=== PATIENT | male | born 1935 | race Caucasian/White ===

== ENCOUNTER 2017-03-01 08:23 | Emergency (ER) | payer OTHER, BC ==
[~2017-03-01] VITALS: Ht 172.7 cm; Wt 89.0 kg
[~2017-03-01 08:23] MED LIST: ASCO500T16 PO; ASPEC325 PO; CARV6.252 PO; CHOL100027 PO; CLC100X PO; LISI-461 PO; MULT-506 PO; ZCR20 PO
[2017-03-01 08:27] VITALS: TEMP 36.6; Ht 172.7 cm; Wt 89.0 kg
[2017-03-01] MEDS ORDERED: LISI-461 PO (08:55)
--- NOTE | 2017-03-01 08:56 | EMERGENCY ROOM VISIT NOTE ---
History Report prepared by Lm: Neetu Santos Under the Supervision of: Dr. Divina Galarza M.D. First contact with patient: 08:35 Chief Complaint: RECTAL PAIN Stated Complaint: RECTAL PAIN/HEMORRHOIDS Nursing Triage Summary: I think my "hemorrhoids are acting up" I am having rectal pain. "I dont know if there is any blood" History of Present Illness The patient is an 82 year old male who presents to the Emergency Room with complaints of persistent rectal pain that began two days ago. He currently rates his discomfort as a 5/10 in severity. The patient states that he has a history of hemorrhoids, noting that he has noticed increased pain for the past two days. He reports that his pain worsened suddenly. The patient reports increased bowel movements that are soft, but denies passing any large stools recently. He states that he began noticing that yesterday morning, but denies any hematochezia or melena. The patient additionally associates difficulty urinating and pain with urination. The patient denies any history of bowel surgeries or ulcerative colitis. He denies any abdominal pain. Source of History: patient Onset: two days ago Position: other (rectal) Symptom Intensity: 5/10 Timing: other (persistent) Associated Symptoms: + urinary symptoms (pain with urination), No abdominal pain, No melena, No hematochezia Note: Associated Symptoms: increased bowel movements that are soft. Review of Systems See HPI for pertinent positives & negatives. A total of 10 systems reviewed and were otherwise negative. Past Medical & Surgical Medical Problems: (1) Osteoporosis (2) Pneumothorax (3) Prostate ca Family History FH: cancer Social History Smoking Status: Never Smoker Marital Status: Housing Status: lives alone Occupation Status: retired Current/Historical Medications Scheduled Ascorbic Acid (Ascorbic Acid), 500 MG PO DAILY Aspirin (Aspirin), 325 MG PO QAM Carvedilol (Coreg), 12.5 MG PO BID Cholecalciferol (Vitamin D 1000 Unit), 1,000 INTER.UNIT PO DAILY Docusate Sodium (Docusate Sodium), 100 MG PO BID Lisinopril (Zestril), 10 MG PO DAILY Multivitamin (Multivitamin), 1 TAB PO DAILY Simvastatin (Simvastatin), 20 MG PO PM Allergies Coded Allergies: Sulfa Drugs (Unverified Allergy, Mild, UNKNOWN, 03/01/17) Physical Exam Vital Signs Date Time Temp Pulse Resp B/P (MAP) Pulse Ox O2 Delivery O2 Flow Rate FiO2 03/01/17 12:13 86 18 169/89 96 Room Air 03/01/17 10:39 90 16 175/82 97 Room Air 03/01/17 09:30 84 20 153/79 99 Room Air 03/01/17 08:27 36.6 90 18 183/94 95 Physical Exam Vital signs reviewed. General: Well-appearing male, in no significant distress. HEENT: No scleral icterus, PERRLA, neck supple. Atraumatic. Cardiovascular: Regular rate and rhythm, no extra sounds. Pulmonary: Clear to auscultation bilaterally, normal work of breathing. Abdomen: Soft, nontender, nondistended, positive bowel sounds. Rectal: Small amount of stool in rectum, no external hemorrhoids, no palpable mass, stool ball noted, guaiac negative Musculoskeletal: Atraumatic, no peripheral edema. Neurologic: Patient awake alert and oriented x 3 Skin: Warm, dry, no rash Medical Decision & Procedures ER Provider Diagnostic Interpretation: X-ray results as stated below per interpretation by me and the radiologist: SAM CLINICAL HISTORY: 82 years-old Male presenting with rectal pain, constipation. TECHNIQUE: Single supine view of the abdomen was obtained. COMPARISON: CT from 05/13/2009. FINDINGS: Brachytherapy seeds noted in the prostate. Large stool burden in the rectum. Mild gaseous distention of the more proximal colon. Moderate stool burden noted in the right colon. No bowel obstruction. No gross pneumoperitoneum. Osseous structures demonstrate mild degenerative change in the lumbar spine. Lung bases clear. IMPRESSION: 1. Large stool burden in the rectum. Electronically signed by: Thomas Vasquez M.D. 03/01/2017 10:10 AM Dictated Date/Time: 03/01/2017 10:08 AM Laboratory Results 03/01/17 09:23 Red Blood Count 4.66, Mean Corpuscular Volume 88.4, Mean Corpuscular Hemoglobin 30.0, Mean Corpuscular Hemoglobin Concent 34.0, Mean Platelet Volume 9.6, Neutrophils (%) (Auto) 75.8, Lymphocytes (%) (Auto) 11.8, Monocytes (%) (Auto) 11.4, Eosinophils (%) (Auto) 0.6, Basophils (%) (Auto) 0.2, Neutrophils # (Auto ) 6.29, Lymphocytes # (Auto) 0.98, Monocytes # (Auto) 0.95, Eosinophils # (Auto ) 0.05, Basophils # (Auto) 0.02 03/01/17 09:23 Test 03/01/17 09:23 03/01/17 09:45 White Blood Count 8.31 K/uL (4.8-10.8) Red Blood Count 4.66 M/uL (4.7-6.1) Hemoglobin 14.0 g/dL (14.0-18.0) Hematocrit 41.2 % (42-52) Mean Corpuscular Volume 88.4 fL (80-100) Mean Corpuscular Hemoglobin 30.0 pg (25-34) Mean Corpuscular Hemoglobin Concent 34.0 g/dl (32-36) Platelet Count 251 K/uL (130-400) Mean Platelet Volume 9.6 fL (7.4-10.4) Neutrophils (%) (Auto) 75.8 % Lymphocytes (%) (Auto) 11.8 % Monocytes (%) (Auto) 11.4 % Eosinophils (%) (Auto) 0.6 % Basophils (%) (Auto) 0.2 % Neutrophils # (Auto) 6.29 K/uL (1.4-6.5) Lymphocytes # (Auto) 0.98 K/uL (1.2-3.4) Monocytes # (Auto) 0.95 K/uL (0.11-0.59) Eosinophils # (Auto) 0.05 K/uL (0-0.5) Basophils # (Auto) 0.02 K/uL (0-0.2) RDW Standard Deviation 45.5 fL (36.4-46.3) RDW Coefficient of Variation 14.1 % (11.5-14.5) Immature Granulocyte % (Auto) 0.2 % Immature Granulocyte # (Auto) 0.02 K/uL (0.00-0.02) Anion Gap 8.0 mmol/L (3-11) Est Creatinine Clear Calc Drug Dose 62.8 ml/min Estimated GFR () 81.4 Estimated GFR (Non- 70.3 BUN/Creatinine Ratio 24.7 (10-20) Calcium Level 8.7 mg/dl (8.5-10.1) Total Bilirubin 0.9 mg/dl (0.2-1) Direct Bilirubin 0.3 mg/dl (0-0.2) Aspartate Amino Transf (AST/SGOT) 20 U/L (15-37) Alanine Aminotransferase (ALT/SGPT) 22 U/L (12-78) Alkaline Phosphatase 73 U/L (45-117) Total Protein 7.0 gm/dl (6.4-8.2) Albumin 3.7 gm/dl (3.4-5.0) Urine Color DK YELLOW Urine Appearance CLEAR (CLEAR) Urine pH 5.5 (4.5-7.5) Urine Specific [place] 1.028 (1.000-1.030) Urine Protein NEG (NEG) Urine Glucose (UA) NEG (NEG) Urine Ketones 2+ (NEG) Urine Occult Blood NEG (NEG) Urine Nitrite NEG (NEG) Urine Bilirubin NEG (NEG) Urine Urobilinogen NEG (NEG) Urine Leukocyte Esterase NEG (NEG) Laboratory results per my review. Medications Administered Medications (Trade) Dose Ordered Sig/Alie Route Start Time Stop Time Status Last Admin Dose Admin Miscellaneous (Soap Suds Enema) 1 ea NOW STAT OH 03/01/17 10:43 03/01/17 10:47 DC 03/01/17 10:43 1 ED Course 0850: Past medical records reviewed. The patient was evaluated in room A11B. A complete history and physical examination was performed. 1043: Ordered Soap Suds Enema 1 ea OH. 1150: I reevaluated the patient and he is doing well after having a large bowel movement. I discussed all the exam findings with him and I discussed the treatment plan. He verbalized complete understanding and agreement. He is ready to go home. Medical Decision The patient is an 82 year old male who presents to the ED with complaints of rectal pain. Differentials include Perirectal abscess, prostatitis, UTI, urinary retention, constipation, diverticulitis This pt was evaluated and appeared to be in no distress. IV access was obtained and lab work was drawn. Abdominal XR reveals large fecal burden. Bladder scan is ~200ml. UA is negative for infection. Pt was given a soap suds enema with large results. Pt was feeling much improved and was d/c. He will increase fiber in his diet and continue metamucil. Medication Reconcilliation Current Medication List: was personally reviewed by me Blood Pressure Screening Patient's blood pressure: Elevated blood pressure Blood pressure disposition: Referred to PCP Impression Primary Impression: Fecal retention Scribe Attestation The scribe's documentation has been prepared under my direction and personally reviewed by me in its entirety. I confirm that the note above accurately reflects all work, treatment, procedures, and medical decision making performed by me. Departure Information Dispostion Home / Self-Care Referrals Esteban Alcala D.O. (PCP) Forms HOME CARE DOCUMENTATION FORM, IMPORTANT VISIT INFORMATION, WORK / SCHOOL INSTRUCTIONS Patient Instructions My [facility] Additional Instructions Diagnosis: Fecal retention Continue your Metamucil supplementation daily. Increase the fiber in your diet. Please drink plenty of clear fluids. Follow-up with your physician this week for reevaluation. Return to the ER for worsening of symptoms or any medical concerns.
[2017-03-01] MEDS ORDERED: DOCU1TAB6 PO (08:57)
[2017-03-01 09:56] LABS: BUN/CREATININE RATIO 24.7 (10-20); CALCIUM 8.7 mg/dl (8.5-10.1)
[2017-03-01 10:01] LABS: MANUAL MICROSCOPIC REQUIRED? NO; REVIEW REQ? NO; URINE APPEARANCE CLEAR (CLEAR); URINE BILIRUBIN NEG (NEG); URINE COLOR DK YELLOW; URINE NITRITE NEG (NEG); URINE PH 5.5 (4.5-7.5); URINE SPECIFIC GRAVITY 1.028 (1.000-1.030); UROBILINOGEN NEG (NEG); ZZUR CULT IF INDIC CLEAN CATCH NO
--- NOTE | 2017-03-01 10:11 | DIAGNOSTIC IMAGING REPORT ---
[facility]UB CLINICAL HISTORY: 82 years-old Male presenting with rectal pain, constipation. TECHNIQUE: Single supine view of the abdomen was obtained. COMPARISON: CT from 05/13/2009. FINDINGS: Brachytherapy seeds noted in the prostate. Large stool burden in the rectum. Mild gaseous distention of the more proximal colon. Moderate stool burden noted in the right colon. No bowel obstruction. No gross pneumoperitoneum. Osseous structures demonstrate mild degenerative change in the lumbar spine. Lung bases clear. IMPRESSION: 1. Large stool burden in the rectum. Electronically signed by: Thomas Vasquez M.D. 03/01/2017 10:10 AM Dictated Date/Time: 03/01/2017 10:08 AM
[2017-03-01 10:14] LABS: BASO % 0.2 %; BASO ABS # 0.02 K/uL (0-0.2); COMPLETE YES; EOS % 0.6 %; HEMATOCRIT 41.2 % (42-52); IG% 0.2 %; LYMPH % 11.8 %; LYMPH ABS # 0.98 K/uL (1.2-3.4); MEAN CELL VOLUME 88.4 fL (80-100); MEAN PLATELET VOLUME 9.6 fL (7.4-10.4); MONO % 11.4 %; NEUT % 75.8 %; PLATELET COUNT 251 K/uL (130-400); RED BLOOD COUNT 4.66 M/uL (4.7-6.1); WHITE BLOOD COUNT 8.31 K/uL (4.8-10.8)
[2017-03-01] MEDS ORDERED: SOAP SUDS ENEMA PR STA (10:43)
[2017-03-01 12:13] VITALS: BP 169/89; PULSE 86; O2SAT 96
== END 2017-03-01 12:37 | disposition home or self-care (01) ==
LOC: C.EDB 08:25 → C.EDA 12:37
DX: K59.00 Constipation, unspecified (principal); K64.9 Unspecified hemorrhoids; M81.0 Age-related osteoporosis without current pathological fracture; Z79.82 Long term (current) use of aspirin; Z85.46 Personal history of malignant neoplasm of prostate

== ENCOUNTER 2019-07-25 07:15 | Inpatient (IN) ==
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
--- NOTE | 2019-07-06 10:36 | PAT Medication Instructions ---
Medication Instructions Date of Service July 06, 2019 Home Medications ascorbic acid (vitamin C) 500 mg PO DAILY aspirin 325 mg PO DAILY carvedilol 12.5 mg PO BID cholecalciferol (vitamin D3) 2,000 unit PO DAILY docusate sodium [Stool Softener] 100 mg PO BID hydrochlorothiazide 12.5 mg PO 2XWK lisinopril 20 mg PO QAM setkxucv-yjf-VT-lycopen-lutein [Centrum Silver] 1 tab PO DAILY risedronate 35 mg PO WK simvastatin 40 mg PO HS ASK your surgeon for instructions aspirin 325 mg PO DAILY STOP taking 2 weeks before surgery vpetfevn-vtv-QX-lycopen-lutein [Centrum Silver] 1 tab PO DAILY DO NOT take the morning of surgery ascorbic acid (vitamin C) 500 mg PO DAILY cholecalciferol (vitamin D3) 2,000 unit PO DAILY docusate sodium [Stool Softener] 100 mg PO BID hydrochlorothiazide 12.5 mg PO 2XWK lisinopril 20 mg PO QAM Take morning of surgery With a small sip of water, OTHERWISE NOTHING TO EAT OR DRINK AFTER MIDNIGHT: carvedilol 12.5 mg PO BID Take evening before surgery carvedilol 12.5 mg PO BID docusate sodium [Stool Softener] 100 mg PO BID simvastatin 40 mg PO HS Other Notes If you have any questions please call us at [phone] or [phone] or or [phone]
--- NOTE | 2019-07-06 10:59 | XRay Report ---
TWO VIEW CHEST CLINICAL HISTORY: Preoperative examination. FINDINGS: PA and lateral chest radiographs are compared to study dated 06/27/2014. The heart is enlarge d noting atherosclerotic calcification of the thoracic aorta. The pulmonary vasculature is noncongest ed. The lungs appear hyperinflated and hyperlucent with flattening of the diaphragm and increased ret rosternal clear space. This suggests obstructive physiology. There is bibasilar scarring/atelectasis. No airspace consolidation or pleural effusion is identified. There is no pneumothorax. The skeletal structures are osteopenic. The bony thorax appears intact. IMPRESSION: Cardiomegaly and suspect emphysema with no active disease in the chest. ACT 112: Negative or not required by law. Electronically signed by: Trent Maciel M.D. 07/06/2019 10:58 AM
[2019-07-06 11:38] LABS: Albumin Level 3.6 gm/dl (3.4-5.0); BUN Creatinine Ratio 24.5 (10-20); Calcium 8.8 mg/dl (8.5-10.1); Creatinine Clr Calc Pharmacy 70.6 ml/min; Est GFR (African American) 92.5; Est GFR (Non-African American) 79.8
[2019-07-06 12:12] LABS: Basophils # (auto) 0.03 K/uL (0-0.2); Basophils % (auto) 0.4 %; Eosinophils % (auto) 2.8 %; Hematocrit (blood only) 42.8 % (42-52); Hemoglobin 14.5 g/dL (14.0-18.0); Immature Granulocytes # (auto) 0.02 K/uL (0.00-0.02); Immature Granulocytes % (auto) 0.3 %; Lymphocytes # (auto) 1.62 K/uL (1.2-3.4); Lymphocytes % (auto) 23.1 %; Mean Corpuscular Hemoglobin 29.8 pg (25-34); Mean Corpuscular Hgb Conc 33.9 g/dL (32-36); Mean Corpuscular Volume 88.1 fL (80-100); Mean Platelet Volume 9.7 fL (7.4-10.4); Monocytes # (auto) 0.82 K/uL (0.11-0.59); Monocytes % (auto) 11.7 %; Neutrophils # (auto) 4.33 K/uL (1.4-6.5); Neutrophils % (auto) 61.7 %; Platelet Count 271 K/uL (130-400); RDW Coefficient of Variation 14.1 % (11.5-14.5); Red Blood Count 4.86 M/uL (4.7-6.1); White Blood Count 7.02 K/uL (4.8-10.8)
--- NOTE | 2019-07-06 12:16 | Electrocardiogram Report ---
Test Reason : Blood Pressure : / mmHG Vent. Rate : 063 BPM Atrial Rate : 063 BPM P-R Int : 198 ms QRS Dur : 144 ms QT Int : 438 ms P-R-T Axes : 068 081 -14 degrees QTc Int : 448 ms Normal sinus rhythm Left bundle branch block Abnormal ECG When compared with ECG of 27-JUN-2014 18:29, Premature ventricular complexes are no longer Present Left bundle branch block is now Present Confirmed by Alcides Smiley ([id number]) on 07/06/2019 12:16:27 PM Referred By: Ashok Booth Confirmed By:Alcides Smiley
[2019-07-06 12:22] LABS: Partial Thromboplastin Ratio 0.9; Partial Thromboplastin Time 25.6 Seconds (21.0-31.0); Prothrombin Time 10.2 Seconds (9.0-12.0)
[2019-07-06 12:32] LABS: Estimated Average Glucose 117 mg/dl; Hemoglobin A1C 5.7 % (4.5-5.6)
[2019-07-10 14:03] LABS: Appearance Urine Clear (Clear); Bilirubin Urine Negative (Negative); Blood Urine Negative (Negative); Color Urine Dark Yellow; Glucose Urine UA Negative (Negative); Ketones Urine Trace (Negative); Leukocyte Esterase Urine Negative (Negative); Nitrite Urine Negative (Negative); Protein Urine Negative (Negative); Specific Gravity Urine 1.032 (1.000-1.030); Urobilinogen Urine Negative (Negative)
[~2019-07-25 07:15] MED LIST changes: +ACETAMINOPHEN 500 MG TAB PO SCH; -ASCO500T16 PO; -ASPEC325 PO; +BUPIVACAINE 0.5 % 5 MG/1 ML PF 10ML VIAL ONE; +BUPIVACAINE/EPINEPHRINE 0.25% 1:200,000 30 ML VIAL ONE; -CARV6.252 PO; +CEFAZOLIN 2000MG 2,000 MG/15 ML SYR IV SCH; -CHOL100027 PO; -CLC100X PO; +CeleBREX 200 MG CAP PO SCH; +DEXAMETHASONE SOD INJ 4 MG/ML VIAL ONE; +FAMOTIDINE 20 MG TAB PO SCH; +GABAPENTIN 300 MG CAP PO SCH; -LISI-461 PO; +LR 500ML BOLUS, THEN 15ML/HR IV SCH; -MULT-506 PO; +ROPIVACAINE 0.5% HCL/PF 150 MG, BUPIVACAINE 0.5% MPF 30 ML, EPINEPHrine 30MG/30ML (OR U... INSTIL SCH; +TRANEXAMIC ACID / 0.7% NACL 1,000 MG/100 ML BAG IV SCH; -ZCR20 PO; +dexAMETHasone 4 MG TAB PO SCH
[2019-07-25] MEDS ORDERED: MIDAZOLAM HCL 1 MG/ML 2ML VIAL ONE (07:56)
[2019-07-25] MEDS ORDERED: fentaNYL citrate 100 MCG/2 ML VIAL ONE (07:57)
--- NOTE | 2019-07-25 08:23 | History & Physical Bridge Note ---
Date of Service July 25, 2019 History & Physical Bridge Note I have examined the patient, reviewed the History & Physical and in the interval since the performance of the History & Physical I have noted the following changes of clinical significance: no changes noted
[2019-07-25] MEDS ORDERED: ORTHO JOINT ANESTHETIC ONE (08:54)
[2019-07-25] MEDS ORDERED: BACITRACIN INJ 50,000 UNIT VIAL ONE (08:55)
[2019-07-25] MEDS ORDERED: ONDANSETRON INJ 2 MG/ML 2 ML VIAL ONE (08:56)
[2019-07-25] MEDS ORDERED: PROPOFOL IV EMULSION 10 MG/ML 20 ML VIAL IV ONE ×2 (08:56)
[2019-07-25] MEDS ORDERED: LIDOCAINE HCL 2% 2 ML VIAL/AMP(20MG/ML) INFIL ONE (08:56)
[2019-07-25] MEDS ORDERED: ONDANSETRON INJ 2 MG/ML 2 ML VIAL IV PRN ×2 (09:14→13:02)
[2019-07-25] MEDS ORDERED: ePHEDrine sulfate 50 MG/ML AMP IV PRN (09:14)
[2019-07-25] MEDS ORDERED: ATROPINE SULFATE 0.1 MG/ML 10ML SYR IV PRN (09:14)
[2019-07-25] MEDS ORDERED: fentaNYL citrate 100 MCG/2 ML VIAL IV PRN (09:14)
--- NOTE | 2019-07-25 10:50 | Operative Report ---
Post Operative Report Pre & Post Diagnosis Operation Date: 07/25/19 09:40 Pre-Op Diagnosis: RIGHT KNEE OSTEOARTHRITIS Post-Op Diagnosis: RIGHT KNEE OSTEOARTHRITIS I identified the patient and participated in the time-out.: Yes Procedure Operation Date: 07/25/19 09:40 Actual Procedures p Right Total Knee Arthroplasty, Cemented(Right) utilizing [employer] journey 2 patient matched total knee arthroplasty 7 femur 6 tibia 13 poly-32 oval patella- Ashok Booth DO Surgeon Ashok Booth DO Pharmacy Scheduler [facility] Estimated Blood Loss 5 Findings Consistent with Post-Op Diagnosis Patient resents with severe end-stage tricompartmental degenerative joint disease subchondral cystic changes marginal osteophytes bone to bone eburnated bone with varus alignment 3 degree flexion contracture and moderate to large effusion Specimens Bone and cartilage Drains Medium bore Hemovac Anesthesia Type MAC Spinal Regional Complications none Disposition Accompanied Patient To Recovery: No Disposition: Recovery Room Indications Patient presents with severe end-stage tricompartmental degenerative joint disease right knee no response to conservative management the above intraoperative findings no time surgery patient fell attempted Visco supplementation corticosteroid injection relative rest activity modification nonsteroidals presents with a severe end-stage DJD for total knee arthroplasty with the above intraoperative findings Description of Procedure After proper prepping and draping of the Right lower extremity anterior midline incision was made over the region of the extensor extensor mechanism after meticulous hemostasis was obtained and maintained in subcutaneous tissues a medial parapatellar incision was made The patella was subluxed lateralward the medial lateral gutter were cleaned from any hypertrophic synovitis and scar tissue of the distal femoral block was placed and the distal femoral osteotomy cut was made subsequently the chamfers anterior and posterior osteotomy cuts were made utilizing the 4-in-1 block the tibia was subsequently subluxed anteriorward medial and ateral meniscal remnants were excised in their entirety remnants of the anterior and posterior cruciate ligaments were excised in their entirety excellent exposure of the proximal tibia was obtained the tibial osteotomy guide was placed on the proximal tibial osteotomy cut was made once again the knee was irrigated with copious amounts of sterile saline solution the patella was subsequently everted lateralward thickened scar tissue around the patella was removed the patella was subsequently cut utilizing a freehand technique and was drilled prepared for final preparation and placement of patella socially flexion-extension gaps were checked and the equal and symmetric trials were placed to the appropriate femoral and tibial trials with poly-spacer being placed for equal flexion and extension gaps and full range of motion including extension to 0 and flexion to 140 the trial components after having been taken to recovery range of motion was subsequently removed meticulous hemostasis was obtained and maintained subsequently a knee block injection of joint cocktail including ropivacaine 0.5% 150 mg. Bupivacaine 0.5% epinephrine 1-200,030 mL's toradol 30 mg dexamethasone 4 mg ketamine 10 mg clonidine 100 micrograms normal saline solution 30 mg was infiltrated into the soft tissues of the posterior knee medial lateral gutters and periosteal synovium special attention was paid to protect neurovascular structures at all times subsequently trial components having been removed the knee was irrigated with sterile saline solution. debris was removed the proximal tibia was subsequently prepared and was made ready for the placement of the tibial component tibial component was also cemented and tamped into position the femoral component was subsequently placed and cemented in the position the patellar component was subsequently cemented in position because hemostasis once again obtained and maintained wound having been thoroughly irrigated with debridement and debridement lavage was performed as well as a medial parapatellar incision closed with #1 Vicryl in interrupted fashion subcutaneous was closed with #2 Vicryl skin was closed with skin clips. PA-C was necessary for prepping and drapping as well as wound closure of deep fascia Sub cutaneous tissue and skin and was necessary for the case. A sterile compressive dressing was placed patient was taken to recovery in stable condition of report dictated by Leobardo I attest to the content of the Intraoperative Record and any orders documented therein. Any exceptions are noted below. I attest to the content of the Intraoperative Record and any orders documented therein. Any exceptions are noted below.
--- NOTE | 2019-07-25 11:59 | XRay Report ---
XR knee RT 1 or 2V routine CLINICAL HISTORY: 84 years-old Male presenting with Surgical Post Op. TECHNIQUE: Frontal and crosstable lateral views of the right knee were obtained. COMPARISON: None. FINDINGS: Postsurgical changes of total right knee arthroplasty with patellar resurfacing. A surgical drain is in place. Expected intra-articular and soft tissue emphysema. Radiolucency along the tibial stem comp onent is likely within the acceptable range of normal postsurgical findings. No radiolucency subjacen t to the tibial plateau component or the femoral component. No periprosthetic fracture. No malalignme nt. IMPRESSION: Expected postsurgical appearance status post total right knee arthroplasty with patellar resurfacing. ACT 112: Negative or not required by law. Electronically signed by: Thomas Vasquez M.D. 07/25/2019 11:57 AM
[2019-07-25] MEDS ORDERED: MAGNESIUM HYDROXIDE SUSP 30 ML UDC PO PRN (13:02)
[2019-07-25] MEDS ORDERED: bisacodyL 10 MG SUPP PR PRN (13:02)
[2019-07-25] MEDS ORDERED: METOCLOPRAMIDE HCL INJ 5 MG/ML 2 ML VIAL IV PRN (13:02)
[2019-07-25] MEDS ORDERED: NALOXONE HCL 0.4 MG/1 ML VIAL/CARP IV PRN (13:02)
[2019-07-25] MEDS ORDERED: HYDROmorphone INJ 1 MG/ML SYRINGE IV PRN (13:02)
[2019-07-25] MEDS ORDERED: OXYCODONE HCL IR 5 MG TAB (IMMEDIATE RELEASE) PO PRN (13:02)
[2019-07-25] MEDS: SODIUM CHLORIDE 0.9% 1000ML 1,000 ML IV SCH ×2 (13:23→22:26)
--- NOTE | 2019-07-25 13:25 | Anesthesiology Progress Note ---
Date of Service July 25, 2019 Anesthesia Post Procedure Vital Signs Vital Signs: Temp Pulse Pulse Resp BP Pulse Ox 07/25/19 13:08 67 16 149/81 H 95 07/25/19 12:40 36.5 C 65 16 138/74 94 07/25/19 12:30 64 16 137/73 94 07/25/19 12:15 67 13 138/74 95 07/25/19 12:00 36.5 C 63 19 147/84 H 95 07/25/19 11:50 64 14 139/73 93 07/25/19 11:40 63 15 138/69 95 07/25/19 11:33 36.0 C L 65 18 125/68 99 07/25/19 07:50 36.4 C L 64 17 155/79 H 96 Transfer of Care Handoff Completed per policy Notes Mental Status: alert / awake / arousable Patient Amnestic to Procedure: Yes Nausea / Vomiting: adequately controlled Pain: adequately controlled Airway Patency, RR, SpO2: stable & adequate BP & HR: stable & adequate Hydration State: stable & adequate Neuraxial Anesthesia: was administered and sensory block is resolving Anesthetic Complications: no major complications apparent and Pt Satisfied with anesthetic care
[2019-07-25] MEDS: ACETAMINOPHEN 500 MG TAB PO SCH ×2 (14:10→21:45)
[2019-07-25] MEDS: KETOROLAC TROMETHAMINE 15 MG/ML VIAL IV SCH ×2 (14:11→20:07)
[2019-07-25] MEDS: CEFAZOLIN 2000MG 2,000 MG/15 ML SYR IV SCH (18:23)
[2019-07-25] MEDS: SIMVASTATIN 40 MG TAB PO SCH (20:15)
[2019-07-25] MEDS: DOCUSATE SODIUM 100 MG CAP PO SCH (20:16)
[2019-07-25] MEDS: SENNA 8.6 MG TAB PO SCH (20:16)
[2019-07-25] MEDS: carvediloL 12.5 MG TAB PO SCH (20:16)
[2019-07-26] MEDS: KETOROLAC TROMETHAMINE 15 MG/ML VIAL IV SCH ×2 (01:06→07:50)
[2019-07-26] MEDS: CEFAZOLIN 2000MG 2,000 MG/15 ML SYR IV SCH (01:07)
[2019-07-26] MEDS: ACETAMINOPHEN 500 MG TAB PO SCH ×3 (05:36→19:45)
[2019-07-26 06:21] LABS: Hematocrit (blood only) 34.1 % (42-52); Hemoglobin 11.7 g/dL (14.0-18.0); Mean Corpuscular Hemoglobin 29.8 pg (25-34); Mean Corpuscular Hgb Conc 34.3 g/dL (32-36); Mean Platelet Volume 9.6 fL (7.4-10.4); Platelet Count 214 K/uL (130-400); RDW Standard Deviation 44.6 fL (36.4-46.3); Red Blood Count 3.92 M/uL (4.7-6.1); White Blood Count 14.03 K/uL (4.8-10.8)
[2019-07-26 06:53] LABS: BUN Creatinine Ratio 22.3 (10-20); Calcium 7.9 mg/dl (8.5-10.1); Creatinine Clr Calc Pharmacy 62.9 ml/min; Est GFR (African American) 77.5; Est GFR (Non-African American) 66.9; Potassium 3.9 mmol/L (3.5-5.1)
--- NOTE | 2019-07-26 07:06 | Orthopedic Progress Note ---
Date of Service July 26, 2019 Assessment & Plan (1) History of total right knee replacement: POD #1 s/p Right TKA pt/ot dvt proph with ANUPAMA/SCD/ASA plan for d/c home with HHPT when stable Subjective POD #1 s/p Right TKA Review of Systems Constitutional: no fever, no chills and no sweats Respiratory: no cough and no dyspnea Cardiovascular: no chest pain and no dyspnea Gastrointestinal: no abdominal pain, no nausea and no vomiting Physical Exam Physical Exam: Vital Signs Temp 36.6 C 07/26/19 04:32 Pulse 75 07/26/19 04:32 Resp 15 07/26/19 04:32 BP 137/72 07/26/19 04:32 Pulse Ox 97 07/26/19 04:32 Intake & Output 07/25/19 07/26/19 07/26/19 18:59 06:59 18:59 Intake Total 1550 / 3731.667 2181.667 / 3731.66 7 Output Total 5 / 905 900 / 905 Balance 1545 / 2826.667 1281.667 / 2826.66 7 Weight 91.7 kg Intake: IV 900 / 2531.667 1631.667 / 2531.66 7 Lr 1,000 ml @ 15 mls/hr IV . 700 / 700 Q24H [facility] Rx#:[id number] Nss 1000ML 1,0 00 ml @ 100 mls/ 1631.667 / 1631.66 7 hr IV .Q10H [facility] Rx#:[id number] TRANEXAMIC ACI D / 0.7% NACL 1, 200 / 200 000 mg In 100 ml @ 600 mls/hr IV TODAY@0600 [facility] Rx#:[id number] IV Perioperative 650 / 650 Oral 550 / 550 Output: Urine 575 / 575 Estimated Blood Loss 5 / 5 Drain Output 325 / 325 Right Knee Hem ovac 325 / 325 Other: # Unmeasured Voi ds 1 Constitutional: WD/WN, vitals as above no acute distress Musculoskeletal: Right Leg: NVDI, calf SNT, negative anita sign. DP palpable, able to wiggle toes/ankle movement without difficulty. dressing clean dry and intact. Results & Data ([facility]) Vital Signs (Past 12 Hours) Vital Signs Temp Pulse Resp BP Pulse Ox 07/26/19 04:32 36.6 C 75 15 137/72 97 07/25/19 23:26 36.6 C 72 16 127/58 L 96 07/25/19 20:14 67 142/68 H Laboratory Results Laboratory Results WBC 14.03 K/uL (4.8-10.8) H 07/26/19 05:57 RBC 3.92 M/uL (4.7-6.1) L 07/26/19 05:57 Hgb 11.7 g/dL (14.0-18.0) L 07/26/19 05:57 Hct 34.1 % (42-52) L 07/26/19 05:57 MCV 87.0 fL (80-100) 07/26/19 05:57 MCH 29.8 pg (25-34) 07/26/19 05:57 MCHC 34.3 g/dL (32-36) 07/26/19 05:57 RDW Std Deviation 44.6 fL (36.4-46.3) 07/26/19 05:57 RDW Coeff of Shantal 14.0 % (11.5-14.5) 07/26/19 05:57 Plt Count 214 K/uL (130-400) 07/26/19 05:57 MPV 9.6 fL (7.4-10.4) 07/26/19 05:57 Immature Gran % (Auto) 0.3 % 07/06/19 10:12 Neut % (Auto) 61.7 % 07/06/19 10:12 Lymph % (Auto) 23.1 % 07/06/19 10:12 [place] % (Auto) 11.7 % 07/06/19 10:12 Eos % (Auto) 2.8 % 07/06/19 10:12 Baso % (Auto) 0.4 % 07/06/19 10:12 Immature Gran # (Auto) 0.02 K/uL (0.00-0.02) 07/06/19 10:12 Neut # (Auto) 4.33 K/uL (1.4-6.5) 07/06/19 10:12 Lymph # (Auto) 1.62 K/uL (1.2-3.4) 07/06/19 10:12 [place] # (Auto) 0.82 K/uL (0.11-0.59) H 07/06/19 10:12 Eos # (Auto) 0.20 K/uL (0-0.5) 07/06/19 10:12 Baso # (Auto) 0.03 K/uL (0-0.2) 07/06/19 10:12 PT 10.2 Seconds (9.0-12.0) 07/06/19 10:12 INR 1.0 (0.9-1.1) 07/06/19 10:12 APTT 25.6 Seconds (21.0-31.0) 07/06/19 10:12 PTT Ratio 0.9 07/06/19 10:12 Sodium 137 mmol/L (136-145) 07/26/19 05:57 Potassium 3.9 mmol/L (3.5-5.1) 07/26/19 05:57 Chloride 107 mmol/L (98-107) 07/26/19 05:57 Carbon Dioxide 23 mmol/L (21-32) 07/26/19 05:57 Anion Gap 7.0 (3-11) 07/26/19 05:57 BUN 23 mg/dl (7-18) H 07/26/19 05:57 Creatinine 1.03 mg/dl (0.6-1.4) 07/26/19 05:57 Est Cr Clr Drug Dosing 62.9 ml/min 07/26/19 05:57 Est GFR ( Amer) 77.5 07/26/19 05:57 Est GFR (Non-Af Amer) 66.9 07/26/19 05:57 BUN/Creatinine Ratio 22.3 (10-20) H 07/26/19 05:57 Glucose 110 mg/dl (70-99) H 07/26/19 05:57 Estimat Average Glucose 117 mg/dl 07/06/19 10:12 Hemoglobin A1c 5.7 % (4.5-5.6) H 07/06/19 10:12 Calcium 7.9 mg/dl (8.5-10.1) L 07/26/19 05:57 Albumin 3.6 gm/dl (3.4-5.0) 07/06/19 10:12 Urine Color Dark Yellow 07/10/19 Unknown Urine Appearance Clear (Clear) 07/10/19 Unknown Urine pH 5.0 (4.5-7.5) 07/10/19 Unknown Ur Specific [place] 1.032 (1.000-1.030) H 07/10/19 Unknown Urine Protein Negative (Negative) 07/10/19 Unknown Urine Glucose (UA) Negative (Negative) 07/10/19 Unknown Urine Ketones Trace (Negative) H 07/10/19 Unknown Urine Blood Negative (Negative) 07/10/19 Unknown Urine Nitrite Negative (Negative) 07/10/19 Unknown Urine Bilirubin Negative (Negative) 07/10/19 Unknown Urine Urobilinogen Negative (Negative) 07/10/19 Unknown Ur Leukocyte Esterase Negative (Negative) 07/10/19 Unknown Urine WBC (Auto) Cancelled 07/06/19 10:12 Urine RBC (Auto) Cancelled 07/06/19 10:12 U Hyaline Cast (Auto) Cancelled 07/06/19 10:12 U Epithel Cells (Auto) Cancelled 07/06/19 10:12 Urine Bacteria (Auto) Cancelled 07/06/19 10:12 Ur Renal Epithelial Cell Cancelled 07/06/19 10:12 Urine Crystals Cancelled 07/06/19 10:12 Calcium Oxalate Crystal Cancelled 07/06/19 10:12 Uric Acid Crystals Cancelled 07/06/19 10:12 Triple Phos Crystals Cancelled 07/06/19 10:12 Other Crystals Cancelled 07/06/19 10:12 Amorphous Sediment Cancelled 07/06/19 10:12 Granular Casts Cancelled 07/06/19 10:12 Waxy Casts Cancelled 07/06/19 10:12 RBC Casts Cancelled 07/06/19 10:12 WBC Casts Cancelled 07/06/19 10:12 Other Casts Cancelled 07/06/19 10:12 Urine Mucus Cancelled 07/06/19 10:12 Urine Other Cancelled 07/06/19 10:12 Urine Trichomonas Cancelled 07/06/19 10:12 Urine Yeast Cancelled 07/06/19 10:12 Urine Sperm Cancelled 07/06/19 10:12 Ur Oval Fat Bodies Cancelled 07/06/19 10:12 Blood Type O Positive 07/06/19 10:12 Antibody Screen NEGATIVE 07/06/19 10:12 Diagnostic Findings XR knee RT 1 or 2V routine CLINICAL HISTORY: 84 years-old Male presenting with Surgical Post Op. TECHNIQUE: Frontal and crosstable lateral views of the right knee were obtained. COMPARISON: None. FINDINGS: Postsurgical changes of total right knee arthroplasty with patellar resurfacing. A surgical drain is in place. Expected intra-articular and soft tissue emphysema. Radiolucency along the tibial stem component is likely within the acceptable range of normal postsurgical findings. No radiolucency subjacent to the tibial plateau component or the femoral component. No periprosthetic fracture. No malalignment. IMPRESSION: Expected postsurgical appearance status post total right knee arthroplasty with patellar resurfacing.
--- NOTE | 2019-07-26 08:26 | Anesthesiology Progress Note ---
Date of Service July 26, 2019 Anesthesia Post Procedure Vital Signs Vital Signs: Temp Pulse Pulse Resp BP Pulse Ox 07/26/19 07:34 36.5 C 76 16 146/66 H 97 07/26/19 04:32 36.6 C 75 15 137/72 97 07/25/19 23:26 36.6 C 72 16 127/58 L 96 07/25/19 20:14 67 142/68 H 07/25/19 18:37 36.4 C L 76 16 135/71 95 07/25/19 15:45 36.3 C L 73 16 153/82 H 95 07/25/19 14:40 36.6 C 74 16 157/77 H 98 07/25/19 13:40 36.4 C L 69 18 161/84 H 95 07/25/19 13:08 67 16 149/81 H 95 07/25/19 12:40 36.5 C 65 16 138/74 94 07/25/19 12:30 64 16 137/73 94 07/25/19 12:15 67 13 138/74 95 07/25/19 12:00 36.5 C 63 19 147/84 H 95 07/25/19 11:50 64 14 139/73 93 07/25/19 11:40 63 15 138/69 95 07/25/19 11:33 36.0 C L 65 18 125/68 99 Notes Mental Status: alert / awake / arousable and participated in evaluation Patient Amnestic to Procedure: Yes Nausea / Vomiting: adequately controlled Pain: adequately controlled Airway Patency, RR, SpO2: stable & adequate BP & HR: stable & adequate Hydration State: stable & adequate Neuraxial Anesthesia: was administered and sensory block resolved Anesthetic Complications: no major complications apparent and Pt Satisfied with anesthetic care
[2019-07-26] MEDS: ASPIRIN 325 MG ECTAB PO SCH (08:48)
[2019-07-26] MEDS: MULTIVITAMIN TAB PO SCH (08:48)
[2019-07-26] MEDS: DOCUSATE SODIUM 100 MG CAP PO SCH ×2 (08:48→19:46)
[2019-07-26] MEDS: carvediloL 12.5 MG TAB PO SCH ×2 (08:48→19:46)
[2019-07-26] MEDS: ASCORBIC ACID 500 MG TAB PO SCH (08:49)
[2019-07-26] MEDS: CHOLECALCIFEROL 1,000 UNITS 25 MCG TAB PO SCH (08:49)
[2019-07-26] MEDS: lisinopriL 20 MG TAB PO SCH (08:49)
--- NOTE | 2019-07-26 18:09 | Internal Medicine Consult Note ---
Date of Consultation July 26, 2019 Assessment & Plan (1) History of total right knee replacement: (2) Agitation: -Hospitalist medicine was consulted for "Increasing agitation and confusion" by Orthopedic Dr. Ashok Booth in regards of an 84 year old male with right knee arthritis and s/p Right Total Knee Arthroplasty, Cemented(Right) on 07/25/2019. It would appear that the initially plans was for patient to go to a physical rehabilitation center at the end of the hospital stay. However, today on 07/26/2019, patient pulled out the ELTON drain from the right knee as per nursing and he has been agitated and wanted to go home. -Hospitalist was consulted around 6 PM on 07/26/2019. Hospitalist immediately went to assess. Patient was wanting to walk out of the room with walker. Patient answering questions appropriately and he appears that he wanted to go home. Patient appears steady on the walker. He was cooperative to sit down on the hospital bed and allow the hospitalist to examined him. There are dressing over the right knee and the rest of the exam is benign. -On my evaluation, patient appears to be competent to make medical decisions to leave the hospital. However, as a consulting physician and not the patient's surgical doctor, I expressed to the patient's my lack of authority and expertise to financial services counselor him the risks and benefits of leaving the hospital and that as a consulting physician and not patient's primary doctor that I have no authority to discharge him from the hospital. Nursing staff have been informing patient's friend to come to the hospital as well as the surgical doctor. History of Present Illness Reason for Consultation: "Increasing agitation and confusion" Requesting Physician: Ashok Booth DO Attending Physician: Ashok Booth DO History of Present Illness -Hospitalist medicine was consulted for "Increasing agitation and confusion" by Orthopedic Dr. Ashok Booth in regards of an 84 year old male with right knee arthritis and s/p Right Total Knee Arthroplasty, Cemented(Right) on 07/25/2019. It would appear that the initially plans was for patient to go to a physical rehabilitation center at the end of the hospital stay. However, today on 07/26/2019, patient pulled out the ELTON drain from the right knee as per nursing and he has been agitated and wanted to go home. -Hospitalist was consulted around 6 PM on 07/26/2019. Hospitalist immediately went to assess. Patient was wanting to walk out of the room with walker. Patient an swering questions appropriately and he appears that he wanted to go home. Patient appears steady on the walker. He was cooperative to sit down on the hospital bed and allow the hospitalist to examined him. There are dressing over the right knee and the rest of the exam is benign. -On my evaluation, patient appears to be competent to make medical decisions to leave the hospital. However, as a consulting physician and not the patient's surgical doctor, I expressed to the patient's my lack of authority and expertise to financial services counselor him the risks and benefits of leaving the hospital and that as a consulting physician and not patient's primary doctor that I have no authority to discharge him from the hospital. Nursing staff have been informing patient's friend to come to the hospital as well as the surgical doctor. Allergies Allergy/AdvReac Type Severity Reaction Status Date / Time Sulfa (Sulfonamide Allergy Unknown REACTION Verified 07/25/19 07:41 Antibiotics) WAS 40 YR AGO, PT DOES NOT REMEMBER Home Medications Home Medications Medication Instructions Recorded Confirmed Type ascorbic acid (vitamin C) [Vitamin 500 mg PO DAILY 07/05/19 07/25/19 History C] aspirin 325 mg PO DAILY 07/05/19 07/25/19 History carvedilol 12.5 mg PO BID 07/05/19 07/05/19 History cholecalciferol (vitamin D3) 2,000 unit PO DAILY 07/05/19 07/25/19 History [Vitamin D3] docusate sodium [Stool Softener] 100 mg PO BID 07/05/19 07/25/19 History hydrochlorothiazide 12.5 mg PO 2XWK 07/05/19 07/05/19 History lisinopril 20 mg PO QAM 07/05/19 07/25/19 History cxniqwnn-umw-UG-lycopen-lutein 1 tab PO DAILY 07/05/19 07/25/19 History [Centrum Silver] risedronate 35 mg PO WK 07/05/19 07/05/19 History simvastatin 40 mg PO HS 07/05/19 07/05/19 History Patient History Family History Unknown No family history of adverse response to anesthesia Social History Preferred Language: Luxem[place]ish Communication Ability: Effective Adjuster Piano Action Required: No Beliefs That Will Affect Care: None Current Living Situation: Alone Other Information That Helps Us Care for You: No Feels Safe at Home: Yes Smoking Status: Never smoker Do You Dip or Chew Tobacco: No ; Hx Substance Use: No Review of Systems Review of Systems: All systems reviewed & are unremarkable except as noted in HPI & below Constitutional: as per Subjective / HPI Physical Exam Constitutional: comfortable Eyes: PERRL, conjunctivae normal, anicteric sclerae EOM intact bilaterally ENMT: external ear and nose normal, oropharynx normal Neck: normal visual inspection Respiratory: normal respiratory effort, lungs clear to auscultation Cardiovascular: RRR, no murmur, no edema Gastrointestinal (Abdomen): normal bowel sounds, soft, nontender, no hepatosplenomegaly Musculoskeletal: Head/Neck/Chest: normocephalic and head atraumatic Neurologic: PERRL, EOMI, accommodation nl, no face palsy, no dysarthria CN's II-XI intact bilaterally Psychiatric: A+Ox3, euthymic affect Results & Data Vital Signs (Past 12 Hours) Vital Signs Temp Pulse Resp BP Pulse Ox 07/26/19 15:01 36.4 C L 71 16 126/75 92 07/26/19 11:28 36.6 C 74 16 132/69 98 07/26/19 07:34 36.5 C 76 16 146/66 H 97
[2019-07-26] MEDS ORDERED: LORazepam 0.5 MG/1 ML VIAL IV STA (19:40)
[2019-07-26] MEDS ORDERED: LORazepam 0.5 MG TAB PO STA (19:41)
[2019-07-26] MEDS: SIMVASTATIN 40 MG TAB PO SCH (19:46)
[2019-07-26] MEDS: SENNA 8.6 MG TAB PO SCH (19:46)
[2019-07-26] MEDS: SODIUM CHLORIDE 0.9% 1000ML 1,000 ML IV SCH (22:59)
[2019-07-27] MEDS ORDERED: LORazepam 0.25 MG/0.5 ML VIAL IV STA (00:39)
[2019-07-27 04:00] LABS: Appearance Urine Clear (Clear); Bilirubin Urine Negative (Negative); Blood Urine Negative (Negative); Color Urine Dark Yellow; Glucose Urine UA Negative (Negative); Ketones Urine Trace (Negative); Leukocyte Esterase Urine Negative (Negative); Nitrite Urine Negative (Negative); Protein Urine Negative (Negative); Specific Gravity Urine 1.032 (1.000-1.030); Urobilinogen Urine Negative (Negative)
[2019-07-27] MEDS: ACETAMINOPHEN 500 MG TAB PO SCH ×3 (05:14→21:12)
--- NOTE | 2019-07-27 07:19 | Orthopedic Progress Note ---
Date of Service July 27, 2019 Assessment & Plan (1) History of total right knee replacement: POD #2 s/p Right TKA pt/ot dvt proph with ANUPAMA/SCD/ASA will place consult for CM to discuss poss rehab vs SNF, patient lives alone at home. Subjective POD #2 s/p Right TKA patient has slight confusion this am, after questioning able to answer questions appropriately. At first thought he was at home in his bed but then able to answer that he is here in the hospital and just had his knee replaced. Review of Systems Review of Systems: All systems reviewed & are unremarkable except as noted in HPI & below Constitutional: no fever and no chills Respiratory: no cough and no dyspnea Cardiovascular: no chest pain, no dyspnea and no orthopnea Gastrointestinal: no abdominal pain, no nausea and no vomiting Physical Exam Physical Exam: Vital Signs Temp 36.4 C L 07/26/19 23:13 Pulse 79 07/26/19 23:13 Resp 16 07/26/19 23:13 BP 143/74 H 07/26/19 23:13 Pulse Ox 97 07/26/19 23:13 Intake & Output 07/26/19 07/27/19 07/27/19 18:59 06:59 18:59 Intake Total 650.333 / 650.333 Output Total 150 / 350 200 / 350 Balance -150 / 300.333 450.333 / 300.333 Intake: IV 525.333 / 525.333 Nss 1000ML 1,0 00 ml @ 80 mls/hr 525.333 / 525.333 IV .[id number] SC H Rx#:[id number] Oral 125 / 125 Output: Urine 150 / 350 200 / 350 Other: # Unmeasured Voi ds 1 1 Constitutional: WD/WN, vitals as above no acute distress Musculoskeletal: Right leg: NVDI, calf SNT, negative anita sign. DP palpable, able to wiggle toes/ankle movement without difficulty. Prineo clean dry and intact. expected post-operative bruising noted. Results & Data ([facility]) Vital Signs (Past 12 Hours) Vital Signs Temp Pulse Resp BP Pulse Ox 07/26/19 23:13 36.4 C L 79 16 143/74 H 97 Laboratory Results Laboratory Results WBC 14.03 K/uL (4.8-10.8) H 07/26/19 05:57 RBC 3.92 M/uL (4.7-6.1) L 07/26/19 05:57 Hgb 11.7 g/dL (14.0-18.0) L 07/26/19 05:57 Hct 34.1 % (42-52) L 07/26/19 05:57 MCV 87.0 fL (80-100) 07/26/19 05:57 MCH 29.8 pg (25-34) 07/26/19 05:57 MCHC 34.3 g/dL (32-36) 07/26/19 05:57 RDW Std Deviation 44.6 fL (36.4-46.3) 07/26/19 05:57 RDW Coeff of Shantal 14.0 % (11.5-14.5) 07/26/19 05:57 Plt Count 214 K/uL (130-400) 07/26/19 05:57 MPV 9.6 fL (7.4-10.4) 07/26/19 05:57 Immature Gran % (Auto) 0.3 % 07/06/19 10:12 Neut % (Auto) 61.7 % 07/06/19 10:12 Lymph % (Auto) 23.1 % 07/06/19 10:12 Treasure % (Auto) 11.7 % 07/06/19 10:12 Eos % (Auto) 2.8 % 07/06/19 10:12 Baso % (Auto) 0.4 % 07/06/19 10:12 Immature Gran # (Auto) 0.02 K/uL (0.00-0.02) 07/06/19 10:12 Neut # (Auto) 4.33 K/uL (1.4-6.5) 07/06/19 10:12 Lymph # (Auto) 1.62 K/uL (1.2-3.4) 07/06/19 10:12 Treasure # (Auto) 0.82 K/uL (0.11-0.59) H 07/06/19 10:12 Eos # (Auto) 0.20 K/uL (0-0.5) 07/06/19 10:12 Baso # (Auto) 0.03 K/uL (0-0.2) 07/06/19 10:12 PT 10.2 Seconds (9.0-12.0) 07/06/19 10:12 INR 1.0 (0.9-1.1) 07/06/19 10:12 APTT 25.6 Seconds (21.0-31.0) 07/06/19 10:12 PTT Ratio 0.9 07/06/19 10:12 Sodium 137 mmol/L (136-145) 07/26/19 05:57 Potassium 3.9 mmol/L (3.5-5.1) 07/26/19 05:57 Chloride 107 mmol/L (98-107) 07/26/19 05:57 Carbon Dioxide 23 mmol/L (21-32) 07/26/19 05:57 Anion Gap 7.0 (3-11) 07/26/19 05:57 BUN 23 mg/dl (7-18) H 07/26/19 05:57 Creatinine 1.03 mg/dl (0.6-1.4) 07/26/19 05:57 Est Cr Clr Drug Dosing 62.9 ml/min 07/26/19 05:57 Est GFR ( Amer) 77.5 07/26/19 05:57 Est GFR (Non-Af Amer) 66.9 07/26/19 05:57 BUN/Creatinine Ratio 22.3 (10-20) H 07/26/19 05:57 Glucose 110 mg/dl (70-99) H 07/26/19 05:57 Estimat Average Glucose 117 mg/dl 07/06/19 10:12 Hemoglobin A1c 5.7 % (4.5-5.6) H 07/06/19 10:12 Calcium 7.9 mg/dl (8.5-10.1) L 07/26/19 05:57 Albumin 3.6 gm/dl (3.4-5.0) 07/06/19 10:12 Urine Color Dark Yellow 07/27/19 03:45 Urine Appearance Clear (Clear) 07/27/19 03:45 Urine pH 5.0 (4.5-7.5) 07/27/19 03:45 Ur Specific Raymond 1.032 (1.000-1.030) H 07/27/19 03:45 Urine Protein Negative (Negative) 07/27/19 03:45 Urine Glucose (UA) Negative (Negative) 07/27/19 03:45 Urine Ketones Trace (Negative) H 07/27/19 03:45 Urine Blood Negative (Negative) 07/27/19 03:45 Urine Nitrite Negative (Negative) 07/27/19 03:45 Urine Bilirubin Negative (Negative) 07/27/19 03:45 Urine Urobilinogen Negative (Negative) 07/27/19 03:45 Ur Leukocyte Esterase Negative (Negative) 07/27/19 03:45 Urine WBC (Auto) Cancelled 07/06/19 10:12 Urine RBC (Auto) Cancelled 07/06/19 10:12 U Hyaline Cast (Auto) Cancelled 07/06/19 10:12 U Epithel Cells (Auto) Cancelled 07/06/19 10:12 Urine Bacteria (Auto) Cancelled 07/06/19 10:12 Ur Renal Epithelial Cell Cancelled 07/06/19 10:12 Urine Crystals Cancelled 07/06/19 10:12 Calcium Oxalate Crystal Cancelled 07/06/19 10:12 Uric Acid Crystals Cancelled 07/06/19 10:12 Triple Phos Crystals Cancelled 07/06/19 10:12 Other Crystals Cancelled 07/06/19 10:12 Amorphous Sediment Cancelled 07/06/19 10:12 Granular Casts Cancelled 07/06/19 10:12 Waxy Casts Cancelled 07/06/19 10:12 RBC Casts Cancelled 07/06/19 10:12 WBC Casts Cancelled 07/06/19 10:12 Other Casts Cancelled 07/06/19 10:12 Urine Mucus Cancelled 07/06/19 10:12 Urine Other Cancelled 07/06/19 10:12 Urine Trichomonas Cancelled 07/06/19 10:12 Urine Yeast Cancelled 07/06/19 10:12 Urine Sperm Cancelled 07/06/19 10:12 Ur Oval Fat Bodies Cancelled 07/06/19 10:12 Blood Type O Positive 07/06/19 10:12 Antibody Screen NEGATIVE 07/06/19 10:12
[2019-07-27] MEDS: ASPIRIN 325 MG ECTAB PO SCH (07:34)
[2019-07-27] MEDS: carvediloL 12.5 MG TAB PO SCH ×2 (07:34→21:12)
[2019-07-27] MEDS: CHOLECALCIFEROL 1,000 UNITS 25 MCG TAB PO SCH (07:35)
[2019-07-27] MEDS: ASCORBIC ACID 500 MG TAB PO SCH (07:35)
[2019-07-27] MEDS: MULTIVITAMIN TAB PO SCH (07:35)
[2019-07-27] MEDS: lisinopriL 20 MG TAB PO SCH (07:35)
[2019-07-27] MEDS: DOCUSATE SODIUM 100 MG CAP PO SCH ×2 (07:35→21:12)
[2019-07-27] MEDS: SODIUM CHLORIDE 0.9% 1000ML 1,000 ML IV SCH (11:31)
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
--- NOTE | 2019-07-27 17:19 | Hospitalist Progress Note ---
Date of Service July 27, 2019 Assessment & Plan (1) History of total right knee replacement: (2) Agitation: -Hospitalist medicine was consulted for "Increasing agitation and confusion" by Orthopedic Dr. Ashok Booth in regards of an 84 year old male with right knee arthritis and s/p Right Total Knee Arthroplasty, Cemented(Right) on 07/25/2019. It would appear that the initially plans was for patient to go to a physical rehabilitation center at the end of the hospital stay. However, today on 07/26/2019, patient pulled out the ELTON drain from the right knee as per nursing and he has been agitated and wanted to go home. -Hospitalist was consulted around 6 PM on 07/26/2019. Hospitalist immediately went to assess. Patient was wanting to walk out of the room with walker. Patient answering questions appropriately and he appears that he wanted to go home. Patient appears steady on the walker. He was cooperative to sit down on the hospital bed and allow the hospitalist to examined him. There are dressing over the right knee and the rest of the exam is benign. -patient had Hazel Whiteside called on 07/26/2019 because of his insistent to leave the hospital and nursing concerned about his medical decision making ability -patient did get Psychiatry evaluation and intermittent dose of Ativan overnight -07/26/2019 urine analysis is without infection -07/27/2019: patient has agreed to stay in hospital for symptomatic management of right knee. right knee with ice. Patient reports some discomfort there. Otherwise no acute complaints of shortness of breath or chest pain or abdomen pain or nausea or dizziness or headache. Patient's friend at bedside also clarifying that plans for patient to be discharged to [facility] on 07/28/2019 with family to provide the transport (3) HTN (hypertension): -continue blood pressure medications of lisinopril Subjective patient has agreed to stay in hospital for symptomatic management of right knee. right knee with ice. Patient reports some discomfort there. Otherwise no acute complaints of shortness of breath or chest pain or abdomen pain or nausea or dizziness or headache. Patient's friend at bedside also clarifying that plans for patient to be discharged to [facility] on 07/28/2019 with family to provide the transport Review of Systems Review of Systems: All systems reviewed & are unremarkable except as noted in HPI & below Physical Exam Constitutional: comfortable Eyes: PERRL, conjunctivae normal, anicteric sclerae EOM intact bilaterally ENMT: external ear and nose normal, oropharynx normal Neck: normal visual inspection Respiratory: normal respiratory effort, lungs clear to auscultation Cardiovascular: RRR, no murmur, no edema Gastrointestinal (Abdomen): normal bowel sounds, soft, nontender, no hepatosplenomegaly Musculoskeletal: Head/Neck/Chest: normocephalic and head atraumatic right knee with dressing and ice pack over the knee Neurologic: PERRL, EOMI, accommodation nl, no face palsy, no dysarthria CN's II-XI intact bilaterally Psychiatric: A+Ox3, euthymic affect Results & Data ([facility]) Vital Signs (Past 12 Hours) Vital Signs Temp Pulse Resp BP Pulse Ox 07/27/19 15:01 36.6 C 78 16 144/72 H 96 07/27/19 07:33 36.9 C 83 14 149/68 H 95
[2019-07-27] MEDS: SENNA 8.6 MG TAB PO SCH (21:12)
[2019-07-27] MEDS: SIMVASTATIN 40 MG TAB PO SCH (21:12)
[2019-07-28] MEDS: ACETAMINOPHEN 500 MG TAB PO SCH (05:59)
[2019-07-28] MEDS ORDERED: RISEDRONATE SODIUM 35 MG TAB PO SCH (06:30)
[2019-07-28] MEDS: ASCORBIC ACID 500 MG TAB PO SCH (08:49)
[2019-07-28] MEDS: DOCUSATE SODIUM 100 MG CAP PO SCH (08:49)
[2019-07-28] MEDS: MULTIVITAMIN TAB PO SCH (08:49)
[2019-07-28] MEDS: carvediloL 12.5 MG TAB PO SCH (08:49)
[2019-07-28] MEDS: lisinopriL 20 MG TAB PO SCH (08:49)
[2019-07-28] MEDS: CHOLECALCIFEROL 1,000 UNITS 25 MCG TAB PO SCH (08:49)
[2019-07-28] MEDS: ASPIRIN 325 MG ECTAB PO SCH (08:49)
--- NOTE | 2019-07-28 09:58 | Orthopedic Progress Note ---
Date of Service July 28, 2019 Assessment & Plan (1) History of total right knee replacement: POD #3 s/p Right TKA pt/ot dvt proph with ANUPAMA/SCD/ASA DC [facility]. Subjective Pt lying in bed awake, alert. No complaints this AM. Pain controlled. Denies SOB,CP, LH. Patient had an earlier bout with confusion when he was first admitted after surgery. Nursing states that patient did well overnight and has had no other problems since that time. Physical Exam Physical Exam: Incision C/D/I. Calves soft, NT. NV intact. Swelling of the knee noted consistent with surgery. Ecchymosis noted posteriorly. Results & Data ([facility]) Vital Signs (Past 12 Hours) Vital Signs Temp Pulse Resp BP Pulse Ox 07/28/19 07:03 36.7 C 86 17 168/72 H 96 07/27/19 23:17 36.4 C L 81 17 151/70 H 96
--- NOTE | 2019-07-28 10:39 | Hospitalist Progress Note ---
Date of Service July 28, 2019 Assessment & Plan (1) History of total right knee replacement: (2) Agitation: -Hospitalist medicine was consulted for "Increasing agitation and confusion" by Orthopedic Dr. Ashok Booth in regards of an 84 year old male with right knee arthritis and s/p Right Total Knee Arthroplasty, Cemented(Right) on 07/25/2019. It would appear that the initially plans was for patient to go to a physical rehabilitation center at the end of the hospital stay. However, today on 07/26/2019, patient pulled out the ELTON drain from the right knee as per nursing and he has been agitated and wanted to go home. -Hospitalist was consulted around 6 PM on 07/26/2019. Hospitalist immediately went to assess. Patient was wanting to walk out of the room with walker. Patient answering questions appropriately and he appears that he wanted to go home. Patient appears steady on the walker. He was cooperative to sit down on the hospital bed and allow the hospitalist to examined him. There are dressing over the right knee and the rest of the exam is benign. -patient had [facility] called on 07/26/2019 because of his insistent to leave the hospital and nursing concerned about his medical decision making ability -patient did get Psychiatry evaluation and intermittent dose of Ativan overnight -07/26/2019 urine analysis is without infection -07/27/2019: patient has agreed to stay in hospital for symptomatic management of right knee. right knee with ice. Patient reports some discomfort there. Otherwise no acute complaints of shortness of breath or chest pain or abdomen pain or nausea or dizziness or headache. Patient's friend at bedside also clarifying that plans for patient to be discharged to [facility] on 07/28/2019 with family to provide the transport -07/28/2019 discharge to [facility] as per orthopedics (3) HTN (hypertension): -continue blood pressure medications of lisinopril, patient may continue home blood pressure medications on discharge, outpatient management of blood pressures. expect that when pain of left knee decreases, then blood pressures will have improvements Subjective Patient seen and examined at bedside. no acute distress. he is pleasant. he denies worsening discomforts of left knee. breathing on room air. no respiratory distress. patient has no acute complaints or concerns Review of Systems Review of Systems: All systems reviewed & are unremarkable except as noted in HPI & below Physical Exam Constitutional: comfortable Eyes: PERRL, conjunctivae normal, anicteric sclerae EOM intact bilaterally ENMT: external ear and nose normal, oropharynx normal Neck: normal visual inspection Respiratory: normal respiratory effort, lungs clear to auscultation Cardiovascular: RRR, no murmur, no edema Gastrointestinal (Abdomen): normal bowel sounds, soft, nontender, no hepatosplenomegaly Musculoskeletal: Head/Neck/Chest: normocephalic and head atraumatic right knee bruising Neurologic: PERRL, EOMI, accommodation nl, no face palsy, no dysarthria CN's II-XI intact bilaterally Psychiatric: A+Ox3, euthymic affect Results & Data ([facility]) Vital Signs (Past 12 Hours) Vital Signs Temp Pulse Pulse Resp BP Pulse Ox 07/28/19 10:11 36.7 C 86 84 17 168/72 H 96 07/28/19 07:03 36.7 C 86 17 168/72 H 96 07/27/19 23:17 36.4 C L 81 17 151/70 H 96
--- NOTE | 2019-07-29 19:20 | Discharge Summary ---
Date of Service date of discharge: July 28, 2019 date of admission: 07-25-19 Admission HPI Per Admitting Provider Mr Cooper is a 84 year old male who complains of right knee pain, presents for pre-op eval prior to a right total knee replacement. He presents with pain and stiffness on the right side. He states that the symptoms have been chronic non- traumatic. 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 The symptoms occur constantly with intermittent worsening. Currently the patient states that the symptoms are moderate-severe. The pain is described as aching, discomforting, throbbing, sharp and shooting. The symptoms are aggravated by ascending stairs, descending stairs, daily activities, driving, first steps while awake, kneeling, movement, repetitive activities, sleeping on the affected side, squatting, walking and weight bearing. In addition to right knee pain the patient is also experiencing decreased mobility, difficulty bending, difficulty going to sleep, limping, nighttime awakening, pain, stiffness, tenderness and weakness. Patient has been treated with previous injections, visco supplementation and corticosteroid injections. No relief with injections. Patient ambulates daily with cane. Principal Diagnosis right knee osteoarthritis Discharge Exam Vital Signs Temp 36.7 C 07/28/19 10:11 Pulse 86 07/28/19 10:11 Resp 17 07/28/19 10:11 BP 168/72 H 07/28/19 10:11 Pulse Ox 96 07/28/19 10:11 Musculoskeletal Right knee: NVDI, calf SNT, negative anita sign. DP palpable, able to wiggle toes/ankle movement without difficulty. Prineo dressing clean dry and intact. expected post-operative bruising noted. Discharge Data Allergies Allergy/AdvReac Type Severity Reaction Status Date / Time Sulfa (Sulfonamide Allergy Unknown Unknown Verified 07/29/19 15:23 Antibiotics) Consultations 07/25/19 13:02 Consult Case Management - Discharge Planning Routine 07/26/19 17:37 Consult Hospitalist Routine 07/26/19 18:32 Consult Psychiatry Routine Procedures Performed Operation Date: 07/25/19 09:40 Actual Procedures p Right Total Knee Arthroplasty, Cemented(Right) - Ashok Booth DO Ordered Studies 07/25/19 05:00 US - OR guided needle placemen Routine Hospital Course (1) History of total right knee replacement: POD #3 s/p Right TKA pt/ot dvt proph with ANUPAMA/SCD/ASA DC [facility]. Total Time Total Time Spent Total Time Spent (In Minutes): 20 Total Time Includes: Examination of the Patient, Discharge Planning and Medication Reconciliation Discharge Plan Discharge Items Patient Disposition: Transfer Inpatient Rehab Fac Reason For Visit: RIGHT KNEE OSTEOARTHRITIS Discharge Diagnosis: Right Total knee replacement Activity: Per Instructions section Lifting: Wait until after follow-up appointment Weightbearing: Full weightbearing Weightbearing Comment: as tolerated with walker Non-emergency contact: Surgeon Call non-emergency contact if: you have any medication questions, your pain is not controlled, your temperature is above 101, your wound has increased redness and your wound pain has increased Follow-up/Referrals: Esteban Alcala, [Primary Care Provider] - Diet: Regular Addtl Attending Provider Instructions: ACTIVITY RECOMMENDATIONS: SELF CARE INSTRUCTIONS AFTER TOTAL KNEE REPLACEMENT A. You may need to continue a physical therapy program after discharge from the hospital. There are several options available to you. Your doctor will assist you in selecting the best one for you. 1. An out-patient facility 2 to 3 times a week for therapy or home therapy. 2. Continue working on all exercises taught to you in the hospital. Your goals should be to increase bending of your knee to 90 degrees and beyond and to fully straighten your knee. B. You may progress at your own pace from walking with a walker or crutches to a cane; then to no assistive devices. C. Make walking a part of your daily routine. Be up as much as comfortable with rest periods throughout the day. Rest with leg elevation is very important. Use the ice wrap frequently for the first 3-4 weeks. D. There are no restrictions on activities. You may ride in a car, shop, participate in rod buster and all social activities. E. Wear the long elastic stockings (ANUPAMA hose) 20 hours a day for 2 weeks after surgery. They can be removed several times a day for laundering and for a bath. F. You may shower, no tub baths until cleared by your doctor. SPECIAL CARE INSTRUCTIONS: VERY IMPORTANT TO READ AND REVIEW A. There are a few signs you need to watch for after you are home. Call [facility] if you notice any of the followin. Increased severe knee pain. Some pain is expected especially when you exercise. 2. Increased swelling in your leg or knee; pain or swelling of the calf muscle in either lower leg. 3. Any fluid drainage from the incision. 4. Shortness of breath or chest pain. B. Please call [facility] at if you have any concerns or questions about your operation or recovery. The doctor or his nurse will return your call promptly. C. You must take antibiotics before dental work, bladder, bowel or other surgery. Your doctor will provide you with a permanent care to carry describing this precaution. IMPORTANT: * REMEMBER TO TAKE ASPIRIN, 81 MG, TWICE DAILY FOR 4 WEEKS UNLESS OTHERWISE DIRECTED. THIS IS YOUR BLOOD THINNER. * HIGH RISK PATIENTS MAY BE PRESCRIBED A STRONGER BLOOD THINNER. THIS WILL BE PROVIDED AT DISCHARGE. * CALL IF INCREASED PAIN, REDNESS, DRAINAGE OR FEVER GREATER THAT 101. * WEAR ANUPAMA HOSE 20 HOURS PER DAY FOR 2 WEEKS. * DERMABOND Prineo- This is a mesh tape dressing that is covered with glue. It should remain in place until the incision is properly healed, usually 10-14 days. This dressing is designed to naturally slough off. You may trim the excess mesh tape as it peels off. Incision may be briefly wet in a shower. Dry immediately by blotting with a clean, dry towel. Do not bath or swim until instructed by your doctor. Do not scratch, rub, or pick at the dressing. Do not apply any topical ointments or lotions until dressing is completely removed and/or instructed by your doctor. There may be a small piece of suture material at one end of your incision. Do not pull or trim this. If it is bothersome or catching on clothing, you may cover it with a band-aid. IF INCISION IS LEAKING THROUGH DRESSING, CALL THE OFFICE . FOLLOW UP VISIT: If appointment is not already scheduled: Please call [facility] to make a follow-up appointment for 2 weeks after your surgery at . Addtl Hand I Tube Bender Provider Instructions: outpatient management of blood pressures Pending Studies at Discharge: No Stand-Alone Forms: My DermApproved, Opioid Pain Management Skilled Items Patient informed of condition?: Yes DNR: No Discharge Level of Care: Acute rehab Communicable Disease: No Discharge Prognosis: Stable Lines: None Urinary Catheter: No Medications and DC Order Prescriptions: Continued carvedilol 12.5 mg Tablet 12.5 mg PO Q12H RF: 0 aspirin 325 mg Tablet 325 mg PO QAM RF: 0 lisinopril 20 mg Tablet 20 mg PO QAM RF: 0 ascorbic acid (vitamin C) [Vitamin C] 500 mg Tablet 500 mg PO QAM RF: 0 docusate sodium [Stool Softener] 100 mg Capsule 100 mg PO BID RF: 0 risedronate 35 mg Tablet 35 mg PO WK RF: 0 hydrochlorothiazide 12.5 mg Tablet 12.5 mg PO 2XWK RF: 0 cholecalciferol (vitamin D3) [Vitamin D3] 2,000 unit Tablet 2,000 unit PO QAM RF: 0 No Action atorvastatin 20 mg Tablet 20 mg PO HS RF: 0 multivitamin with minerals Tablet 1 tab PO QAM RF: 0 enoxaparin 40 mg/0.4 mL Syringe 40 mg SUBCUT DAILY RF: 0 acetaminophen 500 mg tablet 1,000 mg PO Q8H RF: 0 oxycodone 5 mg tablet 5 mg PO Q4H PRN (Reason: Pain) RF: 0 sennosides-docusate sodium [Senokot-S] 8.6-50 mg Tablet 1 tab-cap PO QDL PRN (Reason: Constipation) RF: 0 bisacodyl 10 mg Suppository 10 mg WV DAILY PRN (Reason: Constipation) RF: 0 Fleet Enema 19-7 gram/118 mL Enema 133 ml WV DAILY PRN (Reason: Constipation) RF: 0 polyethylene glycol 3350 17 gram/dose Powder 17 g PO QDL PRN (Reason: Constipation) RF: 0 Discharge Orders: Discharge Order (Routine); Ordered 07/28/19 Ordered By: Anupam Jeronimo/Other Patient Handouts: Surgery Prevent DVT After Admission Data Admit Date/Time: 07/25/19 11:39 Attending Provider: Ashok Booth Admit Provider: Ashok Booth Primary Care Provider: Esteban Alcala Other Providers: [facility] ; Dylan Cabrera ; Hoa Edwards Other Interventions: Discharge Summary Assessment (RN) Last Done: 07/28/19 10:11 DC Date/Time DO NOT enter until pt leaves facility: 07/28/19 11:39
== END 2019-07-28 11:39 | DRG 470 ==
LOC: ASU 07:15 → 3E 11:39

== ENCOUNTER 2022-08-13 11:06 | Inpatient (IN) ==
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
[2022-08-13] MEDS ORDERED: SODIUM CHLORIDE 0.9% 500 ML IV SCH (12:00)
--- NOTE | 2022-08-13 12:24 | CT Scan Report ---
CT SCAN OF THE BRAIN WITHOUT IV CONTRAST CLINICAL HISTORY: Change in mental status. Delirium. COMPARISON STUDY: CT of the brain dated 07/29/2019. TECHNIQUE: Unenhanced axial CT scan of the brain is performed from the vertex to the skull base. A do se lowering technique was utilized adhering to the principles of ALARA. CT DOSE: 614.27 mGy.cm FINDINGS: Brain parenchyma: There is age-related involutional change noting mild subcortical and periventricula r microangiopathic disease. There is no hemorrhage, mass effect, or evidence of acute territorial isc hemia by CT criteria. Chronic lacunar infarcts are noted in the right basal ganglia. Whiteside-white matte r differentiation is preserved. No extra-axial fluid collection is seen. Ventricles, sulci, cisterns: Prominent secondary to involutional change. Intracranial vasculature: There is atherosclerotic calcification of the cavernous carotid and vertebr al arteries. Calvarium: Unremarkable. Sinuses and mastoids: The visualized paranasal sinuses are clear. The mastoid air cells are well pneu matized. Orbits: The bony orbits are grossly intact. IMPRESSION: There is no hemorrhage, mass effect, or evidence of acute territorial ischemia by CT valery alves. ACT 112: Negative or not required by law. Electronically signed by: Trent Maciel M.D. 08/13/2022 12:22 PM
--- NOTE | 2022-08-13 12:38 | XRay Report ---
XR chest 1V portable CLINICAL HISTORY: weakness TECHNIQUE: Single frontal radiograph of the chest was obtained. Comparison: Comparison is made to chest radiograph 07/29/2019 FINDINGS: No lines and tubes are seen. Cardiomegaly is noted. The lungs are clear. No evidence of pleural effus ion or pneumothorax. IMPRESSION: No acute chest disease. Cardiomegaly is noted. ACT 112: Negative or not required by law. Electronically signed by: Jose Juan Hernandez M.D. 08/13/2022 12:37 PM
[2022-08-13 12:42] LABS: Basophils # (auto) 0.05 K/uL (0-0.2); Basophils % (auto) 0.8 %; Eosinophils # (auto) 0.25 K/uL (0-0.50); Eosinophils % (auto) 3.8 %; Hematocrit (blood only) 42.1 % (42.0-52.0); Hemoglobin 14.3 g/dl (14.0-18.0); Immature Granulocytes # (auto) 0.02 K/uL (0.01-0.20); Immature Granulocytes % (auto) 0.3 %; Mean Corpuscular Hemoglobin 29.4 pg (25.0-34.0); Mean Corpuscular Volume 86.6 fL (80.0-100.0); Mean Platelet Volume 9.7 fL (9.4-12.4); Monocytes # (auto) 0.64 K/uL (0.11-0.59); Monocytes % (auto) 9.6 %; Neutrophils % (auto) 64.5 %; Platelet Count 239 K/uL (130-400); RDW Coefficient of Variation 13.8 % (11.5-14.5); RDW Standard Deviation 43.8 fL (36.4-46.3); Red Blood Count 4.86 M/uL (4.70-6.10); White Blood Count 6.66 K/ul (4.8-10.8)
[2022-08-13 13:01] LABS: Albumin Globulin Ratio 1.5 (0.9-2); BUN Creatinine Ratio 26.5 (10-20); Bilirubin,Total 0.5 mg/dl (0.2-1.0); Calcium 8.8 mg/dl (8.5-10.1); Creatinine Clr Calc Pharmacy 71.9 ml/min; Est GFR (African American) 92.3 ml/min; Est GFR (Non-African American) 79.7 ml/min; Globulin 2.6 gm/dl (2.5-4.0); Potassium 3.6 mmol/L (3.5-5.1); Total Protein 6.6 gm/dl (6.0-8.3)
[2022-08-13 13:16] LABS: Partial Thromboplastin Time 26.6 Seconds (21.0-31.0); Prothrombin Time 10.4 Seconds (9.0-12.0)
[2022-08-13 13:25] LABS: Appearance Urine Clear (Clear); Bilirubin Urine Negative (Negative); Blood Urine Negative (Negative); Color Urine Yellow; Glucose Urine UA Negative (Negative); Ketones Urine Negative (Negative); Leukocyte Esterase Urine Negative (Negative); Nitrite Urine Negative (Negative); Protein Urine Negative (Negative); Specific Gravity Urine 1.012 (1.000-1.030); Urobilinogen Urine Negative (Negative)
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
--- NOTE | 2022-08-13 15:37 | Communication Note ---
Date of Service: August 13, 2022 History and physical exam performed by me. History provided by patient's brother and [id number] due to patient's dementia. Notable for 87-year-old man with dementia who was brought in by family due to progression of symptoms and need for long-term placement. Patient has been having worsening of his dementia. Lives in his house and gets caregivers that come from 5 PM to 9 AM daily. Caregiver helps with food and some ADLs. Ambulates with a walker. According to family, mixes up his days and nights and in the past had been confused about finding somebody in the house. However, the 'person' the patient has been complaining about being in his house is his own reflection in the mirror. When family tries to convince him that there was no one else in the house, he gets agitated. Family reports that he has become too much for them to manage at home even with caregivers hence, presentation to the hospital with goal of long-term placement Patient is currently alert and oriented to person only, not oriented to place and time. Cooperative. Denies all complaints. On exam, General: Elderly man, no acute distress Eyes: PERRL, conjunctivae normal, not pale, anicteric sclerae, EOM intact bilaterally ENMT: External ear and nose normal, oropharynx normal Respiratory: Normal respiratory effort, no respiratory distress, lungs clear to auscultation, no crackles and no wheezes Cardiovascular: RRR S1 S2 Gastrointestinal (Abdomen): Abdomen is not distended, soft, non-tender to palpation, no guarding, no palpable hepatosplenomegaly, normal bowel sounds Musculoskeletal: Trace pedal edema Genitourinary: No CVA tenderness Neurologic: No focal weakness, +memory deficits. Easily confused. Follows simple commands Psychiatric: Alert and oriented to person only, cooperative Labs are essentially unremarkable. Progression of dementia. Delirium Brother Trenton Cooper is medical POA. Paperwork visualized Patient is also DNR based on living will provided by brother. Will do seroquel 12.5mg po HS prn agitation Melatonin HS Continue other home meds. CM c/s for placement PT/OT Reorient as needed Other plans as detailed by Cherelle Spencer PA-C
--- NOTE | 2022-08-13 16:22 | Electrocardiogram Report ---
Test Reason : Blood Pressure : / mmHG Vent. Rate : 064 BPM Atrial Rate : 064 BPM P-R Int : 208 ms QRS Dur : 162 ms QT Int : 456 ms P-R-T Axes : 057 057 023 degrees QTc Int : 470 ms Normal sinus rhythm Left bundle branch block Abnormal ECG When compared with ECG of 29-JUL-2019 14:23, No significant change was found Confirmed by Alex Resendiz ([id number]) on 08/13/2022 4:21:34 PM Referred By: REFERRED SELF Confirmed By:Prem Resendiz
[2022-08-13] MEDS ORDERED: POLYETHYLENE (MIRALAX) 17 GM PACK PO PRN (16:52)
[2022-08-13] MEDS ORDERED: ONDANSETRON INJ 2 MG/ML 2 ML VIAL IV PRN (16:52)
[2022-08-13] MEDS ORDERED: ACETAMINOPHEN 325 MG TAB PO PRN (16:52)
[2022-08-13] MEDS: ENOXAPARIN INJ 30 MG/0.3 ML SYR SQ SCH (18:02)
[2022-08-13] MEDS: MELATONIN 3 MG TAB PO SCH (20:12)
[2022-08-13] MEDS: DOCUSATE SODIUM 100 MG CAP PO SCH (20:13)
[2022-08-13] MEDS: carvediloL 12.5 MG TAB PO SCH (20:14)
[2022-08-14] MEDS: carvediloL 12.5 MG TAB PO SCH ×2 (07:16→18:25)
[2022-08-14 08:18] LABS: Hematocrit (blood only) 39.8 % (42.0-52.0); Hemoglobin 13.7 g/dl (14.0-18.0); Mean Corpuscular Hemoglobin 29.7 pg (25.0-34.0); Mean Corpuscular Hgb Conc 34.4 g/dL (32.0-36.0); Mean Corpuscular Volume 86.1 fL (80.0-100.0); Mean Platelet Volume 9.4 fL (9.4-12.4); Platelet Count 215 K/uL (130-400); RDW Standard Deviation 43.9 fL (36.4-46.3); Red Blood Count 4.62 M/uL (4.70-6.10)
[2022-08-14 08:34] LABS: BUN Creatinine Ratio 24.4 (10-20); Calcium 8.4 mg/dl (8.5-10.1); Creatinine Clr Calc Pharmacy 72.2 ml/min; Est GFR (African American) 92.8 ml/min; Est GFR (Non-African American) 80.1 ml/min; Potassium 3.7 mmol/L (3.5-5.1)
[2022-08-14] MEDS: lisinopril 2.5 MG TAB PO SCH (08:42)
[2022-08-14] MEDS: DOCUSATE SODIUM 100 MG CAP PO SCH ×2 (08:42→20:12)
[2022-08-14] MEDS: ASPIRIN 81 MG ECTAB PO SCH (08:42)
[2022-08-14] MEDS: CHOLECALCIFEROL 1,000 UNITS 25 MCG TAB PO SCH (08:43)
[2022-08-14] MEDS: FERROUS SULFATE 325 MG TAB PO SCH (08:43)
--- NOTE | 2022-08-14 15:30 | Hospitalist Progress Note ---
Date of Service August 14, 2022 Assessment & Plan (1) Delirium: (2) Dementia: Plan 87 y/o M with PMH dementia, dilated cardiomyopathy, nonobstructive CAD, HTN, HLD, chronic LBBB, BPH presented to ER for worsening congitive function over past year with increased delerium (1) Dementia: (2) Delirium: In ER patient oriented to person only. Labs unremarkable, UA negative. Negative SARS-CoV-2. CT head: No acute intracranial abnormality CXR: No acute infiltrate Family requesting long-term placement as patient becoming unsafe and more difficult to care for at home Monitor for delirium. Patient will need frequent reorientation Continue melatonin Start Seroquel 12.5 mg at bedtime as needed agitation PT/OT eval Case management for assistance with placement (3) Non-occlusive coronary artery disease: (4) Cardiomyopathy: History nonobstructive CAD. History of dilated cardiomyopathy with return to normal systolic function Continue aspirin, carvedilol, simvastatin (5) HTN (hypertension): Continue carvedilol, HCTZ (6) Chronic bundle branch block: Chronic LBBB DVT Prophylaxis: Lovenox SQ DNR/DNI - pt's brother and PHUONG Larry Cooper Follows with Dr Esteban Alcala for routine care Admission and Anticipated Discharge Date Admission Date: August 13, 2022 Subjective Patient seen and examined at bedside as a follow-up of worsening dementia. Patient was sitting up in bed, on room air, NAD, reports no pain or discomfort, is not oriented, reports no headache or dizziness or chest pain or palpitation. Per RN, patient ate fine, no new events overnight, no bowel movement so far. Physical Exam Physical Exam: GENERAL: Alert and awake. NAD, on RA. HEENT: No pallor, no icterus. Pupils equal, round and reactive to light. Oral mucosa moist. NECK: No JVD, no neck masses. HEART: S1 and S2 heard. Regular rate and rhythm. No murmur, no gallop. RESPIRATORY SYSTEM: Normal AP diameter. No accessory muscle use. No wheezing, no crackles. ABDOMEN: Soft, bowel sounds present, nontender, no distention. CENTRAL NERVOUS SYSTEM: No facial droop. Speech is clear. Obeys simple commands. Moves extremities. Confused. EXTREMITIES: No edema, no erythema seen. Results & Data Results & Data ([facility]) Vital Signs (Past 12 Hours) Vital Signs Temp Pulse Resp BP Pulse Ox O2 Del Method 08/14/22 14:55 36.8 C 62 16 145/71 H 96 Room Air 08/14/22 07:14 36.6 C 58 L 16 155/68 H 95 Room Air
[2022-08-14] MEDS: ENOXAPARIN INJ 30 MG/0.3 ML SYR SQ SCH (17:15)
[2022-08-14] MEDS ORDERED: OLANZapine 10 MG/2.1 ML SDV IM PRN (20:08)
[2022-08-14] MEDS ORDERED: OLANZapine 10 MG/2.1 ML SDV IM STA (20:08)
[2022-08-14] MEDS: MELATONIN 3 MG TAB PO SCH (20:12)
[2022-08-15] MEDS: lisinopril 2.5 MG TAB PO SCH (07:14)
[2022-08-15] MEDS: CHOLECALCIFEROL 1,000 UNITS 25 MCG TAB PO SCH (07:15)
[2022-08-15] MEDS: carvediloL 12.5 MG TAB PO SCH ×2 (07:16→18:34)
[2022-08-15] MEDS: ASPIRIN 81 MG ECTAB PO SCH (07:16)
[2022-08-15] MEDS: DOCUSATE SODIUM 100 MG CAP PO SCH ×2 (07:17→19:42)
[2022-08-15 07:31] LABS: Hematocrit (blood only) 41.4 % (42.0-52.0); Hemoglobin 14.1 g/dl (14.0-18.0); Mean Corpuscular Hemoglobin 29.4 pg (25.0-34.0); Mean Corpuscular Hgb Conc 34.1 g/dL (32.0-36.0); Mean Corpuscular Volume 86.4 fL (80.0-100.0); Mean Platelet Volume 9.7 fL (9.4-12.4); Platelet Count 215 K/uL (130-400); RDW Coefficient of Variation 13.9 % (11.5-14.5); Red Blood Count 4.79 M/uL (4.70-6.10); White Blood Count 6.65 K/ul (4.8-10.8)
[2022-08-15 08:11] LABS: BUN Creatinine Ratio 27.8 (10-20); Calcium 8.7 mg/dl (8.5-10.1); Creatinine Clr Calc Pharmacy 82.3 ml/min; Est GFR (African American) 97.9 ml/min; Est GFR (Non-African American) 84.5 ml/min; Magnesium 2.1 mg/dl (1.7-2.4); Phosphorus 3.3 mg/dl (2.5-4.9); Potassium 3.5 mmol/L (3.5-5.1)
--- NOTE | 2022-08-15 15:53 | Hospitalist Progress Note ---
Date of Service August 15, 2022 Assessment & Plan (1) Delirium: (2) Dementia: Plan 87 y/o M with PMH dementia, dilated cardiomyopathy, nonobstructive CAD, HTN, HLD, chronic LBBB, BPH presented to ER for worsening congitive function over past year with increased delerium (1) Dementia: (2) Delirium: In ER patient oriented to person only. Labs unremarkable, UA negative. Negative SARS-CoV-2. CT head: No acute intracranial abnormality CXR: No acute infiltrate Family requesting long-term placement as patient becoming unsafe and more difficult to care for at home Monitor for delirium. Patient will need frequent reorientation Continue melatonin Start Seroquel 12.5 mg at bedtime as needed agitation PT/OT eval Case management for assistance with placement (3) Non-occlusive coronary artery disease: (4) Cardiomyopathy: History nonobstructive CAD. History of dilated cardiomyopathy with return to normal systolic function Continue aspirin, carvedilol, simvastatin (5) HTN (hypertension): Continue carvedilol, HCTZ (6) Chronic bundle branch block: Chronic LBBB DVT Prophylaxis: Lovenox SQ DNR/DNI - pt's brother and PHUONG Larry Cooper Follows with Dr Esteban Alcala for routine care Admission and Anticipated Discharge Date Admission Date: August 13, 2022 Subjective Patient seen and examined at bedside as a follow-up of worsening dementia. Patient was sitting up in bed, on room air, NAD, reports no pain or discomfort, is not oriented, reports no headache or dizziness or chest pain or palpitation. Per RN, was agitated overnight and needed im zyprexa, pt ate ok. Physical Exam Physical Exam: GENERAL: Alert and awake. NAD, on RA. HEENT: No pallor, no icterus. Pupils equal, round and reactive to light. Oral mucosa moist. NECK: No JVD, no neck masses. HEART: S1 and S2 heard. Regular rate and rhythm. No murmur, no gallop. RESPIRATORY SYSTEM: Normal AP diameter. No accessory muscle use. No wheezing, no crackles. ABDOMEN: Soft, bowel sounds present, nontender, no distention. CENTRAL NERVOUS SYSTEM: No facial droop. Speech is clear. Obeys simple commands. Moves extremities. Confused. EXTREMITIES: No edema, no erythema seen. Results & Data Results & Data ([facility]) Vital Signs (Past 12 Hours) Vital Signs Temp Pulse Resp BP Pulse Ox O2 Del Method 08/15/22 15:26 36.6 C 57 L 16 113/66 94 Room Air 08/15/22 07:07 36.4 C L 66 18 168/75 H 97 Room Air
[2022-08-15] MEDS: ENOXAPARIN INJ 30 MG/0.3 ML SYR SQ SCH (17:13)
[2022-08-15] MEDS: QUEtiapine FUMARATE 25 MG TABLET PO PRN (19:42)
[2022-08-15] MEDS: MELATONIN 3 MG TAB PO SCH (19:42)
[2022-08-16] MEDS: hydroCHLOROthiazide 25 MG TAB PO SCH (07:56)
[2022-08-16] MEDS: DOCUSATE SODIUM 100 MG CAP PO SCH ×2 (07:56→20:19)
[2022-08-16] MEDS: lisinopril 2.5 MG TAB PO SCH (07:56)
[2022-08-16] MEDS: ASPIRIN 81 MG ECTAB PO SCH (07:56)
[2022-08-16] MEDS: FERROUS SULFATE 325 MG TAB PO SCH (07:56)
[2022-08-16] MEDS: CHOLECALCIFEROL 1,000 UNITS 25 MCG TAB PO SCH (07:57)
[2022-08-16] MEDS: carvediloL 12.5 MG TAB PO SCH ×2 (07:57→18:27)
--- NOTE | 2022-08-16 15:02 | Hospitalist Progress Note ---
Date of Service August 16, 2022 Assessment & Plan (1) Delirium: (2) Dementia: Plan 87 y/o M with PMH dementia, dilated cardiomyopathy, nonobstructive CAD, HTN, HLD, chronic LBBB, BPH presented to ER for worsening congitive function over past year with increased delerium (1) Dementia: (2) Delirium: In ER patient oriented to person only. Labs unremarkable, UA negative. Negative SARS-CoV-2. CT head: No acute intracranial abnormality CXR: No acute infiltrate Family requesting long-term placement as patient becoming unsafe and more difficult to care for at home Monitor for delirium. Patient will need frequent reorientation Continue melatonin Start Seroquel 12.5 mg at bedtime as needed agitation PT/OT eval Case management for assistance with placement (3) Non-occlusive coronary artery disease: (4) Cardiomyopathy: History nonobstructive CAD. History of dilated cardiomyopathy with return to normal systolic function Continue aspirin, carvedilol, simvastatin (5) HTN (hypertension): Continue carvedilol, HCTZ, increase lisinopril from 2.5 to 5 mg daily. uptitrate bp meds an needed. (6) Chronic bundle branch block: Chronic LBBB DVT Prophylaxis: Lovenox SQ DNR/DNI - pt's brother and Larry BACA Follows with Dr Esteban Alcala for routine care DC: awaiting placement. Admission and Anticipated Discharge Date Admission Date: August 13, 2022 Subjective Patient seen and examined at bedside as a follow-up of worsening dementia. Patient was sitting up in bed, on room air, NAD, reports no pain or discomfort, is not oriented, reports no headache or dizziness or chest pain or palpitation. Physical Exam Physical Exam: GENERAL: Alert and awake. NAD, on RA. HEENT: No pallor, no icterus. Pupils equal, round and reactive to light. Oral mucosa moist. NECK: No JVD, no neck masses. HEART: S1 and S2 heard. Regular rate and rhythm. No murmur, no gallop. RESPIRATORY SYSTEM: Normal AP diameter. No accessory muscle use. No wheezing, no crackles. ABDOMEN: Soft, bowel sounds present, nontender, no distention. CENTRAL NERVOUS SYSTEM: No facial droop. Speech is clear. Obeys simple commands. Moves extremities. Confused. EXTREMITIES: No edema, no erythema seen. Results & Data Results & Data ([facility]) Vital Signs (Past 12 Hours) Vital Signs Temp Pulse Resp BP Pulse Ox O2 Del Method 08/16/22 14:43 36.5 C 74 16 174/78 H 98 Room Air 08/16/22 07:32 36.4 C L 60 16 154/73 H 99 Room Air
[2022-08-16] MEDS: ENOXAPARIN INJ 30 MG/0.3 ML SYR SQ SCH (16:47)
[2022-08-16] MEDS: MELATONIN 3 MG TAB PO SCH (20:18)
[2022-08-16] MEDS: QUEtiapine FUMARATE 25 MG TABLET PO PRN (20:19)
[2022-08-17] MEDS: carvediloL 12.5 MG TAB PO SCH ×2 (07:19→18:04)
[2022-08-17] MEDS: DOCUSATE SODIUM 100 MG CAP PO SCH ×2 (08:17→20:04)
[2022-08-17] MEDS: lisinopril 5 MG TAB PO SCH (08:17)
[2022-08-17] MEDS: CHOLECALCIFEROL 1,000 UNITS 25 MCG TAB PO SCH (08:17)
[2022-08-17] MEDS: ASPIRIN 81 MG ECTAB PO SCH (08:17)
--- NOTE | 2022-08-17 16:05 | Hospitalist Progress Note ---
Date of Service August 17, 2022 Assessment & Plan (1) Delirium: (2) Dementia: Plan 87 y/o M with PMH dementia, dilated cardiomyopathy, nonobstructive CAD, HTN, HLD, chronic LBBB, BPH presented to ER for worsening congitive function over past year with increased delerium (1) Dementia: (2) Delirium: In ER patient oriented to person only. Labs unremarkable, UA negative. Negative SARS-CoV-2. CT head: No acute intracranial abnormality CXR: No acute infiltrate Family requesting long-term placement as patient becoming unsafe and more difficult to care for at home Monitor for delirium. Patient will need frequent reorientation Continue melatonin Start Seroquel 12.5 mg at bedtime as needed agitation PT/OT eval Case management for assistance with placement (3) Non-occlusive coronary artery disease: (4) Cardiomyopathy: History nonobstructive CAD. History of dilated cardiomyopathy with return to normal systolic function Continue aspirin, carvedilol, simvastatin (5) HTN (hypertension): Continue carvedilol, HCTZ, increase lisinopril from 2.5 to 5 mg daily. uptitrate bp meds an needed. (6) Chronic bundle branch block: Chronic LBBB DVT Prophylaxis: Lovenox SQ DNR/DNI - pt's brother and Larry BACA Follows with Dr Esteban Alcala for routine care DC: awaiting placement. Admission and Anticipated Discharge Date Admission Date: August 13, 2022 Subjective Patient seen and examined at bedside as a follow-up of worsening dementia. Patient was sitting up in bed, on room air, NAD, reports no pain or discomfort, is not oriented, reports no headache or dizziness or chest pain or palpitation. Physical Exam Physical Exam: GENERAL: Alert and awake. NAD, on RA. HEENT: No pallor, no icterus. Pupils equal, round and reactive to light. Oral mucosa moist. NECK: No JVD, no neck masses. HEART: S1 and S2 heard. Regular rate and rhythm. No murmur, no gallop. RESPIRATORY SYSTEM: Normal AP diameter. No accessory muscle use. No wheezing, no crackles. ABDOMEN: Soft, bowel sounds present, nontender, no distention. CENTRAL NERVOUS SYSTEM: No facial droop. Speech is clear. Obeys simple commands. Moves extremities. Confused. EXTREMITIES: No edema, no erythema seen. Results & Data Results & Data ([place]) Vital Signs (Past 12 Hours) Vital Signs Temp Pulse Resp BP Pulse Ox O2 Del Method 08/17/22 14:25 36.9 C 65 18 116/63 96 Room Air 08/17/22 06:49 36.6 C 65 16 153/76 H 97 Room Air
[2022-08-17] MEDS: ENOXAPARIN INJ 30 MG/0.3 ML SYR SQ SCH (18:04)
[2022-08-17] MEDS: QUEtiapine FUMARATE 25 MG TABLET PO PRN (20:04)
[2022-08-17] MEDS: MELATONIN 3 MG TAB PO SCH (20:04)
[2022-08-18] MEDS: carvediloL 12.5 MG TAB PO SCH ×2 (08:00→18:21)
[2022-08-18] MEDS: DOCUSATE SODIUM 100 MG CAP PO SCH ×2 (08:01→20:10)
[2022-08-18] MEDS: ASPIRIN 81 MG ECTAB PO SCH (08:01)
[2022-08-18] MEDS: FERROUS SULFATE 325 MG TAB PO SCH (08:01)
[2022-08-18] MEDS: CHOLECALCIFEROL 1,000 UNITS 25 MCG TAB PO SCH (08:01)
[2022-08-18] MEDS: lisinopril 5 MG TAB PO SCH (08:01)
--- NOTE | 2022-08-18 10:31 | Hospitalist Progress Note ---
Date of Service August 18, 2022 Assessment & Plan (1) Delirium: (2) Dementia: Plan 87 y/o M with PMH dementia, dilated cardiomyopathy, nonobstructive CAD, HTN, HLD, chronic LBBB, BPH presented to ER for worsening cognitive function over past year with increased delirium (1) Dementia: (2) Delirium: In ER patient oriented to person only. Labs unremarkable, UA negative. Negative SARS-CoV-2. CT head: No acute intracranial abnormality CXR: No acute infiltrate Family requesting long-term placement as patient becoming unsafe and more difficult to care for at home Monitor for delirium. Patient will need frequent reorientation Continue melatonin Start Seroquel 12.5 mg at bedtime as needed agitation PT/OT eval Case management for assistance with placement (3) Non-occlusive coronary artery disease: (4) Cardiomyopathy: History nonobstructive CAD. History of dilated cardiomyopathy with return to normal systolic function Continue aspirin, carvedilol, simvastatin (5) HTN (hypertension): Continue carvedilol, HCTZ, increase lisinopril from 2.5 to 5 mg daily. uptitrate bp meds an needed. (6) Chronic bundle branch block: Chronic LBBB DVT Prophylaxis: Lovenox SQ DNR/DNI - pt's brother and Larry BACA Follows with Dr Esteban Alcala for routine care DC: awaiting placement. Admission and Anticipated Discharge Date Admission Date: August 13, 2022 Subjective Patient seen in follow-up of worsening dementia. Patient is sitting up in chair, on room air, NAD reports no pain or discomfort, no fever, chills, no chest pain, shortness of breath Friend at the bedside visiting Review of Systems Review of Systems: All systems reviewed & are unremarkable except as noted in Subjective Physical Exam Physical Exam: GENERAL: Alert and awake. NAD, on RA. HEENT: No pallor, no icterus. Pupils equal, round and reactive to light. Oral mucosa moist. NECK: No JVD, no neck masses. HEART: S1 and S2 heard. Regular rate and rhythm. No murmur, no gallop. RESPIRATORY: Normal AP diameter. No accessory muscle use. No wheezing, no crackles. ABDOMEN: Soft, bowel sounds present, nontender, no distention. NEURO: No facial droop. Speech is clear. Obeys simple commands. Moves extremities. Able to answer simple questions. confused EXTREMITIES: No edema, no erythema seen. Results & Data Results & Data ([facility]) Vital Signs (Past 12 Hours) Vital Signs Temp Pulse Resp BP Pulse Ox O2 Del Method O2 Flow Rate 08/18/22 09:27 Nasal Cannula 3 08/18/22 08:01 61 08/18/22 07:58 36.9 C 57 L 18 165/82 H 97 Room Air Medications Administered Current Inpatient Medications Acetaminophen (Acetaminophen 325 Mg Tab) 650 mg PO Q4H PRN PRN Reason: Pain or Fever Stop: 09/12/22 16:51 Aspirin (Aspirin 81 Mg Ectab) 81 mg PO DAILY [facility] Stop: 09/13/22 08:59 Last Admin: 08/18/22 08:01 Dose: 81 mg Carvedilol (Carvedilol 12.5 Mg Tab) 12.5 mg PO Q12H [facility] Stop: 09/12/22 18:59 Last Admin: 08/18/22 08:00 Dose: 12.5 mg Docusate Sodium (Docusate Sodium 100 Mg Cap) 100 mg PO BID [facility] Stop: 09/12/22 20:59 Last Admin: 08/18/22 08:01 Dose: 100 mg Enoxaparin Sodium (Enoxaparin Inj 30 Mg/0.3 Ml Syr) 30 mg SQ Q24H [facility] Stop: 09/12/22 17:29 Last Admin: 08/17/22 18:04 Dose: 30 mg Ferrous Sulfate (Ferrous Sulfate 325 Mg Tab) 325 mg PO Q48H [facility] Stop: 09/13/22 08:59 Last Admin: 08/18/22 08:01 Dose: 325 mg Hydrochlorothiazide (Hydrochlorothiazide 25 Mg Tab) 12.5 mg PO MoTh [facility] Stop: 09/15/22 08:59 Last Admin: 08/16/22 07:56 Dose: 12.5 mg Lisinopril (Lisinopril 5 Mg Tab) 5 mg PO DAILY [facility] Stop: 09/16/22 08:59 Last Admin: 08/18/22 08:01 Dose: 5 mg Melatonin (Melatonin 3 Mg Tab) 9 mg PO HS [facility] Stop: 09/12/22 20:59 Last Admin: 08/17/22 20:04 Dose: 9 mg Olanzapine (Olanzapine 10 Mg/2.1 Ml Sdv) 2.5 mg IM Q4H PRN PRN Reason: Anxiety/Agitation Stop: 09/13/22 20:07 Ondansetron HCl (Ondansetron Inj 2 Mg/Ml 2 Ml Vial) 4 mg IV Q6H PRN PRN Reason: Nausea Stop: 09/12/22 16:51 Polyethylene Glycol (Polyethylene (Miralax) 17 Gm Pack) 17 gm PO DAILY PRN PRN Reason: Constipation Stop: 09/12/22 16:51 Quetiapine Fumarate (Quetiapine Fumarate 25 Mg Tablet) 12.5 mg PO HS PRN PRN Reason: Agitation Stop: 09/12/22 16:51 Last Admin: 08/17/22 20:04 Dose: 12.5 mg Vitamin D (Cholecalciferol 1,000 Units 25 Mcg Tab) 2,000 units PO [facility] Stop: 09/13/22 08:59 Last Admin: 08/18/22 08:01 Dose: 2,000 units
[2022-08-18] MEDS: ENOXAPARIN INJ 30 MG/0.3 ML SYR SQ SCH (17:19)
[2022-08-18] MEDS: MELATONIN 3 MG TAB PO SCH (20:10)
[2022-08-18] MEDS: QUEtiapine FUMARATE 25 MG TABLET PO PRN (20:10)
[2022-08-19] MEDS: lisinopril 5 MG TAB PO SCH (08:21)
[2022-08-19] MEDS: carvediloL 12.5 MG TAB PO SCH ×2 (08:21→18:05)
[2022-08-19] MEDS: CHOLECALCIFEROL 1,000 UNITS 25 MCG TAB PO SCH (08:21)
[2022-08-19] MEDS: hydroCHLOROthiazide 25 MG TAB PO SCH (08:21)
[2022-08-19] MEDS: ASPIRIN 81 MG ECTAB PO SCH (08:21)
[2022-08-19] MEDS: DOCUSATE SODIUM 100 MG CAP PO SCH ×2 (08:21→20:11)
--- NOTE | 2022-08-19 08:42 | Hospitalist Progress Note ---
Date of Service August 19, 2022 Assessment & Plan (1) Delirium: (2) Dementia: Plan 87 y/o M with PMH dementia, dilated cardiomyopathy, nonobstructive CAD, HTN, HLD, chronic LBBB, BPH presented to ER for worsening cognitive function over past year with increased delirium (1) Dementia: (2) Delirium: In ER patient oriented to person only. Labs unremarkable, UA negative. Negative SARS-CoV-2. CT head: No acute intracranial abnormality CXR: No acute infiltrate Family requesting long-term placement as patient becoming unsafe and more difficult to care for at home Monitor for delirium. Patient will need frequent reorientation Continue melatonin Start Seroquel 12.5 mg at bedtime as needed agitation PT/OT eval Case management for assistance with placement (3) Non-occlusive coronary artery disease: (4) Cardiomyopathy: History nonobstructive CAD. History of dilated cardiomyopathy with return to normal systolic function Continue aspirin, carvedilol, simvastatin (5) HTN (hypertension): Continue carvedilol, HCTZ, increase lisinopril from 2.5 to 5 mg daily. uptitrate bp meds as needed. (6) Chronic bundle branch block: Chronic LBBB DVT Prophylaxis: Lovenox SQ DNR/DNI - pt's brother and PHUONG Larry Cooper Follows with Dr Esteban Alcala for routine care DC: awaiting placement. Admission and Anticipated Discharge Date Admission Date: August 13, 2022 Subjective Patient seen in follow-up of worsening dementia. Patient is walking in hallways w/ friend/ outpt caregiver He is on room air, in NAD reports no pain or discomfort, no fever, chills, no chest pain, shortness of breath Review of Systems Review of Systems: All systems reviewed & are unremarkable except as noted in Subjective Physical Exam Physical Exam: GENERAL: Alert and awake. NAD, on RA. HEENT: No pallor, no icterus. Pupils equal, round and reactive to light. Oral mucosa moist. NECK: No JVD, no neck masses. HEART: S1 and S2 heard. Regular rate and rhythm. No murmur, no gallop. RESPIRATORY: Normal AP diameter. No accessory muscle use. No wheezing, no crackles. ABDOMEN: Soft, bowel sounds present, nontender, no distention. NEURO: No facial droop. Speech is clear. Obeys simple commands. Moves extremities. Able to answer simple questions. EXTREMITIES: No edema, no erythema seen. Results & Data Results & Data ([facility]) Vital Signs (Past 12 Hours) Vital Signs Temp Pulse Resp BP Pulse Ox O2 Del Method 08/19/22 07:00 36.9 C 65 14 133/65 97 Room Air Medications Administered Current Inpatient Medications Acetaminophen (Acetaminophen 325 Mg Tab) 650 mg PO Q4H PRN PRN Reason: Pain or Fever Stop: 09/12/22 16:51 Aspirin (Aspirin 81 Mg Ectab) 81 mg PO DAILY [facility] Stop: 09/13/22 08:59 Last Admin: 08/19/22 08:21 Dose: 81 mg Carvedilol (Carvedilol 12.5 Mg Tab) 12.5 mg PO Q12H [facility] Stop: 09/12/22 18:59 Last Admin: 08/19/22 08:21 Dose: 12.5 mg Docusate Sodium (Docusate Sodium 100 Mg Cap) 100 mg PO BID [facility] Stop: 09/12/22 20:59 Last Admin: 08/19/22 08:21 Dose: 100 mg Enoxaparin Sodium (Enoxaparin Inj 30 Mg/0.3 Ml Syr) 30 mg SQ Q24H [facility] Stop: 09/12/22 17:29 Last Admin: 08/18/22 17:19 Dose: 30 mg Ferrous Sulfate (Ferrous Sulfate 325 Mg Tab) 325 mg PO Q48H [facility] Stop: 09/13/22 08:59 Last Admin: 08/18/22 08:01 Dose: 325 mg Hydrochlorothiazide (Hydrochlorothiazide 25 Mg Tab) 12.5 mg PO MoTh [facility] Stop: 09/15/22 08:59 Last Admin: 08/19/22 08:21 Dose: 12.5 mg Lisinopril (Lisinopril 5 Mg Tab) 5 mg PO DAILY [facility] Stop: 09/16/22 08:59 Last Admin: 08/19/22 08:21 Dose: 5 mg Melatonin (Melatonin 3 Mg Tab) 9 mg PO HS [facility] Stop: 09/12/22 20:59 Last Admin: 08/18/22 20:10 Dose: 9 mg Olanzapine (Olanzapine 10 Mg/2.1 Ml Sdv) 2.5 mg IM Q4H PRN PRN Reason: Anxiety/Agitation Stop: 09/13/22 20:07 Ondansetron HCl (Ondansetron Inj 2 Mg/Ml 2 Ml Vial) 4 mg IV Q6H PRN PRN Reason: Nausea Stop: 09/12/22 16:51 Polyethylene Glycol (Polyethylene (Miralax) 17 Gm Pack) 17 gm PO DAILY PRN PRN Reason: Constipation Stop: 09/12/22 16:51 Quetiapine Fumarate (Quetiapine Fumarate 25 Mg Tablet) 12.5 mg PO HS PRN PRN Reason: Agitation Stop: 09/12/22 16:51 Last Admin: 08/18/22 20:10 Dose: 12.5 mg Vitamin D (Cholecalciferol 1,000 Units 25 Mcg Tab) [facility] Stop: 09/13/22 08:59 Last Admin: 08/19/22 08:21 Dose: 2,000 units
[2022-08-19] MEDS: ENOXAPARIN INJ 30 MG/0.3 ML SYR SQ SCH (17:28)
[2022-08-19] MEDS: MELATONIN 3 MG TAB PO SCH (20:11)
[2022-08-19] MEDS: QUEtiapine FUMARATE 25 MG TABLET PO PRN (20:11)
[2022-08-20] MEDS: carvediloL 12.5 MG TAB PO SCH ×2 (06:11→18:09)
[2022-08-20] MEDS: DOCUSATE SODIUM 100 MG CAP PO SCH ×2 (08:31→20:21)
[2022-08-20] MEDS: ASPIRIN 81 MG ECTAB PO SCH (08:31)
[2022-08-20] MEDS: CHOLECALCIFEROL 1,000 UNITS 25 MCG TAB PO SCH (08:31)
[2022-08-20] MEDS: FERROUS SULFATE 325 MG TAB PO SCH (08:32)
[2022-08-20] MEDS: lisinopril 5 MG TAB PO SCH (08:32)
--- NOTE | 2022-08-20 09:52 | Hospitalist Progress Note ---
Date of Service August 20, 2022 Assessment & Plan (1) Delirium: (2) Dementia: Plan 87 y/o M with PMH dementia, dilated cardiomyopathy, nonobstructive CAD, HTN, HLD, chronic LBBB, BPH presented to ER for worsening cognitive function over past year with increased delirium (1) Dementia: (2) Delirium: In ER patient oriented to person only. Labs unremarkable, UA negative. Negative SARS-CoV-2. CT head: No acute intracranial abnormality CXR: No acute infiltrate Family requesting long-term placement as patient becoming unsafe and more difficult to care for at home Monitor for delirium. Patient will need frequent reorientation Continue melatonin Start Seroquel 12.5 mg at bedtime as needed agitation PT/OT eval Case management for assistance with placement (3) Non-occlusive coronary artery disease: (4) Cardiomyopathy: History nonobstructive CAD. History of dilated cardiomyopathy with return to normal systolic function Continue aspirin, carvedilol, simvastatin (5) HTN (hypertension): Continue carvedilol, HCTZ, increase lisinopril from 2.5 to 5 mg daily. uptitrate bp meds as needed. (6) Chronic bundle branch block: Chronic LBBB DVT Prophylaxis: Lovenox SQ DNR/DNI - pt's brother and POAMadiLarry Kenneth Follows with Dr Esteban Alcala for routine care DC: awaiting placement. Admission and Anticipated Discharge Date Admission Date: August 13, 2022 Subjective Patient seen in follow-up of worsening dementia. Patient is sitting in a chair, putting together puzzles w/ friend/ outpt caregiver and her children He is on room air, in NAD reports no pain or discomfort, no fever, chills, no chest pain, shortness of breath Review of Systems Review of Systems: All systems reviewed & are unremarkable except as noted in Subjective Physical Exam Physical Exam: GENERAL: Alert and awake. NAD, on RA. HEENT: No pallor, no icterus. Pupils equal, round and reactive to light. Oral mucosa moist. NECK: No JVD, no neck masses. HEART: S1 and S2 heard. Regular rate and rhythm. No murmur, no gallop. RESPIRATORY: Normal AP diameter. No accessory muscle use. No wheezing, no crackles. ABDOMEN: Soft, bowel sounds present, nontender, no distention. NEURO: No facial droop. Speech is clear. Obeys simple commands. Moves extremities. Able to answer simple questions. EXTREMITIES: No edema, no erythema seen. Results & Data Results & Data ([facility]) Vital Signs (Past 12 Hours) Vital Signs Temp Pulse Resp BP Pulse Ox O2 Del Method 08/20/22 07:35 36.4 C L 66 16 162/54 H 96 Room Air 08/20/22 06:14 76 159/78 H Medications Administered Current Inpatient Medications Acetaminophen (Acetaminophen 325 Mg Tab) 650 mg PO Q4H PRN PRN Reason: Pain or Fever Stop: 09/12/22 16:51 Aspirin (Aspirin 81 Mg Ectab) 81 mg PO DAILY [facility] Stop: 09/13/22 08:59 Last Admin: 08/20/22 08:31 Dose: 81 mg Carvedilol (Carvedilol 12.5 Mg Tab) 12.5 mg PO Q12H [facility] Stop: 09/12/22 18:59 Last Admin: 08/20/22 06:11 Dose: 12.5 mg Docusate Sodium (Docusate Sodium 100 Mg Cap) 100 mg PO BID [facility] Stop: 09/12/22 20:59 Last Admin: 08/20/22 08:31 Dose: 100 mg Enoxaparin Sodium (Enoxaparin Inj 30 Mg/0.3 Ml Syr) 30 mg SQ Q24H [facility] Stop: 09/12/22 17:29 Last Admin: 08/19/22 17:28 Dose: 30 mg Ferrous Sulfate (Ferrous Sulfate 325 Mg Tab) 325 mg PO Q48H [facility] Stop: 09/13/22 08:59 Last Admin: 08/20/22 08:32 Dose: 325 mg Hydrochlorothiazide (Hydrochlorothiazide 25 Mg Tab) 12.5 mg PO MoTh [facility] Stop: 09/15/22 08:59 Last Admin: 08/19/22 08:21 Dose: 12.5 mg Lisinopril (Lisinopril 5 Mg Tab) 5 mg PO DAILY [facility] Stop: 09/16/22 08:59 Last Admin: 08/20/22 08:32 Dose: 5 mg Melatonin (Melatonin 3 Mg Tab) 9 mg PO HS [facility] Stop: 09/12/22 20:59 Last Admin: 08/19/22 20:11 Dose: 9 mg Olanzapine (Olanzapine 10 Mg/2.1 Ml Sdv) 2.5 mg IM Q4H PRN PRN Reason: Anxiety/Agitation Stop: 09/13/22 20:07 Ondansetron HCl (Ondansetron Inj 2 Mg/Ml 2 Ml Vial) 4 mg IV Q6H PRN PRN Reason: Nausea Stop: 09/12/22 16:51 Polyethylene Glycol (Polyethylene (Miralax) 17 Gm Pack) 17 gm PO DAILY PRN PRN Reason: Constipation Stop: 09/12/22 16:51 Quetiapine Fumarate (Quetiapine Fumarate 25 Mg Tablet) 12.5 mg PO HS PRN PRN Reason: Agitation Stop: 09/12/22 16:51 Last Admin: 08/19/22 20:11 Dose: 12.5 mg Vitamin D (Cholecalciferol 1,000 Units 25 Mcg Tab) 2,000 units PO [facility] Stop: 09/13/22 08:59 Last Admin: 08/20/22 08:31 Dose: 2,000 units
[2022-08-20] MEDS: ENOXAPARIN INJ 30 MG/0.3 ML SYR SQ SCH (18:10)
[2022-08-20] MEDS: MELATONIN 3 MG TAB PO SCH (20:27)
[2022-08-20] MEDS: QUEtiapine FUMARATE 25 MG TABLET PO PRN (20:28)
[2022-08-21] MEDS: carvediloL 12.5 MG TAB PO SCH ×2 (06:08→18:18)
[2022-08-21] MEDS: lisinopril 5 MG TAB PO SCH (08:47)
[2022-08-21] MEDS: ASPIRIN 81 MG ECTAB PO SCH (08:47)
[2022-08-21] MEDS: CHOLECALCIFEROL 1,000 UNITS 25 MCG TAB PO SCH (08:48)
[2022-08-21] MEDS: DOCUSATE SODIUM 100 MG CAP PO SCH ×2 (08:50→20:26)
--- NOTE | 2022-08-21 14:47 | Hospitalist Progress Note ---
Date of Service August 21, 2022 Assessment & Plan (1) Delirium: (2) Dementia: Plan 87 y/o M with PMH dementia, dilated cardiomyopathy, nonobstructive CAD, HTN, HLD, chronic LBBB, BPH presented to ER for worsening cognitive function over past year with increased delirium (1) Dementia: (2) Delirium: In ER patient oriented to person only. Labs unremarkable, UA negative. Negative SARS-CoV-2. CT head: No acute intracranial abnormality CXR: No acute infiltrate Family requesting long-term placement as patient becoming unsafe and more difficult to care for at home Monitor for delirium. Patient will need frequent reorientation Continue melatonin Start Seroquel 12.5 mg at bedtime as needed agitation PT/OT eval Case management for assistance with placement (3) Non-occlusive coronary artery disease: (4) Cardiomyopathy: History nonobstructive CAD. History of dilated cardiomyopathy with return to normal systolic function Continue aspirin, carvedilol, simvastatin (5) HTN (hypertension): Continue carvedilol, HCTZ, increase lisinopril from 2.5 to 5 mg daily. uptitrate bp meds as needed. (6) Chronic bundle branch block: Chronic LBBB DVT Prophylaxis: Lovenox SQ DNR/DNI - pt's brother and Larry BACA Follows with Dr Esteban Alcala for routine care DC: awaiting placement. Admission and Anticipated Discharge Date Admission Date: August 13, 2022 Subjective Patient seen in follow-up of worsening dementia. Patient in room, being assisted to the bathroom He is on room air, in NAD reports no pain or discomfort, no fever, chills, no chest pain, shortness of breath Review of Systems Review of Systems: All systems reviewed & are unremarkable except as noted in Subjective Physical Exam Physical Exam: GENERAL: Alert and awake. NAD, on RA. HEENT: No pallor, no icterus. Pupils equal, round and reactive to light. Oral mucosa moist. NECK: No JVD, no neck masses. HEART: S1 and S2 heard. Regular rate and rhythm. No murmur, no gallop. RESPIRATORY: Normal AP diameter. No accessory muscle use. No wheezing, no crackles. ABDOMEN: Soft, bowel sounds present, nontender, no distention. NEURO: No facial droop. Speech is clear. Obeys simple commands. Moves extremities. Able to answer simple questions. EXTREMITIES: No edema, no erythema seen. Results & Data Results & Data ([facility]) Vital Signs (Past 12 Hours) Vital Signs Temp Pulse Resp BP Pulse Ox O2 Del Method 08/21/22 08:46 138/68 08/21/22 07:48 36.3 C L 60 16 148/71 H 92 Room Air 08/21/22 06:05 63 153/73 H Medications Administered Current Inpatient Medications Acetaminophen (Acetaminophen 325 Mg Tab) 650 mg PO Q4H PRN PRN Reason: Pain or Fever Stop: 09/12/22 16:51 Aspirin (Aspirin 81 Mg Ectab) 81 mg PO DAILY [facility] Stop: 09/13/22 08:59 Last Admin: 08/21/22 08:47 Dose: 81 mg Carvedilol (Carvedilol 12.5 Mg Tab) 12.5 mg PO Q12H [facility] Stop: 09/12/22 18:59 Last Admin: 08/21/22 06:08 Dose: 12.5 mg Docusate Sodium (Docusate Sodium 100 Mg Cap) 100 mg PO BID [facility] Stop: 09/12/22 20:59 Last Admin: 08/21/22 08:50 Dose: 100 mg Enoxaparin Sodium (Enoxaparin Inj 30 Mg/0.3 Ml Syr) 30 mg SQ Q24H [facility] Stop: 09/12/22 17:29 Last Admin: 08/20/22 18:10 Dose: 30 mg Ferrous Sulfate (Ferrous Sulfate 325 Mg Tab) 325 mg PO Q48H [facility] Stop: 09/13/22 08:59 Last Admin: 08/20/22 08:32 Dose: 325 mg Hydrochlorothiazide (Hydrochlorothiazide 25 Mg Tab) 12.5 mg PO MoTh [facility] Stop: 09/15/22 08:59 Last Admin: 08/19/22 08:21 Dose: 12.5 mg Lisinopril (Lisinopril 5 Mg Tab) 5 mg PO DAILY [facility] Stop: 09/16/22 08:59 Last Admin: 08/21/22 08:47 Dose: 5 mg Melatonin (Melatonin 3 Mg Tab) 9 mg PO HS [facility] Stop: 09/12/22 20:59 Last Admin: 08/20/22 20:27 Dose: 9 mg Olanzapine (Olanzapine 10 Mg/2.1 Ml Sdv) 2.5 mg IM Q4H PRN PRN Reason: Anxiety/Agitation Stop: 09/13/22 20:07 Ondansetron HCl (Ondansetron Inj 2 Mg/Ml 2 Ml Vial) 4 mg IV Q6H PRN PRN Reason: Nausea Stop: 09/12/22 16:51 Polyethylene Glycol (Polyethylene (Miralax) 17 Gm Pack) 17 gm PO DAILY PRN PRN Reason: Constipation Stop: 09/12/22 16:51 Quetiapine Fumarate (Quetiapine Fumarate 25 Mg Tablet) 12.5 mg PO HS PRN PRN Reason: Agitation Stop: 09/12/22 16:51 Last Admin: 08/20/22 20:28 Dose: 12.5 mg Vitamin D (Cholecalciferol 1,000 Units 25 Mcg Tab) 2,000 units PO [facility] Stop: 09/13/22 08:59 Last Admin: 08/21/22 08:48 Dose: 2,000 units
[2022-08-21] MEDS: ENOXAPARIN INJ 30 MG/0.3 ML SYR SQ SCH (18:18)
[2022-08-21] MEDS: MELATONIN 3 MG TAB PO SCH (20:25)
[2022-08-21] MEDS: QUEtiapine FUMARATE 25 MG TABLET PO PRN (20:26)
[2022-08-22] MEDS: carvediloL 12.5 MG TAB PO SCH ×2 (06:25→18:23)
[2022-08-22] MEDS: ASPIRIN 81 MG ECTAB PO SCH (08:59)
[2022-08-22] MEDS: lisinopril 5 MG TAB PO SCH (08:59)
[2022-08-22] MEDS: FERROUS SULFATE 325 MG TAB PO SCH (08:59)
[2022-08-22] MEDS: DOCUSATE SODIUM 100 MG CAP PO SCH ×2 (08:59→20:30)
[2022-08-22] MEDS: CHOLECALCIFEROL 1,000 UNITS 25 MCG TAB PO SCH (09:00)
--- NOTE | 2022-08-22 12:50 | Hospitalist Progress Note ---
Date of Service August 22, 2022 Assessment & Plan (1) Delirium: (2) Dementia: Plan 87 y/o M with PMH dementia, dilated cardiomyopathy, nonobstructive CAD, HTN, HLD, chronic LBBB, BPH presented to ER for worsening cognitive function over past year with increased delirium (1) Dementia: (2) Delirium: In ER patient oriented to person only. Labs unremarkable, UA negative. Negative SARS-CoV-2. CT head: No acute intracranial abnormality CXR: No acute infiltrate Family requesting long-term placement as patient becoming unsafe and more difficult to care for at home Monitor for delirium. Patient will need frequent reorientation Continue melatonin Start Seroquel 12.5 mg at bedtime as needed agitation PT/OT eval Case management for assistance with placement (3) Non-occlusive coronary artery disease: (4) Cardiomyopathy: History nonobstructive CAD. History of dilated cardiomyopathy with return to normal systolic function Continue aspirin, carvedilol, simvastatin (5) HTN (hypertension): Continue carvedilol, HCTZ, increase lisinopril from 2.5 to 5 mg daily. uptitrate bp meds as needed. (6) Chronic bundle branch block: Chronic LBBB DVT Prophylaxis: Lovenox SQ DNR/DNI - pt's brother and Larry BACA Follows with Dr Esteban Alcala for routine care DC: awaiting placement. Admission and Anticipated Discharge Date Admission Date: August 13, 2022 Subjective Patient seen in follow-up of worsening dementia. Patient in room, resting in bed in NAD He is breathing comfortably on room air reports no pain or discomfort, no fever, chills, no chest pain, shortness of breath Review of Systems Review of Systems: All systems reviewed & are unremarkable except as noted in Subjective Physical Exam Physical Exam: GENERAL: Alert and awake. NAD, on RA. HEENT: No pallor, no icterus. Pupils equal, round and reactive to light. Oral mucosa moist. NECK: No JVD, no neck masses. HEART: S1 and S2 heard. Regular rate and rhythm. No murmur, no gallop. RESPIRATORY: Normal AP diameter. No accessory muscle use. No wheezing, no crackles. ABDOMEN: Soft, bowel sounds present, nontender, no distention. NEURO: No facial droop. Speech is clear. Obeys simple commands. Moves extremities. Able to answer simple questions. EXTREMITIES: No edema, no erythema seen. Results & Data Results & Data ([facility]) Vital Signs (Past 12 Hours) Vital Signs Temp Pulse Resp BP Pulse Ox O2 Del Method 08/22/22 08:57 61 115/64 08/22/22 07:40 36.8 C 64 16 144/68 H 95 Room Air 08/22/22 06:23 61 142/61 H Medications Administered Current Inpatient Medications Acetaminophen (Acetaminophen 325 Mg Tab) 650 mg PO Q4H PRN PRN Reason: Pain or Fever Stop: 09/12/22 16:51 Aspirin (Aspirin 81 Mg Ectab) 81 mg PO DAILY [facility] Stop: 09/13/22 08:59 Last Admin: 08/22/22 08:59 Dose: 81 mg Carvedilol (Carvedilol 12.5 Mg Tab) 12.5 mg PO Q12H [facility] Stop: 09/12/22 18:59 Last Admin: 08/22/22 06:25 Dose: 12.5 mg Docusate Sodium (Docusate Sodium 100 Mg Cap) 100 mg PO BID [facility] Stop: 09/12/22 20:59 Last Admin: 08/22/22 08:59 Dose: 100 mg Enoxaparin Sodium (Enoxaparin Inj 30 Mg/0.3 Ml Syr) 30 mg SQ Q24H [facility] Stop: 09/12/22 17:29 Last Admin: 08/21/22 18:18 Dose: 30 mg Ferrous Sulfate (Ferrous Sulfate 325 Mg Tab) 325 mg PO Q48H [facility] Stop: 09/13/22 08:59 Last Admin: 08/22/22 08:59 Dose: 325 mg Hydrochlorothiazide (Hydrochlorothiazide 25 Mg Tab) 12.5 mg PO MoTh [facility] Stop: 09/15/22 08:59 Last Admin: 08/19/22 08:21 Dose: 12.5 mg Lisinopril (Lisinopril 5 Mg Tab) 5 mg PO DAILY [facility] Stop: 09/16/22 08:59 Last Admin: 08/22/22 08:59 Dose: 5 mg Melatonin (Melatonin 3 Mg Tab) 9 mg PO HS [facility] Stop: 09/12/22 20:59 Last Admin: 08/21/22 20:25 Dose: 9 mg Olanzapine (Olanzapine 10 Mg/2.1 Ml Sdv) 2.5 mg IM Q4H PRN PRN Reason: Anxiety/Agitation Stop: 09/13/22 20:07 Ondansetron HCl (Ondansetron Inj 2 Mg/Ml 2 Ml Vial) 4 mg IV Q6H PRN PRN Reason: Nausea Stop: 09/12/22 16:51 Polyethylene Glycol (Polyethylene (Miralax) 17 Gm Pack) 17 gm PO DAILY PRN PRN Reason: Constipation Stop: 09/12/22 16:51 Quetiapine Fumarate (Quetiapine Fumarate 25 Mg Tablet) 12.5 mg PO HS PRN PRN Reason: Agitation Stop: 09/12/22 16:51 Last Admin: 08/21/22 20:26 Dose: 12.5 mg Vitamin D (Cholecalciferol 1,000 Units 25 Mcg Tab) 2,000 units PO [facility] Stop: 09/13/22 08:59 Last Admin: 08/22/22 09:00 Dose: 2,000 units
[2022-08-22] MEDS: ENOXAPARIN INJ 30 MG/0.3 ML SYR SQ SCH (18:23)
[2022-08-22] MEDS: MELATONIN 3 MG TAB PO SCH (20:30)
[2022-08-23] MEDS: carvediloL 12.5 MG TAB PO SCH ×2 (07:25→18:29)
[2022-08-23] MEDS: CHOLECALCIFEROL 1,000 UNITS 25 MCG TAB PO SCH (09:22)
[2022-08-23] MEDS: hydroCHLOROthiazide 25 MG TAB PO SCH (09:22)
[2022-08-23] MEDS: DOCUSATE SODIUM 100 MG CAP PO SCH ×2 (09:22→20:31)
[2022-08-23] MEDS: ASPIRIN 81 MG ECTAB PO SCH (09:22)
[2022-08-23] MEDS: lisinopril 5 MG TAB PO SCH (09:23)
--- NOTE | 2022-08-23 10:18 | Hospitalist Progress Note ---
Date of Service August 23, 2022 Assessment & Plan (1) Delirium: (2) Dementia: Plan 87 y/o M with PMH dementia, dilated cardiomyopathy, nonobstructive CAD, HTN, HLD, chronic LBBB, BPH presented to ER for worsening cognitive function over past year with increased delirium (1) Dementia: (2) Delirium: In ER patient oriented to person only. Labs unremarkable, UA negative. Negative SARS-CoV-2. CT head: No acute intracranial abnormality CXR: No acute infiltrate Family requesting long-term placement as patient becoming unsafe and more difficult to care for at home Monitor for delirium. Patient will need frequent reorientation Continue melatonin Start Seroquel 12.5 mg at bedtime as needed agitation PT/OT eval Case management for assistance with placement (3) Non-occlusive coronary artery disease: (4) Cardiomyopathy: History nonobstructive CAD. History of dilated cardiomyopathy with return to normal systolic function Continue aspirin, carvedilol, simvastatin (5) HTN (hypertension): Continue carvedilol, HCTZ, increased lisinopril from 2.5 to 5 mg daily. uptitrate bp meds as needed. (6) Chronic bundle branch block: Chronic LBBB DVT Prophylaxis: Lovenox SQ DNR/DNI - pt's brother and Larry BACA Follows with Dr Esteban Alcala for routine care DC: awaiting placement. Admission and Anticipated Discharge Date Admission Date: August 13, 2022 Subjective Patient seen in follow-up of worsening dementia. Patient in room, resting in bed in NAD He is breathing comfortably on room air reports no pain or discomfort, no fever, chills, no chest pain, shortness of breath However he also reports seeing a male in his room, and reports that his male is sometimes in his house as well, and it is concerning to him. Review of Systems Review of Systems: All systems reviewed & are unremarkable except as noted in Subjective Physical Exam Physical Exam: GENERAL: Alert and awake. NAD, on RA. HEENT: No pallor, no icterus. Pupils equal, round and reactive to light. Oral mucosa moist. NECK: No JVD, no neck masses. HEART: S1 and S2 heard. Regular rate and rhythm. No murmur, no gallop. RESPIRATORY: Normal AP diameter. No accessory muscle use. No wheezing, no crackles. ABDOMEN: Soft, bowel sounds present, nontender, no distention. NEURO: No facial droop. Speech is clear. Obeys simple commands. Moves extremities. Able to answer simple questions. EXTREMITIES: No edema, no erythema seen. Results & Data Results & Data ([facility]) Vital Signs (Past 12 Hours) Vital Signs Temp Pulse Resp BP BP Pulse Ox O2 Del Method 08/23/22 09:20 71 147/79 H 08/23/22 07:33 36.6 C 61 16 146/68 H 95 Room Air 08/23/22 07:20 62 159/74 H 08/23/22 06:12 58 L 148/71 H Medications Administered Current Inpatient Medications Acetaminophen (Acetaminophen 325 Mg Tab) 650 mg PO Q4H PRN PRN Reason: Pain or Fever Stop: 09/12/22 16:51 Aspirin (Aspirin 81 Mg Ectab) 81 mg PO DAILY DOMINIC Stop: 09/13/22 08:59 Last Admin: 08/23/22 09:22 Dose: 81 mg Carvedilol (Carvedilol 12.5 Mg Tab) 12.5 mg PO Q12H DOMINIC Stop: 09/12/22 18:59 Last Admin: 08/23/22 07:25 Dose: 12.5 mg Docusate Sodium (Docusate Sodium 100 Mg Cap) 100 mg PO BID DOMINIC Stop: 09/12/22 20:59 Last Admin: 08/23/22 09:22 Dose: 100 mg Enoxaparin Sodium (Enoxaparin Inj 30 Mg/0.3 Ml Syr) 30 mg SQ Q24H DOMINIC Stop: 09/12/22 17:29 Last Admin: 08/22/22 18:23 Dose: 30 mg Ferrous Sulfate (Ferrous Sulfate 325 Mg Tab) 325 mg PO Q48H DOMINIC Stop: 09/13/22 08:59 Last Admin: 08/22/22 08:59 Dose: 325 mg Hydrochlorothiazide (Hydrochlorothiazide 25 Mg Tab) 12.5 mg PO MoTh DOMINIC Stop: 09/15/22 08:59 Last Admin: 08/23/22 09:22 Dose: 12.5 mg Lisinopril (Lisinopril 5 Mg Tab) 5 mg PO DAILY DOMINIC Stop: 09/16/22 08:59 Last Admin: 08/23/22 09:23 Dose: 5 mg Melatonin (Melatonin 3 Mg Tab) 9 mg PO HS DOMINIC Stop: 09/12/22 20:59 Last Admin: 08/22/22 20:30 Dose: 9 mg Olanzapine (Olanzapine 10 Mg/2.1 Ml Sdv) 2.5 mg IM Q4H PRN PRN Reason: Anxiety/Agitation Stop: 09/13/22 20:07 Ondansetron HCl (Ondansetron Inj 2 Mg/Ml 2 Ml Vial) 4 mg IV Q6H PRN PRN Reason: Nausea Stop: 09/12/22 16:51 Polyethylene Glycol (Polyethylene (Miralax) 17 Gm Pack) 17 gm PO DAILY PRN PRN Reason: Constipation Stop: 09/12/22 16:51 Quetiapine Fumarate (Quetiapine Fumarate 25 Mg Tablet) 12.5 mg PO HS PRN PRN Reason: Agitation Stop: 09/12/22 16:51 Last Admin: 08/21/22 20:26 Dose: 12.5 mg Vitamin D (Cholecalciferol 1,000 Units 25 Mcg Tab) 2,000 units PO QAM DOMINIC Stop: 09/13/22 08:59 Last Admin: 08/23/22 09:22 Dose: 2,000 units
[2022-08-23] MEDS: ENOXAPARIN INJ 30 MG/0.3 ML SYR SQ SCH (18:28)
[2022-08-23] MEDS: MELATONIN 3 MG TAB PO SCH (20:31)
[2022-08-23] MEDS: QUEtiapine FUMARATE 25 MG TABLET PO PRN (22:40)
[2022-08-24] MEDS: carvediloL 12.5 MG TAB PO SCH ×2 (06:23→18:37)
--- NOTE | 2022-08-24 08:12 | Hospitalist Progress Note ---
Date of Service August 24, 2022 Assessment & Plan (1) Delirium: (2) Dementia: Plan 87 y/o M with PMH dementia, dilated cardiomyopathy, nonobstructive CAD, HTN, HLD, chronic LBBB, BPH presented to ER for worsening cognitive function over past year with increased delirium (1) Dementia: (2) Delirium: In ER patient oriented to person only. Labs unremarkable, UA negative. Negative SARS-CoV-2. CT head: No acute intracranial abnormality CXR: No acute infiltrate Family requesting long-term placement as patient becoming unsafe and more difficult to care for at home Monitor for delirium. Patient will need frequent reorientation Continue melatonin Start Seroquel 12.5 mg at bedtime as needed agitation PT/OT eval Case management for assistance with placement (3) Non-occlusive coronary artery disease: (4) Cardiomyopathy: History nonobstructive CAD. History of dilated cardiomyopathy with return to normal systolic function Continue aspirin, carvedilol, simvastatin (5) HTN (hypertension): Continue carvedilol, HCTZ, increased lisinopril from 2.5 to 5 mg daily. uptitrate bp meds as needed. (6) Chronic bundle branch block: Chronic LBBB DVT Prophylaxis: Lovenox SQ DNR/DNI - pt's brother and Larry BACA Follows with Dr Esteban Alcala for routine care DC: awaiting placement. Admission and Anticipated Discharge Date Admission Date: August 13, 2022 Subjective Patient seen in follow-up of worsening dementia. Patient in room, resting in bed in NAD He is breathing comfortably on room air reports no pain or discomfort, no fever, chills, no chest pain, shortness of breath Yesterday he told me he has been seeing a male in his room, and reports that this male is sometimes in his house as well, and it is concerning to him. Review of Systems Review of Systems: All systems reviewed & are unremarkable except as noted in Subjective Physical Exam Physical Exam: GENERAL: Alert and awake. NAD, on RA. HEENT: No pallor, no icterus. Pupils equal, round and reactive to light. Oral mucosa moist. NECK: No JVD, no neck masses. HEART: S1 and S2 heard. Regular rate and rhythm. No murmur, no gallop. RESPIRATORY: Normal AP diameter. No accessory muscle use. No wheezing, no crackles. ABDOMEN: Soft, bowel sounds present, nontender, no distention. NEURO: No facial droop. Speech is clear. Obeys simple commands. Moves extremities. Able to answer simple questions. EXTREMITIES: No edema, no erythema seen. Results & Data Results & Data ([facility]) Vital Signs (Past 12 Hours) Vital Signs Temp Pulse Resp BP Pulse Ox O2 Del Method 08/24/22 07:34 36.5 C 69 16 156/74 H 95 Room Air 08/24/22 06:23 61 116/59 L 97 Room Air 08/23/22 21:19 36.7 C 69 18 122/56 L 94 Room Air Medications Administered Current Inpatient Medications Acetaminophen (Acetaminophen 325 Mg Tab) 650 mg PO Q4H PRN PRN Reason: Pain or Fever Stop: 09/12/22 16:51 Aspirin (Aspirin 81 Mg Ectab) 81 mg PO DAILY DOMINIC Stop: 09/13/22 08:59 Last Admin: 08/23/22 09:22 Dose: 81 mg Carvedilol (Carvedilol 12.5 Mg Tab) 12.5 mg PO Q12H DOMINIC Stop: 09/12/22 18:59 Last Admin: 08/24/22 06:23 Dose: 12.5 mg Docusate Sodium (Docusate Sodium 100 Mg Cap) 100 mg PO BID DOMINIC Stop: 09/12/22 20:59 Last Admin: 08/23/22 20:31 Dose: 100 mg Enoxaparin Sodium (Enoxaparin Inj 30 Mg/0.3 Ml Syr) 30 mg SQ Q24H DOMINIC Stop: 09/12/22 17:29 Last Admin: 08/23/22 18:28 Dose: 30 mg Ferrous Sulfate (Ferrous Sulfate 325 Mg Tab) 325 mg PO Q48H DOMINIC Stop: 09/13/22 08:59 Last Admin: 08/22/22 08:59 Dose: 325 mg Hydrochlorothiazide (Hydrochlorothiazide 25 Mg Tab) 12.5 mg PO MoTh DOMINIC Stop: 09/15/22 08:59 Last Admin: 08/23/22 09:22 Dose: 12.5 mg Lisinopril (Lisinopril 5 Mg Tab) 5 mg PO DAILY DOMINIC Stop: 09/16/22 08:59 Last Admin: 08/23/22 09:23 Dose: 5 mg Melatonin (Melatonin 3 Mg Tab) 9 mg PO HS DOMINIC Stop: 09/12/22 20:59 Last Admin: 08/23/22 20:31 Dose: 9 mg Olanzapine (Olanzapine 10 Mg/2.1 Ml Sdv) 2.5 mg IM Q4H PRN PRN Reason: Anxiety/Agitation Stop: 09/13/22 20:07 Ondansetron HCl (Ondansetron Inj 2 Mg/Ml 2 Ml Vial) 4 mg IV Q6H PRN PRN Reason: Nausea Stop: 09/12/22 16:51 Polyethylene Glycol (Polyethylene (Miralax) 17 Gm Pack) 17 gm PO DAILY PRN PRN Reason: Constipation Stop: 09/12/22 16:51 Quetiapine Fumarate (Quetiapine Fumarate 25 Mg Tablet) 12.5 mg PO HS PRN PRN Reason: Agitation Stop: 09/12/22 16:51 Last Admin: 08/23/22 22:40 Dose: 12.5 mg Vitamin D (Cholecalciferol 1,000 Units 25 Mcg Tab) 2,000 units PO QAM DOMINIC Stop: 09/13/22 08:59 Last Admin: 08/23/22 09:22 Dose: 2,000 units
[2022-08-24] MEDS: lisinopril 5 MG TAB PO SCH (08:32)
[2022-08-24] MEDS: CHOLECALCIFEROL 1,000 UNITS 25 MCG TAB PO SCH (08:32)
[2022-08-24] MEDS: FERROUS SULFATE 325 MG TAB PO SCH (08:32)
[2022-08-24] MEDS: ASPIRIN 81 MG ECTAB PO SCH (08:32)
[2022-08-24] MEDS: DOCUSATE SODIUM 100 MG CAP PO SCH ×2 (08:32→21:29)
[2022-08-24] MEDS: ENOXAPARIN INJ 30 MG/0.3 ML SYR SQ SCH (17:45)
[2022-08-24] MEDS: QUEtiapine FUMARATE 25 MG TABLET PO PRN (21:28)
[2022-08-24] MEDS: MELATONIN 3 MG TAB PO SCH (21:29)
[2022-08-25] MEDS: carvediloL 12.5 MG TAB PO SCH ×2 (08:39→18:28)
[2022-08-25] MEDS: CHOLECALCIFEROL 1,000 UNITS 25 MCG TAB PO SCH (08:42)
[2022-08-25] MEDS: lisinopril 5 MG TAB PO SCH (08:43)
[2022-08-25] MEDS: DOCUSATE SODIUM 100 MG CAP PO SCH ×2 (08:43→20:35)
[2022-08-25] MEDS: ASPIRIN 81 MG ECTAB PO SCH (08:43)
--- NOTE | 2022-08-25 18:24 | Hospitalist Progress Note ---
Date of Service August 25, 2022 Assessment & Plan (1) Delirium: (2) Dementia: Plan Patient is 87 y/o M with PMH dementia, dilated cardiomyopathy, nonobstructive CAD, HTN, HLD, chronic LBBB, BPH presented to ER for worsening cognitive function over past year with increased delirium Dementia: Delirium in setting of Dementia -CT head:There is no hemorrhage, mass effect, or evidence of acute territorial ischemia by CT criteria. -UA Normal -Negative SARS-CoV-2. -CXR:No acute chest disease. Cardiomegaly is noted. Family requesting long-term placement as patient becoming unsafe and more difficult to care for at home Reorient frequently to minimize delirium Continue melatonin Seroquel as needed for agitation Case management to help with placement Non-occlusive coronary artery disease: H/O Dilated cardiomyopathy Continue aspirin, carvedilol, simvastatin HTN Continue carvedilol, HCTZ, lisinopril Monitor Chronic bundle branch block: Chronic LBBB DVT Px Lovenox SQ Code Status DNR/DNI Admission and Anticipated Discharge Date Admission Date: August 13, 2022 Subjective Patient is seen and examined at bedside Offers no complaints Waiting for placement Ambulating in hallway using walker with supervision Review of Systems Review of Systems: All systems reviewed & are unremarkable except as noted in Subjective Physical Exam Physical Exam: Physical Exam: Vitals signs as noted above General Appearance:Moderately built and nourished, no apparent distress, Elderly Head: normocephalic, Atraumatic Eyes: normal inspection, EOMI Neck: supple, Trachea midline Respiratory/Chest: Normal breath sounds, CTA, No accessory muscle use Cardiovascular: S1, S2, No murmur Abdomen/GI:Soft, Non tender, Bowel sounds present Extremities/Musculoskeletal:normal inspection, no edema Neurologic/Psych:AA, grossly no focal neurological deficits, +Dementia Skin: normal color, warm Results & Data Results & Data ([facility]) Vital Signs (Past 12 Hours) Vital Signs Temp Pulse Pulse Resp BP BP Pulse Ox 08/25/22 15:48 36.5 C 64 18 130/75 96 08/25/22 07:50 08/25/22 08:40 63 124/73 96 08/25/22 07:35 36.5 C 62 16 129/64 97 O2 Del Method 08/25/22 15:48 Room Air 08/25/22 07:50 Room Air 08/25/22 08:40 Room Air 08/25/22 07:35 Room Air
[2022-08-25] MEDS: ENOXAPARIN INJ 30 MG/0.3 ML SYR SQ SCH (18:26)
[2022-08-25] MEDS: MELATONIN 3 MG TAB PO SCH (20:35)
[2022-08-26] MEDS: carvediloL 12.5 MG TAB PO SCH ×2 (06:14→18:29)
[2022-08-26] MEDS: lisinopril 5 MG TAB PO SCH (08:47)
[2022-08-26] MEDS: hydroCHLOROthiazide 25 MG TAB PO SCH (08:47)
[2022-08-26] MEDS: DOCUSATE SODIUM 100 MG CAP PO SCH ×2 (08:48→20:08)
[2022-08-26] MEDS: FERROUS SULFATE 325 MG TAB PO SCH (08:48)
[2022-08-26] MEDS: ASPIRIN 81 MG ECTAB PO SCH (08:48)
[2022-08-26] MEDS: CHOLECALCIFEROL 1,000 UNITS 25 MCG TAB PO SCH (08:48)
--- NOTE | 2022-08-26 14:14 | Hospitalist Progress Note ---
Date of Service August 26, 2022 Assessment & Plan (1) Delirium: (2) Dementia: Plan Patient is 87 y/o M with PMH dementia, dilated cardiomyopathy, nonobstructive CAD, HTN, HLD, chronic LBBB, BPH presented to ER for worsening cognitive function over past year with increased delirium Dementia: Delirium in setting of Dementia -CT head:There is no hemorrhage, mass effect, or evidence of acute territorial ischemia by CT criteria. -UA Normal -Negative SARS-CoV-2. -CXR:No acute chest disease. Cardiomegaly is noted. Family requesting long-term placement as patient becoming unsafe and more difficult to care for at home Reorient frequently to minimize delirium Continue melatonin Seroquel as needed for agitation Case management to help with placement Non-occlusive coronary artery disease: H/O Dilated cardiomyopathy Continue aspirin, carvedilol, simvastatin HTN Continue carvedilol, HCTZ, lisinopril Monitor Chronic bundle branch block: Chronic LBBB DVT Px Lovenox SQ Code Status DNR/DNI A total of 25 minutes were spent with greater than 50% of that time face to face with the patient, personally reviewing all current laboratories, imaging studies, past medication reconciliation, outpatient chart review, and discussion with specialists to collaborate care for the patient with attending and utilization of translation services. Please see attending documentation for corrections and/or additions. Admission and Anticipated Discharge Date Admission Date: August 13, 2022 Supervising Physician Co-Signing Physician Notes Patient is seen and examined at bedside. Offers no complaints. Pleasantly confused. Physical Exam: Vitals signs as noted above General Appearance:Moderately built and nourished, no apparent distress, Elderly Head: normocephalic, Atraumatic Eyes: normal inspection, EOMI Neck: supple, Trachea midline Respiratory/Chest: Normal breath sounds, CTA, No accessory muscle use Cardiovascular: S1, S2, No murmur Abdomen/GI:Soft, Non tender, Bowel sounds present Extremities/Musculoskeletal:normal inspection, no edema Neurologic/Psych:AA, grossly no focal neurological deficits, +Dementia Skin: normal color, warm Dementia: Delirium in setting of Dementia Reorient frequently Continue melatonin Waiting for placement I personally reviewed the record. Patient is interviewed and examined at bedside. Patient's care is coordinated with Geovanna Arriaza PA-C. Please refer to the documentation above for details of patient's presentation and for discussion of other issues. Subjective Seen and examined in 352 bed 2. Awaiting placement. Resting comfortably, no acute issues overnight. Denies any fever, chills, headache, lightheadedness, visual changes, sore throat, cough, chest pain, palpitations, shortness of breath, abdominal pain, nausea, vomiting, dysuria, constipation or diarrhea. Review of Systems Review of Systems: At least ten systems reviewed and negative except as noted in the HPI. Physical Exam Physical Exam: Gen: WD/WN, NAD, sitting in bedside chair, pleasantly confused HEENT: Normocephalic, atraumatic, conjunctivae moist, sclerae anicteric, mucous membranes moist Lung: Clear to Auscultation bilaterally, no wheezes/rales/rhonchi Heart: Regular rate, regular rhythm, no murmurs, rubs, or gallops Abdomen: Soft, NT, ND +BS x 4 Extremities: no edema Skin: Warm, no rash Results & Data Results & Data ([facility]) Vital Signs (Past 12 Hours) Vital Signs Temp Pulse Resp BP BP Pulse Ox O2 Del Method 08/26/22 07:24 37.0 C 61 17 122/69 93 Room Air 08/26/22 06:12 65 145/73 H 96 Room Air
[2022-08-26] MEDS: ENOXAPARIN INJ 30 MG/0.3 ML SYR SQ SCH (16:56)
[2022-08-26] MEDS: MELATONIN 3 MG TAB PO SCH (20:08)
[2022-08-27] MEDS: QUEtiapine FUMARATE 25 MG TABLET PO PRN ×2 (04:06→20:24)
[2022-08-27] MEDS: carvediloL 12.5 MG TAB PO SCH ×2 (07:53→18:24)
[2022-08-27] MEDS: DOCUSATE SODIUM 100 MG CAP PO SCH ×2 (08:26→20:24)
[2022-08-27] MEDS: CHOLECALCIFEROL 1,000 UNITS 25 MCG TAB PO SCH (08:26)
[2022-08-27] MEDS: ASPIRIN 81 MG ECTAB PO SCH (08:26)
[2022-08-27] MEDS: lisinopril 5 MG TAB PO SCH (08:26)
[2022-08-27] MEDS ORDERED: bisacodyL 5 MG TABEC PO ONE (11:10)
--- NOTE | 2022-08-27 15:15 | Hospitalist Progress Note ---
Date of Service August 27, 2022 Assessment & Plan (1) Delirium: (2) Dementia: Plan Patient is 87 y/o M with PMH dementia, dilated cardiomyopathy, nonobstructive CAD, HTN, HLD, chronic LBBB, BPH presented to ER for worsening cognitive function over past year with increased delirium Dementia: Delirium in setting of Dementia -CT head:There is no hemorrhage, mass effect, or evidence of acute territorial ischemia by CT criteria. -UA Normal -Negative SARS-CoV-2. -CXR:No acute chest disease. Cardiomegaly is noted. Family requesting long-term placement as patient becoming unsafe and more difficult to care for at home Reorient frequently to minimize delirium Continue melatonin Seroquel as needed for agitation Case management to help with placement - per discussion with CM today, working on bed for next week Constipation No documented bowel movement since 08/23/22. Continue colace, gave Dulcolax x 1 today. Will resume home Dulcolax suppository PRN. No abd pain, N/V Non-occlusive coronary artery disease: H/O Dilated cardiomyopathy Continue aspirin, carvedilol, simvastatin HTN Continue carvedilol, HCTZ, lisinopril Monitor Chronic bundle branch block: Chronic LBBB DVT Px Lovenox SQ Code Status DNR/DNI A total of 25 minutes were spent with greater than 50% of that time face to face with the patient, personally reviewing all current laboratories, imaging studies, past medication reconciliation, outpatient chart review, and discussion with specialists to collaborate care for the patient with attending and utilization of translation services. Please see attending documentation for corrections and/or additions. Admission and Anticipated Discharge Date Admission Date: August 13, 2022 Supervising Physician Co-Signing Physician Notes Patient is seen and examined at bedside. Sitting in chair comfortably. Denies any chest pain, dyspnea, dizziness, nausea, abdominal pain. Physical Exam: Vitals signs as noted above General Appearance:Moderately built and nourished, no apparent distress, Elderly Head: normocephalic, Atraumatic Eyes: normal inspection, EOMI Neck: supple, Trachea midline Respiratory/Chest: Normal breath sounds, CTA, No accessory muscle use Cardiovascular: S1, S2, No murmur Abdomen/GI:Soft, Non tender, Bowel sounds present Extremities/Musculoskeletal:normal inspection, no edema Neurologic/Psych:AA, grossly no focal neurological deficits, +Dementia Skin: normal color, warm Dementia: Delirium in setting of Dementia Reorient frequently Continue melatonin Waiting for placement Continue current management I personally reviewed the record. Patient is interviewed and examined at bedside. Patient's care is coordinated with Geovanna Arriaza PA-C. Please refer to the documentation above for details of patient's presentation and for discussion of other issues. Subjective Seen and examined in 352 bed 2. Awaiting placement. Resting comfortably, no acute issues overnight. Denies any fever, headache, lightheadedness,chest pain,shortness of breath, abdominal pain, nausea, vomiting, dysuria or diarrhea. Review of Systems Review of Systems: At least ten systems reviewed and negative except as noted in the HPI. Physical Exam Physical Exam: Gen: WD/WN, NAD, sitting in bedside chair, pleasantly confused HEENT: Normocephalic, atraumatic, conjunctivae moist, sclerae anicteric, mucous membranes moist Lung: Clear to Auscultation bilaterally, no wheezes/rales/rhonchi Heart: Regular rate, regular rhythm, no murmurs, rubs, or gallops Abdomen: Soft, NT, ND +BS x 4 Extremities: no edema Skin: Warm, no rash Results & Data Results & Data ([facility]) Vital Signs (Past 12 Hours) Vital Signs Temp Pulse Resp BP Pulse Ox O2 Del Method 08/27/22 14:57 36.8 C 65 16 138/71 95 Room Air 08/27/22 07:51 36.7 C 71 16 122/68 94 Room Air
[2022-08-27] MEDS ORDERED: bisacodyL 10 MG SUPP PR PRN (15:21)
[2022-08-27] MEDS: ENOXAPARIN INJ 30 MG/0.3 ML SYR SQ SCH (17:09)
[2022-08-27] MEDS: MELATONIN 3 MG TAB PO SCH (20:24)
[2022-08-27] MEDS: SIMVASTATIN 40 MG TAB PO SCH (21:44)
[2022-08-28] MEDS: carvediloL 12.5 MG TAB PO SCH ×2 (07:35→18:30)
[2022-08-28] MEDS: MULTIVITAMIN TAB PO SCH (08:39)
[2022-08-28] MEDS: ASPIRIN 81 MG ECTAB PO SCH (08:39)
[2022-08-28] MEDS: lisinopril 5 MG TAB PO SCH (08:39)
[2022-08-28] MEDS: DOCUSATE SODIUM 100 MG CAP PO SCH ×2 (08:39→21:46)
[2022-08-28] MEDS: CHOLECALCIFEROL 1,000 UNITS 25 MCG TAB PO SCH (08:39)
[2022-08-28] MEDS: FERROUS SULFATE 325 MG TAB PO SCH (08:39)
--- NOTE | 2022-08-28 17:35 | Hospitalist Progress Note ---
Date of Service August 28, 2022 Assessment & Plan (1) Delirium: (2) Dementia: Plan Patient is 87 y/o M with PMH dementia, dilated cardiomyopathy, nonobstructive CAD, HTN, HLD, chronic LBBB, BPH presented to ER for worsening cognitive function over past year with increased delirium Dementia: Delirium in setting of Dementia -CT head:There is no hemorrhage, mass effect, or evidence of acute territorial ischemia by CT criteria. -UA Normal -Negative SARS-CoV-2. -CXR:No acute chest disease. Cardiomegaly is noted. Family requesting long-term placement as patient becoming unsafe and more difficult to care for at home Reorient frequently to minimize delirium Continue melatonin Seroquel as needed for agitation Waiting for placement Constipation No documented bowel movement since 08/23/22. Continue colace, Dulcolax suppository PRN Will obtain KUB AM Non-occlusive coronary artery disease: H/O Dilated cardiomyopathy Continue aspirin, carvedilol, simvastatin HTN Continue carvedilol, HCTZ, lisinopril Monitor Chronic bundle branch block: Chronic LBBB DVT Px Lovenox SQ Code Status DNR/DNI Admission and Anticipated Discharge Date Admission Date: August 13, 2022 Subjective Patient is seen and examined at bedside Pleasant Working on his puzzle during my encounter Offers no complaints Review of Systems Review of Systems: All systems reviewed & are unremarkable except as noted in Subjective Physical Exam Physical Exam: Physical Exam: Vitals signs as noted above General Appearance:Moderately built and nourished, no apparent distress, Elderly Head: normocephalic, Atraumatic Eyes: normal inspection, EOMI Neck: supple, Trachea midline Respiratory/Chest: Normal breath sounds, CTA, No accessory muscle use Cardiovascular: S1, S2, No murmur Abdomen/GI:Soft, Non tender, Bowel sounds present Extremities/Musculoskeletal:normal inspection, no edema Neurologic/Psych:AA, grossly no focal neurological deficits, +Dementia Skin: normal color, warm Results & Data Results & Data ([facility]) Vital Signs (Past 12 Hours) Vital Signs Temp Pulse Resp BP Pulse Ox O2 Del Method 08/28/22 14:37 36.9 C 69 16 149/78 H 97 Room Air 08/28/22 07:33 36.6 C 59 L 18 121/71 94 Room Air
[2022-08-28] MEDS: ENOXAPARIN INJ 30 MG/0.3 ML SYR SQ SCH (17:45)
[2022-08-28] MEDS: MELATONIN 3 MG TAB PO SCH (21:46)
[2022-08-28] MEDS: SIMVASTATIN 40 MG TAB PO SCH (21:46)
[2022-08-28] MEDS: QUEtiapine FUMARATE 25 MG TABLET PO PRN (21:46)
[2022-08-29] MEDS: carvediloL 12.5 MG TAB PO SCH ×3 (08:46→18:16)
[2022-08-29] MEDS ORDERED: POTASSIUM CHLORIDE 20 MEQ/15 ML UDC PO ONE (10:05)
[2022-08-29] MEDS: CHOLECALCIFEROL 1,000 UNITS 25 MCG TAB PO SCH (10:14)
[2022-08-29] MEDS: ASPIRIN 81 MG ECTAB PO SCH (10:14)
[2022-08-29] MEDS: lisinopril 5 MG TAB PO SCH (10:14)
[2022-08-29] MEDS: MULTIVITAMIN TAB PO SCH (10:14)
[2022-08-29] MEDS: DOCUSATE SODIUM 100 MG CAP PO SCH ×2 (10:14→20:44)
--- NOTE | 2022-08-29 10:41 | XRay Report ---
KUB CLINICAL HISTORY: Constipation. FINDINGS: An AP, portable, supine abdominal radiograph is compared to study dated 03/01/2017 and corre lated with abdominal CT dated 07/29/2019. There is a nonobstructed abdominal bowel gas pattern. Mild-to -moderate fecal retention is seen throughout the colon. No evidence of intraperitoneal free air is se en on this supine image. There are no abnormal abdominal calcifications. Phleboliths and brachytherap y implants are noted in the pelvis. The skeletal structures are osteopenic and appear intact. There i s lumbosacral spondylosis. IMPRESSION: Mild to moderate colonic fecal retention. Electronically signed by: Trent Maciel M.D. 08/29/2022 10:40 AM
[2022-08-29] MEDS: POLYETHYLENE (MIRALAX) 17 GM PACK PO SCH (13:49)
--- NOTE | 2022-08-29 17:33 | Hospitalist Progress Note ---
Date of Service August 29, 2022 Assessment & Plan (1) Delirium: (2) Dementia: Plan Patient is 87 y/o M with PMH dementia, dilated cardiomyopathy, nonobstructive CAD, HTN, HLD, chronic LBBB, BPH presented to ER for worsening cognitive function over past year with increased delirium Dementia: Delirium in setting of Dementia -CT head:There is no hemorrhage, mass effect, or evidence of acute territorial ischemia by CT criteria. -UA Normal -Negative SARS-CoV-2. -CXR:No acute chest disease. Cardiomegaly is noted. Family requesting long-term placement as patient becoming unsafe and more difficult to care for at home Reorient frequently to minimize delirium Continue melatonin Seroquel as needed for agitation Waiting for placement Constipation No documented bowel movement since 08/23/22. KUB:Mild to moderate colonic fecal retention. Continue colace, MiraLAX, Dulcolax suppository PRN Encouraged to ambulate Non-occlusive coronary artery disease: H/O Dilated cardiomyopathy Continue aspirin, carvedilol, simvastatin HTN Continue carvedilol, HCTZ, lisinopril Monitor Chronic bundle branch block: Chronic LBBB DVT Px Lovenox SQ Code Status DNR/DNI Admission and Anticipated Discharge Date Admission Date: August 13, 2022 Subjective Patient is seen and examined at bedside History unreliable secondary to dementia Offers no complaints No bowel movement documented KUB suggestive of fecal retention Review of Systems Review of Systems: All systems reviewed & are unremarkable except as noted in Subjective Physical Exam Physical Exam: Physical Exam: Vitals signs as noted above General Appearance:Moderately built and nourished, no apparent distress, Elderly Head: normocephalic, Atraumatic Eyes: normal inspection, EOMI Neck: supple, Trachea midline Respiratory/Chest: Normal breath sounds, CTA, No accessory muscle use Cardiovascular: S1, S2, No murmur Abdomen/GI:Soft, Non tender, Bowel sounds present Extremities/Musculoskeletal:normal inspection, no edema Neurologic/Psych:AA, grossly no focal neurological deficits, +Dementia Skin: normal color, warm Results & Data Results & Data ([facility]) Vital Signs (Past 12 Hours) Vital Signs Temp Pulse Resp BP BP Pulse Ox O2 Del Method 08/29/22 14:00 36.6 C 67 16 139/87 96 Room Air 08/29/22 07:49 36.6 C 70 16 135/81 98 Room Air
[2022-08-29] MEDS: ENOXAPARIN INJ 30 MG/0.3 ML SYR SQ SCH (18:16)
[2022-08-29] MEDS: QUEtiapine FUMARATE 25 MG TABLET PO PRN (20:44)
[2022-08-29] MEDS: SENNA 8.6 MG TAB PO SCH (20:44)
[2022-08-29] MEDS: SIMVASTATIN 40 MG TAB PO SCH (20:44)
[2022-08-29] MEDS: MELATONIN 3 MG TAB PO SCH (20:44)
[2022-08-30] MEDS: carvediloL 12.5 MG TAB PO SCH ×2 (08:33→18:24)
[2022-08-30] MEDS: DOCUSATE SODIUM 100 MG CAP PO SCH ×2 (08:33→20:00)
[2022-08-30] MEDS: POLYETHYLENE (MIRALAX) 17 GM PACK PO SCH (08:33)
[2022-08-30] MEDS: ASPIRIN 81 MG ECTAB PO SCH (08:33)
[2022-08-30] MEDS: MULTIVITAMIN TAB PO SCH (08:33)
[2022-08-30] MEDS: FERROUS SULFATE 325 MG TAB PO SCH (08:33)
[2022-08-30] MEDS: hydroCHLOROthiazide 25 MG TAB PO SCH (08:34)
[2022-08-30] MEDS: CHOLECALCIFEROL 1,000 UNITS 25 MCG TAB PO SCH (08:34)
[2022-08-30] MEDS: lisinopril 5 MG TAB PO SCH (08:34)
[2022-08-30] MEDS ORDERED: bisacodyL 10 MG SUPP PR ONE (09:43)
--- NOTE | 2022-08-30 11:48 | Hospitalist Progress Note ---
Date of Service August 30, 2022 Assessment & Plan (1) Delirium: (2) Dementia: Plan Patient is 87 y/o M with PMH dementia, dilated cardiomyopathy, nonobstructive CAD, HTN, HLD, chronic LBBB, BPH presented to ER for worsening cognitive function over past year with increased delirium. Dementia: Delirium in setting of Dementia -CT head:There is no hemorrhage, mass effect, or evidence of acute territorial ischemia by CT criteria. -UA Normal -Negative SARS-CoV-2. -CXR:No acute chest disease. Cardiomegaly is noted. Family requesting long-term placement as patient becoming unsafe and more difficult to care for at home Reorient frequently to minimize delirium Continue melatonin Seroquel as needed for agitation Waiting for placement Constipation No documented bowel movement since 08/23/22. KUB:Mild to moderate colonic fecal retention. Continue colace, MiraLAX, Dulcolax suppository PRN Encouraged to ambulate BM on 08/30 per nurse s/p suppository Non-occlusive coronary artery disease: H/O Dilated cardiomyopathy Continue aspirin, carvedilol, simvastatin HTN Continue carvedilol, HCTZ, lisinopril Monitor, BP stable 129/73 Chronic bundle branch block: Chronic LBBB DVT Px Lovenox SQ Code Status DNR/DNI Dispo: awaiting placement A total of 25 minutes was spent with greater than 50% of that time personally viewing all current laboratory work and diagnostic imaging studies obtained in the ED. Additionally, I was able to view the patients past medication reconciliation and history with direct visualization in the patients chart. Included in the time above, a portion of that time was spent assessing the patient while discussing and collaborating with specialists, if necessary, and making medical decision making on treatment plan. All of the above was collaborated with Dr. Madrid. Please see addendum for further details. Admission and Anticipated Discharge Date Admission Date: August 13, 2022 Supervising Physician Co-Signing Physician Notes Patient is seen and examined at bedside. Pleasantly confused. Ambulating with walker this morning. No bowel movement documented. Denies any chest pain, dyspnea, dizziness, nausea, abdominal pain. Waiting for placement Physical Exam: Vitals signs as noted above General Appearance:Moderately built and nourished, no apparent distress, Elderly Head: normocephalic, Atraumatic Eyes: normal inspection, EOMI Neck: supple, Trachea midline Respiratory/Chest: Normal breath sounds, CTA, No accessory muscle use Cardiovascular: S1, S2, No murmur Abdomen/GI:Soft, Non tender, mildly distended, bowel sounds present Extremities/Musculoskeletal:normal inspection, no edema Neurologic/Psych:AA, grossly no focal neurological deficits, +Dementia Skin: normal color, warm Dementia: Delirium in setting of Dementia Reorient frequently Continue melatonin Waiting for placement Constipation Continue bowel regimen I personally reviewed the record. Patient is interviewed and examined at bedside. Patient's care is coordinated with Mary Locke PA-C. Please refer to the documentation above for details of patient's presentation and for discussion of other issues. Subjective Patient was seen and examined in 352-2. Follow up delirium. He is sitting up in bed with no acute concerns. ROS unreliable due to underlying cognition. Denies pain, CP, sob, n/v/d, abd pain. Review of Systems Review of Systems: All systems reviewed & are unremarkable except as noted in HPI & below Physical Exam Physical Exam: Gen: WD/WN, elderly, NAD, Alert but pleasantly confused HEENT: Normocephalic, atraumatic, conjunctivae moist, sclerae anicteric, mucous membranes moist. Lung: Clear to Auscultation bilaterally, no wheezes/rales/rhonchi Heart: Regular rate, regular rhythm, no murmurs, rubs, or gallops Abdomen: Soft, NT, ND +BS x 4 Extremities: No edema Skin: Warm, no rash, negative turgor. Results & Data Results & Data ([facility]) Vital Signs (Past 12 Hours) Vital Signs Temp Pulse Resp BP BP Pulse Ox O2 Del Method 08/30/22 07:14 36.7 C 61 12 129/73 96 Room Air 08/30/22 00:21 36.5 C 61 17 125/67 97 Room Air
[2022-08-30] MEDS: ENOXAPARIN INJ 30 MG/0.3 ML SYR SQ SCH (18:24)
[2022-08-30] MEDS: MELATONIN 3 MG TAB PO SCH (19:59)
[2022-08-30] MEDS: SIMVASTATIN 40 MG TAB PO SCH (20:00)
[2022-08-30] MEDS: QUEtiapine FUMARATE 25 MG TABLET PO PRN (20:00)
[2022-08-30] MEDS: SENNA 8.6 MG TAB PO SCH (20:00)
[2022-08-31] MEDS ORDERED: OLANZapine 10 MG/2.1 ML SDV IM PRN (05:20)
[2022-08-31] MEDS ORDERED: OLANZapine 10 MG/2.1 ML SDV IM STA (05:20)
[2022-08-31 08:34] LABS: BUN Creatinine Ratio 27.8 (10-20); Calcium 8.3 mg/dl (8.5-10.1); Creatinine Clr Calc Pharmacy 69.3 ml/min; Est GFR (African American) 94.2 ml/min; Est GFR (Non-African American) 81.3 ml/min; Potassium 3.8 mmol/L (3.5-5.1)
[2022-08-31] MEDS: ASPIRIN 81 MG ECTAB PO SCH (08:42)
[2022-08-31] MEDS: MULTIVITAMIN TAB PO SCH (08:42)
[2022-08-31] MEDS: lisinopril 5 MG TAB PO SCH (08:42)
[2022-08-31] MEDS: DOCUSATE SODIUM 100 MG CAP PO SCH ×2 (08:42→20:45)
[2022-08-31] MEDS: CHOLECALCIFEROL 1,000 UNITS 25 MCG TAB PO SCH (08:42)
[2022-08-31] MEDS: carvediloL 12.5 MG TAB PO SCH ×2 (08:43→18:04)
[2022-08-31] MEDS: POLYETHYLENE (MIRALAX) 17 GM PACK PO SCH (08:43)
--- NOTE | 2022-08-31 13:01 | Hospitalist Progress Note ---
Date of Service August 31, 2022 Assessment & Plan (1) Delirium: (2) Dementia: Plan Patient is 87 y/o M with PMH dementia, dilated cardiomyopathy, nonobstructive CAD, HTN, HLD, chronic LBBB, BPH presented to ER for worsening cognitive function over past year with increased delirium. Dementia: Delirium in setting of Dementia -CT head:There is no hemorrhage, mass effect, or evidence of acute territorial ischemia by CT criteria. -UA Normal -Negative SARS-CoV-2. -CXR:No acute chest disease. Cardiomegaly is noted. Family requesting long-term placement as patient becoming unsafe and more difficult to care for at home Reorient frequently to minimize delirium Continue melatonin Seroquel as needed for agitation Waiting for placement Constipation No documented bowel movement since 08/23/22. KUB:Mild to moderate colonic fecal retention. Continue colace, MiraLAX, Dulcolax suppository PRN Encouraged to ambulate BM on 08/30 per nurse s/p suppository Non-occlusive coronary artery disease: H/O Dilated cardiomyopathy Continue aspirin, carvedilol, simvastatin HTN Continue carvedilol, HCTZ, lisinopril Monitor, BP stable 149/78 Chronic bundle branch block: Chronic LBBB DVT Px Lovenox SQ Code Status DNR/DNI Dispo: awaiting placement A total of 25 minutes was spent with greater than 50% of that time personally viewing all current laboratory work and diagnostic imaging studies obtained in the ED. Additionally, I was able to view the patients past medication reconciliation and history with direct visualization in the patients chart. Included in the time above, a portion of that time was spent assessing the patient while discussing and collaborating with specialists, if necessary, and making medical decision making on treatment plan. All of the above was collaborated with Dr. Madrid. Please see addendum for further details. Admission and Anticipated Discharge Date Admission Date: August 13, 2022 Supervising Physician Co-Signing Physician Notes Patient is seen and examined at bedside. Pleasant during my encounter. Offers no complaints. Denies any chest pain, dyspnea, dizziness, nausea, abdominal pain. Waiting for placement Physical Exam: Vitals signs as noted above General Appearance:Moderately built and nourished, no apparent distress, Elderly Head: normocephalic, Atraumatic Eyes: normal inspection, EOMI Neck: supple, Trachea midline Respiratory/Chest: Normal breath sounds, CTA, No accessory muscle use Cardiovascular: S1, S2, No murmur Abdomen/GI:Soft, Non tender, mildly distended, bowel sounds present Extremities/Musculoskeletal:normal inspection, no edema Neurologic/Psych:AA, grossly no focal neurological deficits, +Dementia Skin: normal color, warm Dementia: Delirium in setting of Dementia Reorient frequently Continue melatonin Waiting for placement Constipation Continue bowel regimen I personally reviewed the record. Patient is interviewed and examined at bedside. Patient's care is coordinated with Mary Locke PA-C. Please refer to the documentation above for details of patient's presentation and for discussion of other issues. Subjective Patient was seen and examined in 352-2. Follow up delirium. He is sitting up in bedside chair and doing a puzzle. He offers no acute concerns. ROS unobtainable due to dementia. Review of Systems Review of Systems: All systems reviewed & are unremarkable except as noted in HPI & below Physical Exam Physical Exam: Gen: WD/WN, NAD, A&O x3 HEENT: Normocephalic, atraumatic, conjunctivae moist, sclerae anicteric, mucous membranes moist. Lung: Clear to Auscultation bilaterally, no wheezes/rales/rhonchi Heart: Regular rate, regular rhythm, no murmurs, rubs, or gallops Abdomen: Soft, NT, ND +BS x 4 Extremities: No edema Skin: Warm, no rash, negative turgor. Results & Data Results & Data ([facility]) Vital Signs (Past 12 Hours) Vital Signs Temp Pulse Resp BP Pulse Ox O2 Del Method 08/31/22 10:52 36.6 C 66 16 148/78 H 98 Room Air 08/31/22 07:55 56 L 16 113/58 L 97 Room Air Laboratory Results [facility] 08/31/22 07:45 Sodium 139 Potassium 3.8 Chloride 106 Carbon Dioxide 27 BUN 22 Creatinine 0.79 Glucose 91 Calcium 8.3 L Medications Administered Current Inpatient Medications Acetaminophen (Acetaminophen 325 Mg Tab) 650 mg PO Q4H PRN PRN Reason: Pain or Fever Stop: 09/12/22 16:51 Aspirin (Aspirin 81 Mg Ectab) 81 mg PO DAILY [facility] Stop: 09/13/22 08:59 Last Admin: 08/31/22 08:42 Dose: 81 mg Bisacodyl (Bisacodyl 10 Mg Supp) 10 mg HI DAILY PRN PRN Reason: Constipation Stop: 09/26/22 15:20 Carvedilol (Carvedilol 12.5 Mg Tab) 12.5 mg PO Q12H [facility] Stop: 09/12/22 18:59 Last Admin: 08/31/22 08:43 Dose: Not Given Docusate Sodium (Docusate Sodium 100 Mg Cap) 100 mg PO BID [facility] Stop: 09/12/22 20:59 Last Admin: 08/31/22 08:42 Dose: 100 mg Enoxaparin Sodium (Enoxaparin Inj 30 Mg/0.3 Ml Syr) 30 mg SQ Q24H [facility] Stop: 09/12/22 17:29 Last Admin: 08/30/22 18:24 Dose: 30 mg Ferrous Sulfate (Ferrous Sulfate 325 Mg Tab) 325 mg PO Q48H [facility] Stop: 09/13/22 08:59 Last Admin: 08/30/22 08:33 Dose: 325 mg Hydrochlorothiazide (Hydrochlorothiazide 25 Mg Tab) 12.5 mg PO MoTh [facility] Stop: 09/15/22 08:59 Last Admin: 08/30/22 08:34 Dose: 12.5 mg Lisinopril (Lisinopril 5 Mg Tab) 5 mg PO DAILY [facility] Stop: 09/16/22 08:59 Last Admin: 08/31/22 08:42 Dose: 5 mg Melatonin (Melatonin 3 Mg Tab) 9 mg PO HS [facility] Stop: 09/12/22 20:59 Last Admin: 08/30/22 19:59 Dose: 9 mg Multivitamins (Multivitamin Tab) 1 tab PO QAM [facility] Stop: 09/27/22 08:59 Last Admin: 08/31/22 08:42 Dose: 1 tab Olanzapine (Olanzapine 10 Mg/2.1 Ml Sdv) 2.5 mg IM Q4H PRN PRN Reason: Anxiety/Agitation Stop: 09/30/22 05:19 Ondansetron HCl (Ondansetron Inj 2 Mg/Ml 2 Ml Vial) 4 mg IV Q6H PRN PRN Reason: Nausea Stop: 09/12/22 16:51 Polyethylene Glycol (Polyethylene (Miralax) 17 Gm Pack) 17 gm PO DAILY [facility] Stop: 09/28/22 13:29 Last Admin: 08/31/22 08:43 Dose: Not Given Quetiapine Fumarate (Quetiapine Fumarate 25 Mg Tablet) 12.5 mg PO HS PRN PRN Reason: Agitation Stop: 09/12/22 16:51 Last Admin: 08/30/22 20:00 Dose: 12.5 mg Sennosides (Senna 8.6 Mg Tab) 8.6 mg PO [facility] Stop: 09/28/22 20:59 Last Admin: 08/30/22 20:00 Dose: 8.6 mg Simvastatin (Simvastatin 40 Mg Tab) 40 mg PO [facility] Stop: 09/26/22 20:59 Last Admin: 08/30/22 20:00 Dose: 40 mg Vitamin D (Cholecalciferol 1,000 Units 25 Mcg Tab) 2,000 units PO [facility] Stop: 09/13/22 08:59 Last Admin: 08/31/22 08:42 Dose: 2,000 units
[2022-08-31] MEDS: ENOXAPARIN INJ 30 MG/0.3 ML SYR SQ SCH (18:04)
[2022-08-31] MEDS: MELATONIN 3 MG TAB PO SCH (20:44)
[2022-08-31] MEDS: QUEtiapine FUMARATE 25 MG TABLET PO PRN (20:44)
[2022-08-31] MEDS: SENNA 8.6 MG TAB PO SCH (20:45)
[2022-08-31] MEDS: SIMVASTATIN 40 MG TAB PO SCH (20:45)
[2022-09-01] MEDS: carvediloL 12.5 MG TAB PO SCH ×2 (05:53→17:49)
[2022-09-01 08:37] LABS: BUN Creatinine Ratio 22.2 (10-20); Calcium 8.4 mg/dl (8.5-10.1); Creatinine Clr Calc Pharmacy 60.8 ml/min; Est GFR (African American) 89.3 ml/min; Est GFR (Non-African American) 77.1 ml/min; Potassium 3.6 mmol/L (3.5-5.1)
[2022-09-01] MEDS: lisinopril 5 MG TAB PO SCH (09:38)
[2022-09-01] MEDS: DOCUSATE SODIUM 100 MG CAP PO SCH ×2 (09:38→20:28)
[2022-09-01] MEDS: FERROUS SULFATE 325 MG TAB PO SCH (09:38)
[2022-09-01] MEDS: POLYETHYLENE (MIRALAX) 17 GM PACK PO SCH (09:38)
[2022-09-01] MEDS: ASPIRIN 81 MG ECTAB PO SCH (09:38)
[2022-09-01] MEDS: MULTIVITAMIN TAB PO SCH (09:38)
[2022-09-01] MEDS: CHOLECALCIFEROL 1,000 UNITS 25 MCG TAB PO SCH (09:38)
--- NOTE | 2022-09-01 12:44 | Hospitalist Progress Note ---
Date of Service September 01, 2022 Assessment & Plan (1) Delirium: (2) Dementia: Plan Patient is 87 y/o M with PMH dementia, dilated cardiomyopathy, nonobstructive CAD, HTN, HLD, chronic LBBB, BPH presented to ER for worsening cognitive function over past year with increased delirium. Dementia: Delirium in setting of Dementia -CT head:There is no hemorrhage, mass effect, or evidence of acute territorial ischemia by CT criteria. -UA Normal -Negative SARS-CoV-2. -CXR: No acute chest disease. Cardiomegaly is noted. Family requesting long-term placement as patient becoming unsafe and more difficult to care for at home Reorient frequently to minimize delirium Continue melatonin Seroquel as needed for agitation Waiting for placement Constipation No documented bowel movement since 08/23/22. KUB:Mild to moderate colonic fecal retention. Continue colace, MiraLAX, Dulcolax suppository PRN Encouraged to ambulate BM on 08/30 per nurse s/p suppository Non-occlusive coronary artery disease: H/O Dilated cardiomyopathy Continue aspirin, carvedilol, simvastatin HTN Continue carvedilol, HCTZ, lisinopril Monitor, BP stable 117/55 Chronic bundle branch block: Chronic LBBB DVT Px Lovenox SQ Code Status DNR/DNI Dispo: awaiting placement A total of 25 minutes was spent with greater than 50% of that time personally viewing all current laboratory work and diagnostic imaging studies obtained in the ED. Additionally, I was able to view the patients past medication reconciliation and history with direct visualization in the patients chart. Included in the time above, a portion of that time was spent assessing the patient while discussing and collaborating with specialists, if necessary, and making medical decision making on treatment plan. All of the above was collaborated with Dr. Reinoso. Please see addendum for further details. Admission and Anticipated Discharge Date Admission Date: August 13, 2022 Supervising Physician Co-Signing Physician Notes I have seen and examined the patient and have discussed the case with the provider above. I agree with the assessment and plan as stated. The patient is an 87-year-old man with dementia who presented to the ER with worsening cognitive function and increased delirium. Work-up noted above reveals no reversible issues. Agree with medical management listed above. Patient appears calm and cooperative today he is not oriented at baseline and is discussing people such as roommates that are not present. He states he needs to go to a distant family member's house, possibly a godson's house" [place]" and do a job for his family that is waiting for him. From a physical standpoint he is sitting in his chair moving all extremities equally, breathing with no acute distress. There is no gross focal neurologic deficit present. Skin is warm and dry. He just finished topical ice cream and is doing well tolerating food. We are continuing to await placement. Per case management notes Vicente Rosario has to formally declined the patient and [facility] is pushing back. New referrals were made today. He may be able to be excepted by Tuesday of this week. Continue current management pending safe disposition. DO Kemar. Subjective Patient was seen and examined in 352-2. Follow up delirium. He feels well this morning. Offers no complaints. ROS unreliable due to cognition. Review of Systems Review of Systems: All systems reviewed & are unremarkable except as noted in HPI & below Physical Exam Physical Exam: Gen: WD/WN, NAD, A&O x3 HEENT: Normocephalic, atraumatic, conjunctivae moist, sclerae anicteric, mucous membranes moist. Lung: Clear to Auscultation bilaterally, no wheezes/rales/rhonchi Heart: Regular rate, regular rhythm, no murmurs, rubs, or gallops Abdomen: Soft, NT, ND +BS x 4 Extremities: No edema Skin: Warm, no rash, negative turgor. Results & Data Results & Data Vital Signs (Past 12 Hours) Vital Signs Temp Pulse Pulse Resp BP Pulse Ox O2 Del Method 09/01/22 08:02 36.4 C L 77 17 117/55 L 98 Room Air 09/01/22 05:54 65 166/85 H Laboratory Results [facility] 09/01/22 07:48 Sodium 140 Potassium 3.6 Chloride 105 Carbon Dioxide 28 BUN 20 Creatinine 0.90 Glucose 140 H Calcium 8.4 L Medications Administered Current Inpatient Medications Acetaminophen (Acetaminophen 325 Mg Tab) 650 mg PO Q4H PRN PRN Reason: Pain or Fever Stop: 09/12/22 16:51 Aspirin (Aspirin 81 Mg Ectab) 81 mg PO DAILY [facility] Stop: 09/13/22 08:59 Last Admin: 09/01/22 09:38 Dose: 81 mg Bisacodyl (Bisacodyl 10 Mg Supp) 10 mg ND DAILY PRN PRN Reason: Constipation Stop: 09/26/22 15:20 Carvedilol (Carvedilol 12.5 Mg Tab) 12.5 mg PO Q12H [facility] Stop: 09/12/22 18:59 Last Admin: 09/01/22 05:53 Dose: 12.5 mg Docusate Sodium (Docusate Sodium 100 Mg Cap) 100 mg PO BID [facility] Stop: 09/12/22 20:59 Last Admin: 09/01/22 09:38 Dose: 100 mg Enoxaparin Sodium (Enoxaparin Inj 30 Mg/0.3 Ml Syr) 30 mg SQ Q24H [facility] Stop: 09/12/22 17:29 Last Admin: 08/31/22 18:04 Dose: 30 mg Ferrous Sulfate (Ferrous Sulfate 325 Mg Tab) 325 mg PO Q48H [facility] Stop: 09/13/22 08:59 Last Admin: 09/01/22 09:38 Dose: 325 mg Hydrochlorothiazide (Hydrochlorothiazide 25 Mg Tab) 12.5 mg PO MoTh [facility] Stop: 09/15/22 08:59 Last Admin: 08/30/22 08:34 Dose: 12.5 mg Lisinopril (Lisinopril 5 Mg Tab) 5 mg PO DAILY [facility] Stop: 09/16/22 08:59 Last Admin: 09/01/22 09:38 Dose: 5 mg Melatonin (Melatonin 3 Mg Tab) 9 mg PO HS [facility] Stop: 09/12/22 20:59 Last Admin: 08/31/22 20:44 Dose: 9 mg Multivitamins (Multivitamin Tab) 1 tab PO QAM [facility] Stop: 09/27/22 08:59 Last Admin: 09/01/22 09:38 Dose: 1 tab Olanzapine (Olanzapine 10 Mg/2.1 Ml Sdv) 2.5 mg IM Q4H PRN PRN Reason: Anxiety/Agitation Stop: 09/30/22 05:19 Ondansetron HCl (Ondansetron Inj 2 Mg/Ml 2 Ml Vial) 4 mg IV Q6H PRN PRN Reason: Nausea Stop: 09/12/22 16:51 Polyethylene Glycol (Polyethylene (Miralax) 17 Gm Pack) 17 gm PO DAILY [facility] Stop: 09/28/22 13:29 Last Admin: 09/01/22 09:38 Dose: 17 gm Quetiapine Fumarate (Quetiapine Fumarate 25 Mg Tablet) 12.5 mg PO HS PRN PRN Reason: Agitation Stop: 09/12/22 16:51 Last Admin: 08/31/22 20:44 Dose: 12.5 mg Sennosides (Senna 8.6 Mg Tab) 8.6 mg PO [facility] Stop: 09/28/22 20:59 Last Admin: 08/31/22 20:45 Dose: 8.6 mg Simvastatin (Simvastatin 40 Mg Tab) 40 mg PO [facility] Stop: 09/26/22 20:59 Last Admin: 08/31/22 20:45 Dose: 40 mg Vitamin D (Cholecalciferol 1,000 Units 25 Mcg Tab) 2,000 units PO [facility] Stop: 09/13/22 08:59 Last Admin: 09/01/22 09:38 Dose: 2,000 units
[2022-09-01] MEDS: ENOXAPARIN INJ 30 MG/0.3 ML SYR SQ SCH (17:49)
[2022-09-01] MEDS: MELATONIN 3 MG TAB PO SCH (20:27)
[2022-09-01] MEDS: SENNA 8.6 MG TAB PO SCH (20:27)
[2022-09-01] MEDS: QUEtiapine FUMARATE 25 MG TABLET PO PRN (20:27)
[2022-09-01] MEDS: SIMVASTATIN 40 MG TAB PO SCH (20:28)
[2022-09-02] MEDS: MULTIVITAMIN TAB PO SCH (08:08)
[2022-09-02] MEDS: CHOLECALCIFEROL 1,000 UNITS 25 MCG TAB PO SCH (08:08)
[2022-09-02] MEDS: ASPIRIN 81 MG ECTAB PO SCH (08:08)
[2022-09-02] MEDS: hydroCHLOROthiazide 25 MG TAB PO SCH (08:08)
[2022-09-02] MEDS: lisinopril 5 MG TAB PO SCH (08:08)
[2022-09-02] MEDS: POLYETHYLENE (MIRALAX) 17 GM PACK PO SCH (08:09)
[2022-09-02] MEDS: DOCUSATE SODIUM 100 MG CAP PO SCH ×2 (08:09→21:04)
[2022-09-02] MEDS: carvediloL 12.5 MG TAB PO SCH ×2 (08:09→18:28)
--- NOTE | 2022-09-02 16:58 | Hospitalist Progress Note ---
Date of Service September 02, 2022 Assessment & Plan (1) Delirium: (2) Dementia: Plan Patient is 87 y/o M with PMH dementia, dilated cardiomyopathy, nonobstructive CAD, HTN, HLD, chronic LBBB, BPH presented to ER for worsening cognitive function over past year with increased delirium. Dementia: Delirium in setting of Dementia -CT head:There is no hemorrhage, mass effect, or evidence of acute territorial ischemia by CT criteria. -UA Normal -Negative SARS-CoV-2. -CXR: No acute chest disease. Cardiomegaly is noted. Family requesting long-term placement as patient becoming unsafe and more difficult to care for at home Reorient frequently to minimize delirium Continue melatonin Seroquel as needed for agitation Waiting for placement Remained medically stable and does not have any delirium and/or any confusion or agitation Constipation No documented bowel movement since 08/23/22. KUB:Mild to moderate colonic fecal retention. Continue colace, MiraLAX, Dulcolax suppository PRN Encouraged to ambulate BM on 08/30 per nurse s/p suppository No acute abdominal symptoms Non-occlusive coronary artery disease: H/O Dilated cardiomyopathy Continue aspirin, carvedilol, simvastatin Denies any cardiac symptoms HTN Continue carvedilol, HCTZ, lisinopril Monitor, BP stable 117/55 Chronic bundle branch block: Chronic LBBB DVT Px Lovenox SQ Code Status DNR/DNI Dispo: awaiting placement Admission and Anticipated Discharge Date Admission Date: August 13, 2022 Subjective 09/02/2022 The patient was seen and examined in medical floor He has been stable and denies any significant symptoms Awaiting placement Review of Systems Review of Systems: All systems reviewed and are unremarkable except as noted below Physical Exam Physical Exam: Sitting on a chair without any acute distress Constitutional: well developed, well nourished and + obese; not ill appearing Eyes: PERRL, conjunctivae normal, anicteric sclerae ENMT: external ear and nose normal, oropharynx normal Neck: trachea midline, no thyromegaly Respiratory: no respiratory distress Auscultation: lungs clear to auscultation bilaterally Cardiovascular: Rate/Rhythm: regular rate and regular rhythm; not tachycardic Heart Sounds: normal S1 and normal S2; no murmur Extremities: no edema Gastrointestinal (Abdomen): Inspection/Auscultation: normal bowel sounds; abdomen not distended Percussion/Palpation: abdomen soft; abdomen nontender Musculoskeletal: No acute arthritis involving any joint Neurologic: Alert and awake. No focal neurodeficit Lymphatic: no cervical or axillary lymphadenopathy Results & Data Results & Data Vital Signs (Past 12 Hours) Vital Signs Temp Pulse Pulse Resp BP Pulse Ox O2 Del Method 09/02/22 14:21 36.8 C 74 16 151/72 H 96 Room Air 09/02/22 08:07 36.4 C L 72 16 166/78 H 95 Room Air Medications Administered Current Inpatient Medications Acetaminophen (Acetaminophen 325 Mg Tab) 650 mg PO Q4H PRN PRN Reason: Pain or Fever Stop: 09/12/22 16:51 Aspirin (Aspirin 81 Mg Ectab) 81 mg PO DAILY DOMINIC Stop: 09/13/22 08:59 Last Admin: 09/02/22 08:08 Dose: 81 mg Bisacodyl (Bisacodyl 10 Mg Supp) 10 mg [place] DAILY PRN PRN Reason: Constipation Stop: 09/26/22 15:20 Carvedilol (Carvedilol 12.5 Mg Tab) 12.5 mg PO Q12H DOMINIC Stop: 09/12/22 18:59 Last Admin: 09/02/22 08:09 Dose: 12.5 mg Docusate Sodium (Docusate Sodium 100 Mg Cap) 100 mg PO BID DOMINIC Stop: 09/12/22 20:59 Last Admin: 09/02/22 08:09 Dose: 100 mg Enoxaparin Sodium (Enoxaparin Inj 30 Mg/0.3 Ml Syr) 30 mg SQ Q24H DOMINIC Stop: 09/12/22 17:29 Last Admin: 09/01/22 17:49 Dose: 30 mg Ferrous Sulfate (Ferrous Sulfate 325 Mg Tab) 325 mg PO Q48H DOMINIC Stop: 09/13/22 08:59 Last Admin: 09/01/22 09:38 Dose: 325 mg Hydrochlorothiazide (Hydrochlorothiazide 25 Mg Tab) 12.5 mg PO MoTh DOMINIC Stop: 09/15/22 08:59 Last Admin: 09/02/22 08:08 Dose: 12.5 mg Lisinopril (Lisinopril 5 Mg Tab) 5 mg PO DAILY DOMINIC Stop: 09/16/22 08:59 Last Admin: 09/02/22 08:08 Dose: 5 mg Melatonin (Melatonin 3 Mg Tab) 9 mg PO HS DOMINIC Stop: 09/12/22 20:59 Last Admin: 09/01/22 20:27 Dose: 9 mg Multivitamins (Multivitamin Tab) 1 tab PO QA DOMINIC Stop: 09/27/22 08:59 Last Admin: 09/02/22 08:08 Dose: 1 tab Olanzapine (Olanzapine 10 Mg/2.1 Ml Sdv) 2.5 mg IM Q4H PRN PRN Reason: Anxiety/Agitation Stop: 09/30/22 05:19 Ondansetron HCl (Ondansetron Inj 2 Mg/Ml 2 Ml Vial) 4 mg IV Q6H PRN PRN Reason: Nausea Stop: 09/12/22 16:51 Polyethylene Glycol (Polyethylene (Miralax) 17 Gm Pack) 17 gm PO DAILY DOMINIC Stop: 09/28/22 13:29 Last Admin: 09/02/22 08:09 Dose: 17 gm Quetiapine Fumarate (Quetiapine Fumarate 25 Mg Tablet) 12.5 mg PO HS PRN PRN Reason: Agitation Stop: 09/12/22 16:51 Last Admin: 09/01/22 20:27 Dose: 12.5 mg Sennosides (Senna 8.6 Mg Tab) 8.6 mg PO HS DOMINIC Stop: 09/28/22 20:59 Last Admin: 09/01/22 20:27 Dose: 8.6 mg Simvastatin (Simvastatin 40 Mg Tab) 40 mg PO HS DOMINIC Stop: 09/26/22 20:59 Last Admin: 09/01/22 20:28 Dose: 40 mg Vitamin D (Cholecalciferol 1,000 Units 25 Mcg Tab) 2,000 units PO QA DOMINIC Stop: 09/13/22 08:59 Last Admin: 09/02/22 08:08 Dose: 2,000 units
[2022-09-02] MEDS: ENOXAPARIN INJ 30 MG/0.3 ML SYR SQ SCH (18:27)
[2022-09-02] MEDS: MELATONIN 3 MG TAB PO SCH (21:04)
[2022-09-02] MEDS: QUEtiapine FUMARATE 25 MG TABLET PO PRN (21:05)
[2022-09-02] MEDS: SENNA 8.6 MG TAB PO SCH (21:05)
[2022-09-02] MEDS: SIMVASTATIN 40 MG TAB PO SCH (21:06)
--- NOTE | 2022-09-03 09:24 | Hospitalist Progress Note ---
Date of Service September 03, 2022 Assessment & Plan (1) Delirium: (2) Dementia: Plan Patient is 87 y/o M with PMH dementia, dilated cardiomyopathy, nonobstructive CAD, HTN, HLD, chronic LBBB, BPH presented to ER for worsening cognitive function over past year with increased delirium. Dementia: Delirium in setting of Dementia -CT head:There is no hemorrhage, mass effect, or evidence of acute territorial ischemia by CT criteria. -UA Normal -Negative SARS-CoV-2. -CXR: No acute chest disease. Cardiomegaly is noted. Family requesting long-term placement as patient becoming unsafe and more difficult to care for at home Reorient frequently to minimize delirium Continue melatonin Seroquel as needed for agitation Remains stable without any significant symptoms Except that at [facility] and will be discharged this afternoon Constipation No documented bowel movement since 08/23/22. KUB:Mild to moderate colonic fecal retention. Continue colace, MiraLAX, Dulcolax suppository PRN Encouraged to ambulate BM on 08/30 per nurse s/p suppository No acute abdominal symptoms Resolved Non-occlusive coronary artery disease: H/O Dilated cardiomyopathy Continue aspirin, carvedilol, simvastatin Denies any cardiac symptoms HTN Continue carvedilol, HCTZ, lisinopril Monitor, BP stable 117/55 Blood pressure is controlled but today it is on the upper side at 164/78 Chronic bundle branch block: Chronic LBBB DVT Px Lovenox SQ Code Status DNR/DNI Dispo: [facility], personal-senior care Admission and Anticipated Discharge Date Admission Date: August 13, 2022 Subjective 09/02/2022 The patient was seen and examined in medical floor He has been stable and denies any significant symptoms Awaiting placement 09/03/2022 The patient was seen and examined in medical floor He is pleasantly confused today but denies any significant symptoms He will be discharged out of the hospital today Review of Systems Review of Systems: All systems reviewed and are unremarkable except as noted below Physical Exam Physical Exam: Sitting on a chair without any acute distress Constitutional: well developed, well nourished and + obese; not ill appearing Eyes: PERRL, conjunctivae normal, anicteric sclerae ENMT: external ear and nose normal, oropharynx normal Neck: trachea midline, no thyromegaly Respiratory: no respiratory distress Auscultation: lungs clear to auscultation bilaterally Cardiovascular: Rate/Rhythm: regular rate and regular rhythm; not tachycardic Heart Sounds: normal S1 and normal S2; no murmur Extremities: no edema Gastrointestinal (Abdomen): Inspection/Auscultation: normal bowel sounds; abdomen not distended Percussion/Palpation: abdomen soft; abdomen nontender Musculoskeletal: No acute arthritis involving any joint Neurologic: normal touch/pain/proprioception, moves all extremities and + confused (Pleasantly confused); no focal motor deficits Lymphatic: no cervical or axillary lymphadenopathy Results & Data Results & Data Vital Signs (Past 12 Hours) Vital Signs Temp Pulse Pulse Resp BP Pulse Ox O2 Del Method 09/03/22 07:24 36.5 C 70 18 164/78 H 98 Room Air 09/02/22 21:37 36.7 C 70 18 129/67 96 Room Air Medications Administered Current Inpatient Medications Acetaminophen (Acetaminophen 325 Mg Tab) 650 mg PO Q4H PRN PRN Reason: Pain or Fever Stop: 09/12/22 16:51 Last Admin: 09/02/22 21:05 Dose: 650 mg Aspirin (Aspirin 81 Mg Ectab) 81 mg PO DAILY DOMINIC Stop: 09/13/22 08:59 Last Admin: 09/03/22 09:25 Dose: 81 mg Bisacodyl (Bisacodyl 10 Mg Supp) 10 mg [place] DAILY PRN PRN Reason: Constipation Stop: 09/26/22 15:20 Carvedilol (Carvedilol 12.5 Mg Tab) 12.5 mg PO Q12H DOMINIC Stop: 09/12/22 18:59 Last Admin: 09/03/22 09:25 Dose: 12.5 mg Docusate Sodium (Docusate Sodium 100 Mg Cap) 100 mg PO BID DOMINIC Stop: 09/12/22 20:59 Last Admin: 09/03/22 09:25 Dose: 100 mg Enoxaparin Sodium (Enoxaparin Inj 30 Mg/0.3 Ml Syr) 30 mg SQ Q24H DOMINIC Stop: 09/12/22 17:29 Last Admin: 09/02/22 18:27 Dose: 30 mg Ferrous Sulfate (Ferrous Sulfate 325 Mg Tab) 325 mg PO Q48H DOMINIC Stop: 09/13/22 08:59 Last Admin: 09/03/22 09:25 Dose: 325 mg Hydrochlorothiazide (Hydrochlorothiazide 25 Mg Tab) 12.5 mg PO MoTh DOMINIC Stop: 09/15/22 08:59 Last Admin: 09/02/22 08:08 Dose: 12.5 mg Lisinopril (Lisinopril 5 Mg Tab) 5 mg PO DAILY DOMINIC Stop: 09/16/22 08:59 Last Admin: 09/03/22 09:25 Dose: 5 mg Melatonin (Melatonin 3 Mg Tab) 9 mg PO HS DOMINIC Stop: 09/12/22 20:59 Last Admin: 09/02/22 21:04 Dose: 9 mg Multivitamins (Multivitamin Tab) 1 tab PO QAM DOMINIC Stop: 09/27/22 08:59 Last Admin: 09/03/22 09:25 Dose: 1 tab Olanzapine (Olanzapine 10 Mg/2.1 Ml Sdv) 2.5 mg IM Q4H PRN PRN Reason: Anxiety/Agitation Stop: 09/30/22 05:19 Ondansetron HCl (Ondansetron Inj 2 Mg/Ml 2 Ml Vial) 4 mg IV Q6H PRN PRN Reason: Nausea Stop: 09/12/22 16:51 Polyethylene Glycol (Polyethylene (Miralax) 17 Gm Pack) 17 gm PO DAILY DOMINIC Stop: 09/28/22 13:29 Last Admin: 09/03/22 09:26 Dose: 17 gm Quetiapine Fumarate (Quetiapine Fumarate 25 Mg Tablet) 12.5 mg PO HS PRN PRN Reason: Agitation Stop: 09/12/22 16:51 Last Admin: 09/02/22 21:05 Dose: 12.5 mg Sennosides (Senna 8.6 Mg Tab) 8.6 mg PO HS DOMINIC Stop: 09/28/22 20:59 Last Admin: 09/02/22 21:05 Dose: 8.6 mg Simvastatin (Simvastatin 40 Mg Tab) 40 mg PO HS DOMINIC Stop: 09/26/22 20:59 Last Admin: 09/02/22 21:06 Dose: 40 mg Vitamin D (Cholecalciferol 1,000 Units 25 Mcg Tab) 2,000 units PO QAM DOMINIC Stop: 09/13/22 08:59 Last Admin: 09/03/22 09:25 Dose: 2,000 units
[2022-09-03] MEDS: ASPIRIN 81 MG ECTAB PO SCH (09:25)
[2022-09-03] MEDS: lisinopril 5 MG TAB PO SCH (09:25)
[2022-09-03] MEDS: DOCUSATE SODIUM 100 MG CAP PO SCH (09:25)
[2022-09-03] MEDS: FERROUS SULFATE 325 MG TAB PO SCH (09:25)
[2022-09-03] MEDS: CHOLECALCIFEROL 1,000 UNITS 25 MCG TAB PO SCH (09:25)
[2022-09-03] MEDS: MULTIVITAMIN TAB PO SCH (09:25)
[2022-09-03] MEDS: carvediloL 12.5 MG TAB PO SCH (09:25)
[2022-09-03] MEDS: POLYETHYLENE (MIRALAX) 17 GM PACK PO SCH (09:26)
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
== END 2022-09-03 15:33 | disposition home or self-care (01) | DRG 884 ==
LOC: ED 11:06 → SUATTDRO 15:16 → 3W 15:16

== ENCOUNTER 2025-01-18 21:55 | Inpatient (IN) ==
[2025-01-18] MEDS: SODIUM CHLORIDE 0.9% 1,000 ML IV SCH (22:37)
[2025-01-18 22:52] LABS: Hematocrit (blood only) 35.2 % (42.0-52.0); Hemoglobin 11.6 g/dl (14.0-18.0); Immature Granulocytes # (auto) 0.12 K/uL (0.01-0.20); Immature Granulocytes % (auto) 0.7 %; Mean Corpuscular Hemoglobin 29.7 pg (25.0-34.0); Mean Corpuscular Volume 90.3 fL (80.0-100.0); Platelet Count 220 K/uL (130-400); RDW Standard Deviation 47.6 fL (36.4-46.3); Red Blood Count 3.90 M/uL (4.70-6.10); White Blood Count 16.20 K/ul (4.8-10.8)
[2025-01-18] MEDS ORDERED: VANCOMYCIN CONSULT ACTIVE PRN (23:07)
[2025-01-18 23:09] LABS: Alanine Aminotransferase 7.0 U/L (7-52); Albumin Globulin Ratio 1.2 (0.9-2); Alkaline Phosphatase 99.0 U/L (34-104); Anion Gap 11.0 (3-11); Bilirubin,Total 0.3 mg/dl (0.2-1.0); Blood Urea Nitrogen 56.0 mg/dl (6-23); Calcium 8.2 mg/dl (8.6-10.3); Carbon Dioxide 27.0 mmol/L (21-32); Chloride 100.0 mmol/L (98-107); Creatine Kinase 68.0 U/L (30-223); Creatinine Clr Calc Pharmacy 17.7 ml/min; Globulin 3.1 gm/dl (2.5-4.0); Glucose 124.0 mg/dl (70-99(Fasting)); Magnesium 2.5 mg/dl (1.7-2.4); Potassium 4.4 mmol/L (3.5-5.1); Sodium 138.0 mmol/L (136-145); Total Protein 6.8 gm/dl (6.0-8.3)
[2025-01-18 23:24] LABS: Thyroid Stimulating Hormone 5.301 uIu/ml (0.300-4.500)
[2025-01-18] MEDS: CEFEPIME 2000MG 2,000 MG/20 ML SYR IV STA (23:36)
[2025-01-18] MEDS: SODIUM CHLORIDE 0.9% 1,000 ML IV ONE (23:37)
[2025-01-19 00:28] LABS: Appearance Urine Turbid (Clear); Bacteria Urine Automated None Seen (None Seen); Cast Urine Automated >20 /lpf (0-2); Epithelial Cell Urine Auto 0-2 /hpf (0-2); Glucose Urine UA Negative (Negative); WBC Urine Automated >50 /hpf (0-5)
--- NOTE | 2025-01-19 00:37 | CT Scan Report ---
EXAM: CT head/brain wo con CLINICAL HISTORY: ams TECHNIQUE: Multiple axial images are obtained from the skull base to the vertex without contrast. CT scan was performed according to ALARA (as low as reasonable achievable). COMPARISON: None. FINDINGS: Linear Encephalomalacia is noted involving right periventricular white matter extending up to the putamen.- sequelae of prior insult likely. There is cerebral atrophy. No evidence of space occupying lesion, hemorrhage, edema, mass effect, midline shift, extra axial collection, or hydrocephalus is noted. Basal cisterns are symmetric and normal in size and configuration. There are scattered periventricular hypodensities as can be seen with chronic microvascular ischemic changes. The hamilton-white matter differentiation is preserved. Visualized paranasal sinuses and mastoid air cells are well aerated. Orbital contents are within normal limits. Bony structures are intact. IMPRESSION: 1. No evidence of acute intracranial abnormality is demonstrated. 2. Chronic microvascular ischemic changes. 3. Cerebral atrophy. 4. Linear encephalomalacia is noted involving right periventricular white matter extending up to the putamen.- sequelae of prior insult likely. MRI brain is suggested for better evaluation if clinically indicated. Electronically signed by Bryon Baker 01-19-2025 12:36 AM
[2025-01-19] MEDS: VANCOMYCIN HCL 1,500 MG in SODIUM CHLORIDE 0.9% 500 ML IV ONE (00:46)
--- NOTE | 2025-01-19 01:06 | CT Scan Report ---
EXAM: CT abd pelvis wo con CLINICAL HISTORY: ROGE TECHNIQUE: Contiguous axial images were obtained from the level of the diaphragm to the pubic symphysis without intravenous or oral contrast. Coronal and sagittal reconstructions were likewise performed and indicated to increase the sensitivity for detecting clinically relevant pathology. CT scan was performed according to ALARA (as low as reasonable achievable). COMPARISON: None. FINDINGS: The visualized lung bases are clear. Sliding hiatus hernia noted. Evaluation of the abdominal and pelvic visceral organs is limited without intravenous contrast. The unenhanced liver, spleen, pancreas, and adrenal glands are grossly unremarkable. The gallbladder is present. The kidneys are normal in size and attenuation without obvious calcification. There is no hydronephrosis . bilateral perinephric stranding. The ureters are normal in caliber. The urinary bladder is normal in contour. Pelvic viscera are grossly unremarkable. No adenopathy or fluid collections are seen. No evidence of focal or diffuse bowel wall thickening or evidence of bowel obstruction is seen. The appendix is visualized in the right lower quadrant and appears within normal limits. Colonic fecal and gaseous distension- severe constipation. Concentric wall thickening is noted involving rectum- suggestive of stercoral colitis. The aorta is normal in caliber. No aggressive appearing osseous lesions are identified. Diffuse atherosclerotic calcification is noted involving aorta iliac arteries. IMPRESSION: 1. Mild bilateral perinephric fat stranding. 2. Colonic fecal and gaseous distension- severe constipation. 3. Concentric wall thickening is noted involving rectum- suggestive of proctitis. 4. Sliding hiatus hernia noted. Electronically signed by Bryon Baker 01-19-2025 01:06 AM
[2025-01-19 01:13] LABS: Chlamydia pneumoniae PCR Not Detected (NotDetected); Coronavirus 229E PCR Not Detected (NotDetected); Coronavirus CoV-2 (COVID19)PCR Not Detected (NotDetected); Coronavirus HKU1 PCR Not Detected (NotDetected); Coronavirus NL63 PCR Not Detected (NotDetected); Coronavirus OC43PCR Not Detected (NotDetected); Human Metapneumovirus PCR Not Detected (NotDetected); Parainfluenza Virus 1 PCR Not Detected (NotDetected); Parainfluenza Virus 2 PCR Not Detected (NotDetected); Parainfluenza Virus 3 PCR Not Detected (NotDetected); Parainfluenza Virus 4 PCR Not Detected (NotDetected); Respiratory Syncytial VirusPCR Not Detected (NotDetected); Rhinovirus/Enterovirus PCR Not Detected (NotDetected)
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
[2025-01-19] MEDS: metroNIDAZOLE 500 MG/100 ML BAG IV STA (01:30)
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
--- NOTE | 2025-01-19 02:41 | XRay Report ---
Exam(s): XR CXR 1 VIEW EXAM: XR Chest, 1 View CLINICAL HISTORY: weakness. TECHNIQUE: Frontal view of the chest. COMPARISON: Portable chest single view 09/12/2023 FINDINGS: Lungs: No focal airspace consolidation. Somewhat coarse presumed senescent interstitial markings, stable. The pulmonary vasculature is unremarkable. Pleural space: Unremarkable. No pneumothorax. No large pleural effusion. Heart: Unremarkable. No cardiomegaly. Mediastinum: No significant abnormality identified. The trachea is midline. Bones/joints: Unremarkable. No acute fracture. IMPRESSION: No acute cardiopulmonary process or significant alteration from the prior examination. Electronically signed by: Reji Lobato MD 01/19/25 02:40 AM
[2025-01-19] MEDS ORDERED: ACETAMINOPHEN 325 MG TAB PO PRN (02:46)
[2025-01-19] MEDS ORDERED: NITROGLYCERIN SL 0.4 MG/TAB TAB SL PRN (02:46)
[2025-01-19] MEDS: SODIUM CHLORIDE 0.9% 1,000 ML IV SCH (04:33)
[2025-01-19 08:41] LABS: Hematocrit (blood only) 29.6 % (42.0-52.0); Hemoglobin 10.2 g/dl (14.0-18.0); Immature Granulocytes # (auto) 0.03 K/uL (0.01-0.20); Immature Granulocytes % (auto) 0.3 %; Mean Corpuscular Hemoglobin 30.8 pg (25.0-34.0); Mean Corpuscular Volume 89.4 fL (80.0-100.0); Platelet Count 181 K/uL (130-400); RDW Standard Deviation 46.0 fL (36.4-46.3); Red Blood Count 3.31 M/uL (4.70-6.10); White Blood Count 8.76 K/ul (4.8-10.8)
[2025-01-19] MEDS: FERROUS SULFATE 325 MG TAB PO SCH (08:57)
[2025-01-19] MEDS: FAMOTIDINE 20 MG TAB PO SCH (08:57)
[2025-01-19] MEDS: CEROVITE ADV FORMULA TAB PO SCH (08:57)
[2025-01-19] MEDS: ASPIRIN 81 MG CHEW PO SCH (08:57)
[2025-01-19] MEDS: PIPERACILLIN/TAZOBACTAM 4.5 GM/100 ML BAG IV SCH ×2 (08:58→16:45)
[2025-01-19] MEDS: MENTHOL-ZINC OXIDE 360 APPLN/120 GM TUBE EXT SCH (08:58)
[2025-01-19] MEDS: LACTULOSE SYRUP 20 GM/30 ML UDC PO ONE (08:58)
[2025-01-19] MEDS: DIVALPROEX SODIUM SPRINKLE/DEL-REL 125 MG CAP PO SCH (08:58)
[2025-01-19] MEDS: TAMSULOSIN HCL 0.4 MG CAP PO SCH (08:59)
[2025-01-19] MEDS: HEPARIN SOD 5,000 UNIT/0.5 ML VIAL SQ SCH (08:59)
[2025-01-19 09:17] LABS: Anion Gap 9.0 (3-11); Blood Urea Nitrogen 46.0 mg/dl (6-23); Calcium 7.6 mg/dl (8.6-10.3); Carbon Dioxide 26.0 mmol/L (21-32); Chloride 107.0 mmol/L (98-107); Creatinine Clr Calc Pharmacy 26.2 ml/min; Glucose 93.0 mg/dl (70-99(Fasting)); Magnesium 2.2 mg/dl (1.7-2.4); Potassium 3.7 mmol/L (3.5-5.1); Sodium 142.0 mmol/L (136-145)
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
--- NOTE | 2025-01-19 12:11 | Electrocardiogram Report ---
Test Reason : Blood Pressure : */* mmHG Vent. Rate : 53 BPM Atrial Rate : 53 BPM P-R Int : 214 ms QRS Dur : 150 ms QT Int : 520 ms P-R-T Axes : * -8 -22 degrees QTcB Int : 487 ms Sinus bradycardia with 1st degree A-V block Left bundle branch block Abnormal ECG When compared with ECG of 25-Mar-2023 05:51, IN interval has increased Nonspecific T wave abnormality now evident in Inferior leads Confirmed by Alex Resendiz ([id number]) on 01/19/2025 12:11:04 PM Referred By: REFERRED SELF Confirmed By: Alex Resendiz
--- NOTE | 2025-01-19 13:33 | Pharmacy Report ---
Pharmacy PK ABX Note - Date of Service January 19, 2025 - Assessment and Plan Assessment 89 year old M with PMH significant for nonobstructive CAD, CVA, anemia, severe dementia, BPH, history of polymyalgia rheumatica, osteoarthritis, and prostate cancer was brought to the ED from [facility] due to unresponsiveness/altered mental status. Leukocytosis of 16.2. ROGE. CT abd/pelvis revealed mild bilateral perinephric fat stranding, severe constipation, possible proctitis. Patient was started on empiric antibiotics, vancomycin + pip/tazo. Urine and BC pending Respiratory PCR panel negative Plan Vancomycin * Loading dose: 1500 mg IV x 1 * Give an additional 1000 mg IV 8/2 @ 1400 * Regimen is predicted to achieve target AUC/ALPESH of 400-600 mg/L.hr * Random level ordered for 8/3 AM to guide further dosing. Pharmacy will continue to follow and will adjust dose/frequency as necessary. Thank you.
[2025-01-19] MEDS: VANCOMYCIN HCL 1,000 MG/270 ML BAG IV ONE (13:39)
--- NOTE | 2025-01-19 14:34 | Hospitalist Progress Note ---
Date of Service January 19, 2025 Assessment & Plan (1) AMS (altered mental status): Plan: 89-year-old male with past medical history significant for nonobstructive CAD, history of dilated cardiomyopathy with return to normal systolic function, chronic left bundle branch block, history of CVA, history of anemia, history of hypertension history of severe dementia, history of BPH, history of polymyalgia rheumatica, osteoarthritis, history of prostate cancer currently living at dementia unit at [facility] was brought in because of unresponsiveness. Seems around 8 PM when staff went to wake him up he was difficult to arouse. Was very lethargic. Seems unresponsive. EMS was called. For EMS patient was bradycardic heart rates upper 40s. He was more awake for EMS. His blood pressure was soft. Atropine was not given . Pacer pads was pl aced on and patient was brought to the ER. Acute UTI Metabolic encephalopathy Patient with history of dementia was brought to the hospital with lethargy/unresponsive episode. Leukocytosis present on admission Urinalysis suggestive of infection CT abdomen pelvis does mild bilateral perinephric fat stranding Continue on empiric vancomycin and Zosyn; follow-up on final culture results Continue IV fluids Constipation and proctitis seen on CT abdomen/pelvis On antibiotics as above Magnesium citrate bisacodyl SC Bradycardia Patient heart rate in 40s for EMS Currently heart rates are okay Hold his Coreg, memantine and donezepil Telemetry History of nonobstructive CAD Continue aspirin and statin Holding beta-john for bradycardia Severe dementia Oriented to name only Hold memantine and donezepil for bradycardia Continue Seroquel Monitor for delirium BPH On Flomax Monitor for urinary retention ROGE Presented with creatinine of 2.9 Creatinine was 0.6 in Holding Lasix, lisinopril and hydrochlorothiazide Avoid nephrotoxic agents Getting fluids Hypertension Holding Coreg, lisinopril and hydrochlorothiazide History of dysphagia And pured diet Ambulatory dysfunction Ambulates with walker PT OT when stable History of left bundle branch block History of CVA On aspirin and statin DVT prophylaxis Heparin subcu Disposition Telemetry Discussed with patient's brother over the phone; CODE STATUS is DNR/DNI Please note the above document was generated using voice recognition software. It may contain grammatical, syntax or spelling errors. Any formal questions or concerns about the content, text or information contained within the body of this dictation should be directly addressed to the provider for clarification Admission and Anticipated Discharge Date Admission Date: January 19, 2025 Supervising Physician Co-Signing Physician Notes Attending attestation: Case reviewed with the advanced practitioner. I have personally performed a history and physical examination on the patient. I have reviewed the advanced practitioner's documentation on the date of service referenced in note, and I agree with, and take responsibility for the plan of care. EKG, telemetry reviewed, sinus bradycardia in the 50s with chronic left bundle branch block. -Hold Carvedilol no indication for emergent temporary pacemaker at present. I spent a total of 20 minutes coordinating, documenting, and providing care for this patient excluding time spent in the performance of separately billed services or time spent by another provider. Julian Rodarte, Subjective Patient seen and examined at bedside. He is sleeping; awake by noxious stimuli Continues to be delirious Vital signs appear stable Review of Systems Review of Systems: All systems reviewed & are unremarkable except as noted in Subjective Physical Exam Physical Exam: Constitutional: Sleeping; appears lethargic. Overqualified noxious stimuli. Respiratory: Bilateral vesicular breath sound Cardiovascular: RRR, no murmur, no edema Vessels: no JVD or carotid bruit Chest: normal inspection of chest Abdomen: normal bowel sounds, soft, nontender, no hepatosplenomegaly Musculoskeletal: no cyanosis or clubbing, extremities motor strength 5/5 Skin: no rashes, warm and dry normal turgor Neurologic: PERRL, withdraws to pain in all extremities Results & Data Results & Data Vital Signs (Past 12 Hours) Vital Signs Temp Pulse Pulse Pulse Resp BP BP 01/19/25 13:36 59 L 21 116/53 L 01/19/25 08:54 77 14 124/55 L 01/19/25 06:28 63 20 120/59 L 01/19/25 04:41 71 21 116/52 L 01/19/25 04:13 74 16 107/62 01/19/25 02:59 01/19/25 02:59 36.8 C 66 18 112/53 L 01/19/25 02:46 01/19/25 02:30 71 19 128/69 Pulse Ox Pulse Ox O2 Del Method O2 Del Method 01/19/25 13:36 97 Room Air 01/19/25 08:54 99 Room Air 01/19/25 06:28 95 Room Air 01/19/25 04:41 98 Room Air 01/19/25 04:13 97 Room Air 01/19/25 02:59 Room Air 01/19/25 02:59 97 Room Air 01/19/25 02:46 99 Room Air 01/19/25 02:30 98 Room Air (1) AMS (altered mental status) Altered mental status type: unspecified Qualified Code(s): R41.82 - Altered mental status, unspecified
[2025-01-19] MEDS: MAGNESIUM CITRATE 296 ML/BTL PO STA (18:27)
[2025-01-19] MEDS: SIMVASTATIN 40 MG TAB PO SCH (20:16)
[2025-01-19] MEDS: MELATONIN 3 MG TAB PO SCH (20:16)
[2025-01-20 05:03] LABS: Hematocrit (blood only) 32.2 % (42.0-52.0); Hemoglobin 10.4 g/dl (14.0-18.0); Immature Granulocytes # (auto) 0.02 K/uL (0.01-0.20); Immature Granulocytes % (auto) 0.3 %; Mean Corpuscular Hemoglobin 29.7 pg (25.0-34.0); Mean Corpuscular Volume 92.0 fL (80.0-100.0); Platelet Count 196 K/uL (130-400); RDW Standard Deviation 48.0 fL (36.4-46.3); Red Blood Count 3.50 M/uL (4.70-6.10); White Blood Count 7.94 K/ul (4.8-10.8)
[2025-01-20 05:15] LABS: Anion Gap 6.0 (3-11); Calcium 7.7 mg/dl (8.6-10.3); Carbon Dioxide 26.0 mmol/L (21-32); Chloride 112.0 mmol/L (98-107); Potassium 4.4 mmol/L (3.5-5.1); Sodium 144.0 mmol/L (136-145)
[2025-01-20 05:20] LABS: Blood Urea Nitrogen 30.0 mg/dl (6-23); Creatinine Clr Calc Pharmacy 41.2 ml/min; Glucose 82.0 mg/dl (70-99(Fasting))
--- NOTE | 2025-01-20 08:03 | Hospitalist Progress Note ---
Date of Service January 20, 2025 Assessment & Plan (1) AMS (altered mental status): Plan: 89-year-old male with past medical history significant for nonobstructive CAD, history of dilated cardiomyopathy with return to normal systolic function, chronic left bundle branch block, history of CVA, history of anemia, history of hypertension history of severe dementia, history of BPH, history of polymyalgia rheumatica, osteoarthritis, history of prostate cancer currently living at dementia unit at [facility] was brought in because of unresponsiveness. Seems around 8 PM when staff went to wake him up he was difficult to arouse. Was very lethargic. Seems unresponsive. EMS was called. For EMS patient was bradycardic heart rates upper 40s. He was more awake for EMS. His blood pressure was soft. Atropine was not given . Pacer pads was pl aced on and patient was brought to the ER. Acute UTI Metabolic encephalopathy Patient with history of dementia was brought to the hospital with lethargy/unresponsive episode. Leukocytosis present on admission Urinalysis suggestive of infection CT abdomen pelvis does mild bilateral perinephric fat stranding Blood cultureno growth in 24 hours Urine culture is pending Discontinue vancomycin; continue on Zosyn. Will follow-up on final culture results; plan to treat for 7 to 10 days of antibiotics ROGE Presented with creatinine of 2.9 Creatinine was 0.6 in Holding Lasix, lisinopril and hydrochlorothiazide Creatinine Improved with IV hydration; IV fluids changed to D5 Constipation and proctitis seen on CT abdomen/pelvis On antibiotics as above given Magnesium citrate with BM bisacodyl [place] daily Plan to place him on daily Miralax at discharge. Bradycardia Patient heart rate in 40s for EMS Hold Coreg, memantine and donezepil Monitor Telemetry History of nonobstructive CAD Continue aspirin and statin Holding beta-john for bradycardia Severe dementia Oriented to name only Hold memantine and donezepil for bradycardia Continue Seroquel Monitor for delirium BPH On Flomax Monitor for urinary retention Hypertension Holding Coreg, lisinopril and hydrochlorothiazide History of dysphagia And pured diet Ambulatory dysfunction Ambulates with walker PT OT when stable History of left bundle branch block History of CVA On aspirin and statin DVT prophylaxis Heparin subcu Disposition Telemetry Discussed with patient's brother over the phone; CODE STATUS is DNR/DNI Time spent evaluating patient, direct bedside care, chart review, placing orders, interpretation of diagnostic studies, discussion with consultants, patient, and family members, as well as other required patient management activities is 50 minutes Please note the above document was generated using voice recognition software. It may contain grammatical, syntax or spelling errors. Any formal questions or concerns about the content, text or information contained within the body of this dictation should be directly addressed to the provider for clarification Admission and Anticipated Discharge Date Admission Date: January 19, 2025 Subjective Patient seen and examined at bedside. Patient is alert oriented to self; has periods of agitation; does not follow directions/instructions. Review of Systems Review of Systems: Unobtainable due to cognitive status Physical Exam Physical Exam: Constitutional: Awake and oriented to self. Not in distress Respiratory: Bilateral vesicular breath sound Cardiovascular: RRR, no murmur, no edema Vessels: no JVD or carotid bruit Chest: normal inspection of chest Abdomen: normal bowel sounds, soft, nontender, no hepatosplenomegaly Musculoskeletal: no cyanosis or clubbing, extremities motor strength 5/5 Skin: no rashes, warm and dry normal turgor Neurologic: PERRL, withdraws to pain in all extremities Results & Data Results & Data Vital Signs (Past 12 Hours) Vital Signs Temp Pulse Pulse Resp BP Pulse Ox Pulse Ox 01/20/25 06:56 36.7 C 53 L 18 130/56 L 96 01/20/25 02:46 94 01/20/25 02:37 36.5 C 60 20 136/65 94 01/20/25 01:00 01/19/25 22:00 59 L O2 Del Method O2 Del Method 01/20/25 06:56 Room Air 01/20/25 02:46 Room Air 01/20/25 02:37 Room Air 01/20/25 01:00 Room Air 01/19/25 22:00 (1) AMS (altered mental status) Altered mental status type: unspecified Qualified Code(s): R41.82 - Altered mental status, unspecified
[2025-01-20] MEDS: DEXTROSE 5% 500 ML IV SCH (08:09)
--- NOTE | 2025-01-20 10:05 | Communication Note ---
Date of Service: January 20, 2025 Telemetry reviewed. SR in the 60s this am and 50s-60s last night with chronic left bundle branch block. Still somnolent. Continue to observe off of Beta john. Kane Rodarte DO
[2025-01-21 06:12] LABS: Hematocrit (blood only) 28.9 % (42.0-52.0); Hemoglobin 9.8 g/dl (14.0-18.0); Immature Granulocytes # (auto) 0.03 K/uL (0.01-0.20); Immature Granulocytes % (auto) 0.4 %; Mean Corpuscular Hemoglobin 30.2 pg (25.0-34.0); Mean Corpuscular Volume 89.2 fL (80.0-100.0); Platelet Count 171 K/uL (130-400); RDW Standard Deviation 47.1 fL (36.4-46.3); Red Blood Count 3.24 M/uL (4.70-6.10); White Blood Count 7.92 K/ul (4.8-10.8)
[2025-01-21 06:25] LABS: Anion Gap 5.0 (3-11); Blood Urea Nitrogen 19.0 mg/dl (6-23); Calcium 7.6 mg/dl (8.6-10.3); Carbon Dioxide 28.0 mmol/L (21-32); Chloride 109.0 mmol/L (98-107); Creatinine Clr Calc Pharmacy 46.8 ml/min; Glucose 87.0 mg/dl (70-99(Fasting)); Potassium 3.7 mmol/L (3.5-5.1); Sodium 142.0 mmol/L (136-145)
--- NOTE | 2025-01-21 08:32 | Hospitalist Progress Note ---
Date of Service January 21, 2025 Assessment & Plan (1) AMS (altered mental status): Plan: 89-year-old male with past medical history significant for nonobstructive CAD, history of dilated cardiomyopathy with return to normal systolic function, chronic left bundle branch block, history of CVA, history of anemia, history of hypertension history of severe dementia, history of BPH, history of polymyalgia rheumatica, osteoarthritis, history of prostate cancer currently living at dementia unit at [facility] was brought in because of unresponsiveness. Seems around 8 PM when staff went to wake him up he was difficult to arouse. Was very lethargic. Seems unresponsive. EMS was called. For EMS patient was bradycardic heart rates upper 40s. He was more awake for EMS. His blood pressure was soft. Atropine was not given . Pacer pads was pl aced on and patient was brought to the ER. Acute UTI Metabolic encephalopathy Patient with history of dementia was brought to the hospital with lethargy/unresponsive episode. Leukocytosis present on admission Urinalysis suggestive of infection CT abdomen pelvis does mild bilateral perinephric fat stranding Blood cultureno growth in 24 hours Urine culture pinpoint growth; final cx pending continue on Zosyn. Will follow-up on final culture results; plan to treat for 7 to 10 days of antibiotics ROGE Presented with creatinine of 2.9 Creatinine was 0.6 in Holding Lasix, lisinopril and hydrochlorothiazide Creatinine Improved with IV hydration; Plan to continue lisinopril at previous dose; will decrease Lasix to 20 mg once a day and stop hydrochlorothiazide Constipation and proctitis seen on CT abdomen/pelvis On antibiotics as above given Magnesium citrate with BM bisacodyl [place] daily Having regular bowel movements; Plan to place him on daily Miralax at discharge. Bradycardia Patient heart rate in 40s for EMS Plan to discontinue Coreg; will continue on memantine and donepezil History of nonobstructive CAD Continue aspirin and statin Holding beta-john for bradycardia Severe dementia Oriented to name only Continue Seroquel Monitor for delirium BPH On Flomax-continue Monitor for urinary retention Hypertension Holding Coreg, lisinopril and hydrochlorothiazide History of dysphagia And pured diet Ambulatory dysfunction Ambulates with walker PT OT when stable History of left bundle branch block History of CVA On aspirin and statin DVT prophylaxis Heparin subcu Disposition PT OT ordered; patient is clinically improving. Plan to discharge in next few days if mentation continues to improve and goes back to baseline. CODE STATUS is DNR/DNI Time spent evaluating patient, direct bedside care, chart review, placing orders, interpretation of diagnostic studies, discussion with consultants, patient, and family members, as well as other required patient management activities is 50 minutes Please note the above document was generated using voice recognition software. It may contain grammatical, syntax or spelling errors. Any formal questions or concerns about the content, text or information contained within the body of this dictation should be directly addressed to the provider for clarification Admission and Anticipated Discharge Date Admission Date: January 19, 2025 Subjective Patient seen and examined at bedside. He is having regular bowel movements. He is awake and oriented to self. No significant events overnight. Review of Systems Review of Systems: All systems reviewed & are unremarkable except as noted in Subjective Physical Exam Physical Exam: Constitutional: Awake and oriented to self. Not in distress Respiratory: Bilateral vesicular breath sound Cardiovascular: RRR, no murmur, no edema Vessels: no JVD or carotid bruit Chest: normal inspection of chest Abdomen: normal bowel sounds, soft, nontender, no hepatosplenomegaly Musculoskeletal: no cyanosis or clubbing, extremities motor strength 5/5 Skin: no rashes, warm and dry normal turgor Neurologic: PERRL, withdraws to pain in all extremities Results & Data Results & Data Vital Signs (Past 12 Hours) Vital Signs Temp Pulse Pulse Resp BP Pulse Ox O2 Del Method 01/21/25 07:15 36.7 C 61 18 155/77 H 94 Room Air 01/20/25 22:00 57 L (1) AMS (altered mental status) Altered mental status type: unspecified Qualified Code(s): R41.82 - Altered mental status, unspecified
[2025-01-21] MEDS: MEMANTINE HCL 5 MG TAB PO SCH (11:50)
[2025-01-21] MEDS: DONEPEZIL HCL 10 MG TAB PO SCH (20:55)
[2025-01-22] MEDS: FUROSEMIDE 20 MG TAB PO SCH (07:46)
--- NOTE | 2025-01-22 09:20 | Hospitalist Progress Note ---
Date of Service January 22, 2025 Assessment & Plan (1) AMS (altered mental status): Plan: 89-year-old male with past medical history significant for nonobstructive CAD, history of dilated cardiomyopathy with return to normal systolic function, chronic left bundle branch block, history of CVA, history of anemia, history of hypertension history of severe dementia, history of BPH, history of polymyalgia rheumatica, osteoarthritis, history of prostate cancer currently living at dementia unit at [facility] was brought in because of unresponsiveness. Seems around 8 PM when staff went to wake him up he was difficult to arouse. Was very lethargic. Seems unresponsive. EMS was called. For EMS patient was bradycardic heart rates upper 40s. He was more awake for EMS. His blood pressure was soft. Atropine was not given . Pacer pads was pl aced on and patient was brought to the ER. Acute UTI Metabolic encephalopathy Patient with history of dementia was brought to the hospital with lethargy/unresponsive episode. Leukocytosis present on admission Urinalysis suggestive of infection CT abdomen pelvis does mild bilateral perinephric fat stranding Blood cultureno growth in 24 hours Urine culture growing staph hemolyticus Given patient's clinical presentation and CT findings; continue on Zosyn while he is inpatient to treat for possible pyelonephritis. At discharge, plan to place him on Augmentin to complete total of 10 days of antibiotics. ROGE Presented with creatinine of 2.9 Creatinine was 0.6 in Creatinine Improved with IV hydration; Plan to continue lisinopril at previous dose; will decrease Lasix to 20 mg once a day and stop hydrochlorothiazide Constipation and proctitis seen on CT abdomen/pelvis On antibiotics as above given Magnesium citrate with BM bisacodyl [place] daily Having regular bowel movements; Plan to place him on daily Miralax at discharge. Bradycardia Patient heart rate in 40s for EMS Plan to discontinue Coreg And donepezil; continue on memantine History of nonobstructive CAD Continue aspirin and statin Holding beta-john for bradycardia Severe dementia Oriented to name only Continue Seroquel Monitor for delirium BPH On Flomax-continue Monitor for urinary retention Hypertension- on lisinopril and lasix History of dysphagia And pured diet Ambulatory dysfunction Ambulates with walker PT OT eval History of left bundle branch block History of CVA On aspirin and statin DVT prophylaxis Heparin subcu Disposition PT OT ordered; patient is clinically improving. Possible discharge in next few days CODE STATUS is DNR/DNI as per discussion with his brother/ Please note the above document was generated using voice recognition software. It may contain grammatical, syntax or spelling errors. Any formal questions or concerns about the content, text or information contained within the body of this dictation should be directly addressed to the provider for clarification Admission and Anticipated Discharge Date Admission Date: January 19, 2025 Subjective Patient seen and examined at bedside. He is saturating well in room air. Confused and agitated at times. No significant events overnight Review of Systems Review of Systems: All systems reviewed & are unremarkable except as noted in Subjective Physical Exam Physical Exam: Constitutional: Awake and oriented to self. Not in distress Respiratory: Bilateral vesicular breath sound Cardiovascular: RRR, no murmur, no edema Vessels: no JVD or carotid bruit Chest: normal inspection of chest Abdomen: normal bowel sounds, soft, nontender, no hepatosplenomegaly Musculoskeletal: no cyanosis or clubbing, extremities motor strength 5/5 Skin: no rashes, warm and dry normal turgor Neurologic: PERRL, moves all extremities Results & Data Results & Data Vital Signs (Past 12 Hours) Vital Signs Temp Pulse Pulse Pulse Resp BP Pulse Ox 01/22/25 07:50 36.6 C 51 L 16 162/67 H 96 01/22/25 04:03 36.2 C L 50 L 18 147/61 H 97 01/22/25 00:03 01/21/25 23:42 36.5 C 52 L 18 148/52 H 95 01/21/25 21:40 55 L O2 Del Method 01/22/25 07:50 Room Air 01/22/25 04:03 Room Air 01/22/25 00:03 Room Air 01/21/25 23:42 Room Air 01/21/25 21:40 (1) AMS (altered mental status) Altered mental status type: unspecified Qualified Code(s): R41.82 - Altered mental status, unspecified
[2025-01-23 07:11] LABS: Hematocrit (blood only) 31.6 % (42.0-52.0); Hemoglobin 10.5 g/dl (14.0-18.0); Immature Granulocytes # (auto) 0.03 K/uL (0.01-0.20); Immature Granulocytes % (auto) 0.5 %; Mean Corpuscular Hemoglobin 29.8 pg (25.0-34.0); Mean Corpuscular Volume 89.8 fL (80.0-100.0); Platelet Count 188 K/uL (130-400); RDW Standard Deviation 46.6 fL (36.4-46.3); Red Blood Count 3.52 M/uL (4.70-6.10); White Blood Count 6.00 K/ul (4.8-10.8)
[2025-01-23 07:33] LABS: Anion Gap 5.0 (3-11); Blood Urea Nitrogen 19.0 mg/dl (6-23); Calcium 8.0 mg/dl (8.6-10.3); Carbon Dioxide 29.0 mmol/L (21-32); Chloride 109.0 mmol/L (98-107); Creatinine Clr Calc Pharmacy 46.9 ml/min; Glucose 87.0 mg/dl (70-99(Fasting)); Potassium 4.0 mmol/L (3.5-5.1); Sodium 143.0 mmol/L (136-145)
[2025-01-23] MEDS: AMOXICILLIN/CLAVULANATE 875 MG TAB PO SCH (14:39)
--- NOTE | 2025-01-23 16:06 | Hospitalist Progress Note ---
Date of Service January 23, 2025 Assessment & Plan (1) AMS (altered mental status): Plan: 89-year-old male with past medical history significant for nonobstructive CAD, history of dilated cardiomyopathy with return to normal systolic function, chronic left bundle branch block, history of CVA, history of anemia, history of hypertension history of severe dementia, history of BPH, history of polymyalgia rheumatica, osteoarthritis, history of prostate cancer currently living at dementia unit at [facility] was brought in because of unresponsiveness. Seems around 8 PM when staff went to wake him up he was difficult to arouse. Was very lethargic. Seems unresponsive. EMS was called. For EMS patient was bradycardic heart rates upper 40s. He was more awake for EMS. His blood pressure was soft. Atropine was not given . Pacer pads was pl aced on and patient was brought to the ER. Acute UTI Metabolic encephalopathy Patient with history of dementia was brought to the hospital with lethargy/unresponsive episode. Leukocytosis present on admission Urinalysis suggestive of infection CT abdomen pelvis does mild bilateral perinephric fat stranding Blood cultureno growth in 24 hours Urine culture growing staph hemolyticus Given patient's clinical presentation and CT findings; treat for possible pyelonephritis. transition zosyn 01/19 to Augmentin to complete total of 10 days of antibiotics. ROGE Presented with creatinine of 2.9 Creatinine was 0.6 in Creatinine Improved with IV hydration; Plan to continue lisinopril at previous dose; will decrease Lasix to 20 mg once a day and stop hydrochlorothiazide Constipation and proctitis seen on CT abdomen/pelvis On antibiotics as above given Magnesium citrate with BM bisacodyl [place] daily c/w daily Miralax, hold for loose stool. Bradycardia Patient heart rate in 40s for EMS Plan to discontinue Coreg And donepezil; continue on memantine History of nonobstructive CAD: Continue aspirin and statin. Holding beta-john for bradycardia Severe dementia: Oriented to name only. Continue Seroquel. Monitor for delirium BPH: On Flomax-continue. Monitor for urinary retention Hypertension- on lisinopril and lasix History of dysphagia:on pured diet Ambulatory dysfunction: Ambulates with walker. PT OT eval History of left bundle branch block History of CVA: On aspirin and statin DVT prophylaxis: Heparin subcu Disposition: PT OT ordered; patient is clinically improving. Possible discharge in next few days CODE STATUS is DNR/DNI Admission and Anticipated Discharge Date Admission Date: January 19, 2025 Subjective Patient seen and examined at bedside. He is saturating well in room air. Confused and sleepy, woke up to exam. Physical Exam Physical Exam: Constitutional: sleepy, woke up to exam, appears confused. Not in distress Respiratory: Bilateral vesicular breath sound Cardiovascular: RRR, no murmur, no edema Vessels: no JVD or carotid bruit Chest: normal inspection of chest Abdomen: normal bowel sounds, soft, nontender, no hepatosplenomegaly Musculoskeletal: no cyanosis or clubbing, extremities motor strength 5/5 Skin: no rashes, warm and dry normal turgor Neurologic: PERRL, moves all extremities Results & Data Results & Data Vital Signs (Past 12 Hours) Vital Signs Temp Pulse Resp BP Pulse Ox O2 Del Method 01/23/25 15:33 36.6 C 58 L 18 121/57 L 96 Room Air 01/23/25 07:39 36.4 C L 56 L 18 137/66 95 Room Air (1) AMS (altered mental status) Altered mental status type: unspecified Qualified Code(s): R41.82 - Altered mental status, unspecified
[2025-01-24 06:18] LABS: Hematocrit (blood only) 30.7 % (42.0-52.0); Hemoglobin 10.4 g/dl (14.0-18.0); Mean Corpuscular Hemoglobin 30.2 pg (25.0-34.0); Mean Corpuscular Volume 89.2 fL (80.0-100.0); Platelet Count 198 K/uL (130-400); RDW Standard Deviation 47.3 fL (36.4-46.3); Red Blood Count 3.44 M/uL (4.70-6.10); White Blood Count 6.65 K/ul (4.8-10.8)
[2025-01-24 06:35] LABS: Anion Gap 5.0 (3-11); Blood Urea Nitrogen 19.0 mg/dl (6-23); Calcium 8.2 mg/dl (8.6-10.3); Carbon Dioxide 29.0 mmol/L (21-32); Chloride 109.0 mmol/L (98-107); Creatinine Clr Calc Pharmacy 50.4 ml/min; Glucose 84.0 mg/dl (70-99(Fasting)); Potassium 3.9 mmol/L (3.5-5.1); Sodium 143.0 mmol/L (136-145)
[2025-01-24 07:28] VITALS: RESP 17; TEMP 97.5; O2SAT 92
[2025-01-24] MEDS: POLYETHYLENE (MIRALAX) 17 GM PACK PO SCH (08:50)
--- NOTE | 2025-01-24 12:00 | Discharge Summary ---
Date of Service January 24, 2025 Admission HPI Per Admitting Provider 89-year-old male with past medical history significant for nonobstructive CAD, history of dilated cardiomyopathy with return to normal systolic function, chronic left bundle branch block, history of CVA, history of anemia, history of hypertension history of severe dementia, history of BPH, history of polymyalgia rheumatica, osteoarthritis, history of prostate cancer currently living at dementia unit at [facility] was brought in because of unresponsiveness. Seems around 8 PM when staff went to wake him up he was difficult to arouse. Was very lethargic. Seems unresponsive. EMS was called. For EMS patient was bradycardic heart rates upper 40s. He was more awake for EMS. His blood pressure was soft. Atropine was not given . Pacer pads was placed on and patient was brought to the ER. In the ER currently patient is alert and awake. Can tell his name. When asked about pain he says no. Patient has severe dementia and could not get history from patient currently. Called [facility]. As per [facility] patient was unresponsive so he was sent in here. Patient was doing okay until this episode. He is only oriented to name as per [facility]. He ambulates with a wheeled walker. He is on pured diet. No recent fevers. No cough. No nausea or vomiting. No diarrhea or constipation. Called brother. Brother says patient is DNR. When checked with [facility] they do not have DNR status on computer. But staff said they are going to recheck it. Patient was DNR last admission here at [facility]. Past medical history. As mentioned above Past surgical history. History of cardiac catheterization. Mild to moderate coronary disease. Colonoscopy. Social history. Former smoker. No alcohol use. No drug use. Family history. Brother had cancer. Father had colon cancer. Heart disorder. Mother had hypertension. Sister had dementia. Admission Exam Per Admitting Provider General- Not in acute distress Head- atraumatic Eyes- PERRL. ENT- oropharynx clear Neck- supple, no JVD. Lungs- clear to auscultation no wheezing or crackles Heart- regular rate and rhythm; no murmur, no gallop. Abdomen- normal bowel sounds, soft, nontender, no distension Extremities- no pretibial edema, no erythema seen Neuro- alert, oriented x 1; PERRL, ; no facial palsy; no dysarthria; obeys simple commands, moves extremities Principal Diagnosis Acute UTI Metabolic encephalopathy ROGE Constipation and proctitis Bradycardia Discharge Exam Constitutional: sleepy, woke up to exam, oriented to self. Not in distress Respiratory: Bilateral vesicular breath sound Cardiovascular: RRR, no murmur, no edema Vessels: no JVD or carotid bruit Chest: normal inspection of chest Abdomen: normal bowel sounds, soft, nontender, no hepatosplenomegaly Musculoskeletal: no cyanosis or clubbing, Skin: no rashes, warm and dry normal turgor Neurologic: PERRL, moves all extremities Discharge Data Allergies Allergy/AdvReac Type Severity Reaction Status Date / Time Sulfa (Sulfonamide Allergy Unknown Unknown Verified 01/19/25 00:05 Antibiotics) Consultations 01/19/25 01:18 ED Decision to Admit Stat 01/19/25 08:00 Consult Cardiology Routine Ordered Studies 01/18/25 22:17 CT head/brain wo con Stat 01/18/25 23:35 CT abd pelvis wo con Stat Hospital Course (1) AMS (altered mental status): 89-year-old male with past medical history significant for nonobstructive CAD, history of dilated cardiomyopathy with return to normal systolic function, chronic left bundle branch block, history of CVA, history of anemia, history of hypertension history of severe dementia, history of BPH, history of polymyalgia rheumatica, osteoarthritis, history of prostate cancer currently living at dementia unit at [facility] was brought in because of unresponsiveness. Seems around 8 PM when staff went to wake him up he was difficult to arouse. Was very lethargic. Seems unresponsive. EMS was called. For EMS patient was bradycardic heart rates upper 40s. He was more awake for EMS. His blood pressure was soft. Atropine was not given . Pacer pads was placed on and patient was brought to the ER. Acute UTI Metabolic encephalopathy Patient with history of dementia was brought to the hospital with lethargy/unresponsive episode. Leukocytosis present on admission Urinalysis suggestive of infection CT abdomen pelvis does mild bilateral perinephric fat stranding Blood cultureno growth in 24 hours Urine culture growing staph hemolyticus Given patient's clinical presentation and CT findings; treat for possible pyelonephritis. transition zosyn 8/ to Augmentin to complete total of 10 days of antibiotics. Add probiotic. ROGE Presented with creatinine of 2.9 Creatinine was 0.6 in Creatinine Improved with IV hydration; Plan to continue lisinopril at previous dose; will decrease Lasix to 20 mg once a day and stop hydrochlorothiazide Constipation and proctitis seen on CT abdomen/pelvis On antibiotics as above given Magnesium citrate with BM bisacodyl OK daily c/w daily bowel regimen, hold for loose stool. Bradycardia Patient heart rate in 40s for EMS Plan to discontinue Coreg And donepezil; continue on memantine History of nonobstructive CAD: Continue aspirin and statin. Holding beta-john for bradycardia Severe dementia: Oriented to name only. Continue Seroquel. Monitor for delirium BPH: On Flomax-continue. Monitor for urinary retention Hypertension- on lisinopril and lasix History of dysphagia:on pured diet Ambulatory dysfunction: Ambulates with walker. PT OT eval History of left bundle branch block History of CVA: On aspirin and statin DVT prophylaxis: Heparin subcu Disposition: PT OT ordered; patient is clinically improving. Possible discharge in next few days CODE STATUS is DNR/DNI Pt's brother nj was given a phone call, left message on voicemail to call us back for general update. Patient is being discharged to [facility] with home health with following instructions at the point of discharge: Follow-up with your primary care physician within a week time and likely you will need labs CBC/CMP/magnesium/phosphorus. You will be discharged on antibiotic to complete the course for complicated UTI. You were diagnosed with acute kidney injury, you received IV fluid and it resolved.Your Lasix dose has been decreased to 20 mg daily and your hydrochlorothiazide has been stopped. Continue to utilize [id number] stool softener/laxative with a goal of 1-2 bowel movements a day. Because of your decreased heart rate while in the hospital, your home medications Coreg and donepezil has been discontinued. Take your medications as prescribed. Please make sure that you are able to get your medications today by calling your pharmacy before you leave the hospital so that your treatment continuity is not broken. Home Health Attestation I certify that this patient is under my care and that I, or a physicians assistant designer working with me, had a face to-face encounter that meets the home health [id number] encounter requirements with this patient. The encounter with the patient was in whole, or in part, for the following medical condition, which is the primary reason for home health care (list medical condition): Sepsis I certify that, based on my findings, the following services are medically necessary home health services: My clinical findings support the need for the above services because: OT Assess ADL Status and Restore Function w ADLs PT Assessment for Endurance / Balance / Strength PT Eval for Safety and Mobility PT Eval for Safety, Gait Training, Assistive Devices PT Gait and Balance Training, Strengthening and Safety Skilled Nsg Assessment Further, I certify that my clinical findings support that this patient is homebound (i.e. absences from home require considerable and taxing effort and are for medical reasons or sabianist services or infrequently or of short duration when for other reasons) because: Transportation Assistance/Unable to Leave Home Unassisted Certification for Home Health Services: Based on the above findings, I certify that this patient is confined to the home and needs intermittent penitentiary care, physical therapy and/or speech therapy or continues to need occupational therapy. The patient is under my care, and I have initiated the establishment of the plan of care. This patient will be followed by a physician who will periodically review the plan of care. Total Time Total Time Spent Total Time Spent (In Minutes): 35 Discharge Plan Discharge Items Patient Disposition: Home - Home Health Services Reason For Visit: SEPSIS, UTI Discharge Diagnosis: Acute UTI Metabolic encephalopathy ROGE Constipation and proctitis Bradycardia Condition on Discharge: Serious Activity: Resume your previous activity Non-emergency contact: Primary Care Provider Call non-emergency contact if: you have any medication questions and your symptoms worsen Follow-up/Referrals: [facility] [Primary Care Provider] - Diet: Heart Healthy Diet Texture: Pureed (blended smooth) Addtl Attending Provider Instructions: Follow-up with your primary care physician within a week time and likely you will need labs CBC/CMP/magnesium/phosphorus. You will be discharged on antibiotic to complete the course for complicated UTI. You were diagnosed with acute kidney injury, you received IV fluid and it resolved.Your Lasix dose has been decreased to 20 mg daily and your hydrochlorothiazide has been stopped. Continue to utilize [id number] stool softener/laxative with a goal of 1-2 bowel movements a day. Because of your decreased heart rate while in the hospital, your home medications Coreg and donepezil has been discontinued. Take your medications as prescribed. Please make sure that you are able to get your medications today by calling your pharmacy before you leave the hospital so that your treatment continuity is not broken. Pending Studies at Discharge: No Stand-Alone Forms: My [facility], Smoking Cessation Medications and DC Order Prescriptions: New furosemide 20 mg Tablet 20 mg PO QAM Qty: 30 0RF amoxicillin-pot clavulanate 875-125 mg Tablet 1 tab PO BID 5 Days Qty: 10 0RF docusate sodium [Colace] 100 mg capsule 100 mg PO BID PRN (Reason: constipation) Qty: 60 0RF Probiotic 3 billion cell capsule 3,000 mmu cells PO DAILY 7 Days Qty: 7 0RF Rx Instructions: administer with a meal Continued ferrous sulfate [FeroSul] 325 mg (65 mg iron) tablet 325 mg PO Q2D simvastatin 40 mg tablet 40 mg PO HS famotidine 20 mg tablet 20 mg PO QAM melatonin 3 mg Tablet 9 mg PO HS lisinopril 5 mg tablet 5 mg PO QAM quetiapine 50 mg tablet 50 mg PO TID aspirin [Aspirin Childrens] 81 mg Tablet,Chewable 81 mg PO DAILY divalproex 125 mg capsule, delayed rel sprinkle 250 mg PO BID tamsulosin 0.4 mg capsule 0.4 mg PO DAILY memantine 5 mg tablet 5 mg PO BID Therapeutic-M Tablet 1 tab PO DAILY menthol-zinc oxide [CalaSoothe] 0.44-20.6 % Ointment 1 applic TOPICAL QS Rx Instructions: apply to perineal/rectal area until healed acetaminophen 325 mg Tablet 650 mg PO Q4 PRN (Reason: Fever Or Pain) [facility] 07/14/1 Mg/Ml Cream cream 1 ml topical Q8 PRN (Reason: Anxiety) Rx Instructions: APPLY TO WRIST OR BACK Discontinued carvedilol 12.5 mg Tablet 12.5 mg PO BID hydrochlorothiazide 12.5 mg tablet 12.5 mg PO 2XWK Rx Instructions: TUESDAY & THURSDAYS furosemide 40 mg tablet 40 mg PO QAM donepezil 10 mg tablet 10 mg PO HS Discharge Orders: Discharge Order (Routine); Ordered 01/24/25 Ordered By: Terrell Laughlin Admission Data Admit Date/Time: 01/19/25 02:03 Attending Provider: Terrell Laughlin Admit Provider: Raji Lewis Primary Care Provider: [facility] Other Providers: Raji Lewis; [facility] Fax
[2025-01-24 15:14] VITALS: BP 151/71; PULSE 58
== END 2025-01-24 15:14 | disposition home health service (06) | DRG 690 ==
LOC: ED 21:55 → SUATTDRO 01-19 02:03 → EDINP 01-19 02:03 → 2S 01-19 02:46